=== PATIENT | female | born 1980 | race Two or more races ===

== ENCOUNTER 2017-09-14 08:56 | Day surgery (SDC) | payer OTHER ==
[~2017-09-14 08:56] MED LIST: Bupivacaine 0.25% 10 ML SDV ONE; Lactated Ringers 1,000 ML IV SCH; Methylene Blue 50 MG/10 ML Ampule ONE; Sodium Chloride 0.9% 10 ML Syringe FLUSH PRN; Sodium Chloride 0.9% 2.5 ML Syringe FLUSH PRN; Vasopressin 20 Units/1 ML MDV ONE
[2017-09-14] MEDS ORDERED: Doxycycline 100 MG Cap PO ONE (09:00)
--- NOTE | 2017-09-14 09:45 | PCM.PREANE ---
Preanesthetic Assessment - Anesthesia/Transfusion/Family Hx Anesthesia History: No Prior Anesthesia Family History of Anesthesia Reaction: No Transfusion History: No Prior Transfusion(s) Intubation History: Unknown - Review of Systems General: No Symptoms Pulmonary: No Symptoms Cardiovascular: No Symptoms Gastrointestinal: No Symptoms Neurological: No Symptoms Other: Reports: None - Physical Assessment Height: 1.57 m Weight: 75.75 kg ASA Class: 2 Mental Status: Alert & Oriented x3 Airway Class: Mallampati = 2 Dentition: Reports: Normal Dentition Thyro-Mental Finger Breadths: 3 Mouth Opening Finger Breadths: 3 ROM/Head Extension: Full Lungs: Clear to Auscultation, Normal Respiratory Effort Cardiovascular: Regular Rate, Regular Rhythm - Allergies Allergies/Adverse Reactions: Allergies Allergy/AdvReac Type Severity Reaction Status Date / Time No Known Allergies Allergy Verified 09/09/17 12:58 - Blood Blood Available: No - Anesthesia Plan Pre-Op Medication Ordered: None - Acknowledgements Anesthesia Type Planned: General Anesthesia Pt an Appropriate Candidate for the Planned Anesthesia: Yes Alternatives and Risks of Anesthesia Discussed w Pt/Guardian: Yes Pt/Guardian Understands and Agrees with Anesthesia Plan: Yes PreAnesthesia Questionnaire Other HEENT History: wears glasses Gastrointestinal 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: Other (See Below) (h/o acid reflux, now ok) ELIGIBILITY MANAGER 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 Neurological 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: Migraines Other Neuro History: just started taking Propranolol fro migranes Psychiatric 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: Anxiety, Panic Attack Endocrine/Metabolic 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: Obesity/BMI 30+ Hematologic 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: Other (See Below) (h/o anemia) - SUBSTANCE USE Smoking Status *Q: Former Smoker (quit 09/05) Tobacco Use Within Last Twelve Months: No Recreational Drug Use History: No - HOME MEDS Home Medications: Home Meds Aspirin/Acetaminophen/Caffeine [Eql Migraine Formula Caplet] 2 tab PO Q6H PRN [History] Ethinyl Estradiol/Drospirenone [Loryna 3 MG-0.02 MG] 1 tab PO DAILY 09/09/17 [ History] FLUoxetine HCl [Prozac] 20 mg PO QAM 09/09/17 [History] LORazepam 1 mg PO TID PRN 09/09/17 [History] Propranolol [Inderal] 40 mg PO DAILY 09/09/17 [History] SUMAtriptan [Imitrex] 50 mg PO ASDIRECTED PRN 09/09/17 [History] tiZANidine [Zanaflex] 4 mg PO BEDTIME 09/09/17 [History] - CURRENT (IN HOUSE) MEDS Current Meds: Current Medications Lactated Ringer's (Ringers, Lactated) 1,000 mls @ 125 mls/hr IV ASDIRECTED TUNDE Last Admin: 09/14/17 09:22 Dose: 125 mls/hr Sodium Chloride (Saline Flush) 10 ml FLUSH ASDIRECTED PRN PRN Reason: Keep Vein Open Sodium Chloride (Saline Flush) 2.5 ml FLUSH ASDIRECTED PRN PRN Reason: Keep Vein Open Discontinued Medications Bupivacaine HCl (Sensorcaine-Mpf 0.25%) Confirm Administered Dose 20 ml .ROUTE .STK-MED ONE Stop: 09/14/17 08:46 Doxycycline Hyclate (Vibramycin) 100 mg PO ONETIME ONE Stop: 09/14/17 09:01 Last Admin: 09/14/17 09:25 Dose: 100 mg Methylene Blue (Provayblue) Confirm Administered Dose 50 mg .ROUTE .STK-MED ONE Stop: 09/14/17 08:45 Vasopressin (Vasopressin) Confirm Administered Dose 20 units .ROUTE .STK-MED ONE Stop: 09/14/17 08:45
[2017-09-14] MEDS ORDERED: Succinylcholine/Normal Saline 200 MG/10 ML Syringe ONE (10:14)
[2017-09-14] MEDS ORDERED: diphenhydrAMINE 50 MG/ML SDV ONE (10:14)
[2017-09-14] MEDS ORDERED: Lidocaine 2% 5 ML SDV ONE (10:14)
[2017-09-14] MEDS ORDERED: fentaNYL 250 MCG/5 ML SDV ONE (10:14)
[2017-09-14] MEDS ORDERED: Ondansetron 4 MG/2 ML SDV ONE (10:14)
[2017-09-14] MEDS ORDERED: Dexamethasone 4 MG/ML 5 ML MDV ONE (10:14)
[2017-09-14] MEDS ORDERED: Rocuronium 10 MG/ML 10 ML Syringe ONE (10:14)
[2017-09-14] MEDS ORDERED: ceFAZolin/Dextrose,Iso-Osmotic 2 GM/50 ML Duplex Bag IV ONE (10:14)
[2017-09-14] MEDS ORDERED: Midazolam 1 MG/ML 2 ML SDV ONE (10:14)
[2017-09-14] MEDS ORDERED: Propofol 200 MG/20 ML SDV ONE (10:14)
[2017-09-14] MEDS ORDERED: ePHEDrine 50 MG/ML SDV ONE (11:36)
[2017-09-14] MEDS ORDERED: Neostigmine Methylsulfate 1 MG/ML 5 ML Syringe ONE (12:46)
[2017-09-14] MEDS ORDERED: Glycopyrrolate 0.2 MG/ML SDV ONE (12:46)
[2017-09-14] MEDS ORDERED: Ketorolac 30 MG/ML SDV ONE (12:48)
[2017-09-14] MEDS: fentaNYL 100 MCG/2 ML SDV IVPUSH PRN ×2 (13:20→13:25)
--- NOTE | 2017-09-14 13:31 | PCM.OPNOTE ---
- General Post-Op/Procedure Note Date of Surgery/Procedure: 09/14/17 Operative Procedure(s): Hysteroscopy Dilatation and Curretage. Laparoscopy chromotubation Findings: 10 week sized anterverted uterus Hysteroscopy showed proliferative endometrium , bilateral ostia not visualised. there was no indentation of cavity by fibroid Laparoscopy showed Bulky uterus , Normal appearing tubes and ovaries , No endometriosis noted Minimal spillage from left tube , No spillage from right tube Fluid deficit; 600 LR Pre Op Diagnosis: Infertility. Chronic pelvic pain. Symptomatic fibroid uterus Post-Op Diagnosis: same Anesthesia Technique: General ET Tube Primary Surgeon: Peter Sandoval Anesthesia Provider: Sudhakar Griffin Radi Pathology: None Fluid Replacement, Intraop: 2,000 Output, Urine Amount: 0 Condition: Good
[2017-09-14 15:02] VITALS: BP 116/72
--- NOTE | 2017-09-17 11:36 | OR ---
SURGEON: LULA ARTHUR DATE OF PROCEDURE: 09/14/2017 OPERATIVE PROCEDURE: Hysteroscopy, dilatation and curettage, Diagnostic laparoscopy with chromopertubation PREOPERATIVE DIAGNOSES: Infertility, chronic pelvic pain, and symptomatic uterine fibroids. POSTOPERATIVE DIAGNOSES: Infertility, chronic pelvic pain, and symptomatic uterine fibroids. ANESTHESIA: General endotracheal. IV FLUID: 2000 mL. URINE OUTPUT: 0. ESTIMATED BLOOD LOSS: 5 mL. FINDING: A 10-week sized, anteverted, bulky uterus on examination. Hysteroscopy showed proliferative endometrium. Bilateral ostia not visualized. There was no indentation of the cavity by uterine fibroids. Laparoscopy showed a bulky uterus, normal-appearing tubes and ovaries. No endometriosis noted. Minimal spillage noted from the left tube. No spillage from the right tube. The fluid deficit was 600 of LR. 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 She was seen complaining of chronic pelvic pain, which was affecting her quality of life. The patient's exam was extremely tender in the office, and as a result, the patient had ultrasound done, which showed a fibroid uterus with hypoechoic heterogeneous right ovarian nodule that could not exclude also an endometrioma. The patient had a repeat ultrasound done, which showed the uterine fibroid and could not rule out submucosal component, and the endometrium was not fully evaluated, so a hysteroscopy was recommended. The patient also was consented for laparoscopic chromotubation. Due to the patient's chronic pelvic pain and inability to tolerate a vaginal exam and HSG , the patient As a result laparoscopic to assess for endometrosis and also chromotubation to evaluate for tubal patency . The patient was given these options, and the patient accepted. She was explained the risks, benefits, and alternatives, and she desired to proceed with a hysteroscopy and diagnositic laparoscopy with chromotubation DESCRIPTION OF PROCEDURE: The patient was taken to the operating room, where general anesthesia was administered without difficulty. The patient was placed in the dorsolithotomy position with Jose stirrups. An examination under anesthesia revealed a bulky uterus. The patient was then prepared and draped in normal sterile fashion. A weighted speculum was inserted into the posterior aspect of the vagina. A tenaculum was used to grasp the anterior lip of the cervix. The uterus was then carefully sounded to about 9 cm. The cervical os was sequentially dilated to accommodate the hysteroscope. The 0-degree MyoSure hysteroscope was then placed under direct visualization. The uterus was then distended with the distending media. The aforementioned findings were noted. The hysteroscope was then withdrawn,. The scope was withdrawn, and the dilatation and curettage was done. After this was done, the uterine manipulator was then placed into the cervix. Attention was then paid to the abdomen,a 5mm incision was made, after Marcaine was injected at the subumbilical fold. The trocar was then advanced through the incision via direct entry. Entry of cavity was confirmed by visualization and a low intraabdominal pressure .pneumoperitoneum was then obtained to 15 mmHg. The uterus was then manipulated to view the entire pelvic structures, and a right lower quadrant port was made 2 fingerbreadths medial and above the anterior superior iliac spine. The trocar was then placed under direct visualization. The ovary and tube were then manipulated on the right and left side to have a good visualization of the pelvis. No endometriosis deposit was noted. Then, methylene blue was injected via the manipulator into the uterus. Very minimal spillage was noted from the left tube. There was no spillage from the right tube. After this was done, the trocar was then removed. The pneumoperitoneum of the abdomen was then deflated. All instrument and pad counts were correct x2. The laparoscopic incision was sutured with 4-0 Monocryl. Bandage was placed. The patient tolerated the procedure well and was taken to the recovery room in stable condition. YURI LOU /[id number] SOURAV
== END 2017-09-14 14:45 | disposition home or self-care (01) ==
LOC: MERGE 08:56 → MW.SDS 08:56
PROVIDERS: ATTEND Obstetrics & Gynecology
DX: D25.9 Leiomyoma of uterus, unspecified (principal); N97.9 Female infertility, unspecified; G89.29 Other chronic pain; R10.2 Pelvic and perineal pain; F41.9 Anxiety disorder, unspecified; K21.9 Gastro-esophageal reflux disease without esophagitis; Z79.899 Other long term (current) drug therapy; Z87.891 Personal history of nicotine dependence
CPT/HCPCS: 36415; 49320; 58350; 58558; 84703; 85027; 86850; 86900; 86901; 88305; A9270; J0690; J1100; J1200; J1885; J2250; J2405; J3010; J7120; 00952; J2704

== ENCOUNTER 2017-12-07 06:45 | Observation (INO) | payer OTHER ==
[2017-12-07] MEDS ORDERED: Sodium Chloride 0.9% 10 ML Syringe FLUSH PRN (07:00)
[2017-12-07] MEDS ORDERED: Sodium Chloride 0.9% 2.5 ML Syringe FLUSH PRN (07:00)
[2017-12-07] MEDS: Lactated Ringers 1,000 ML IV SCH ×2 (07:15→15:39)
--- NOTE | 2017-12-07 07:15 | PCM.PREANE ---
Preanesthetic Assessment - Anesthesia/Transfusion/Family Hx Anesthesia History: Prior Anesthesia Without Reaction Family History of Anesthesia Reaction: No Transfusion History: No Prior Transfusion(s) Intubation History: Unknown - Review of Systems General: No Symptoms Pulmonary: No Symptoms Cardiovascular: No Symptoms Gastrointestinal: No Symptoms Neurological: No Symptoms Other: Reports: None - Physical Assessment Height: 1.57 m Weight: 77.564 kg ASA Class: 2 Mental Status: Alert & Oriented x3 Airway Class: Mallampati = 2 Dentition: Reports: Normal Dentition Thyro-Mental Finger Breadths: 3 Mouth Opening Finger Breadths: 2 ROM/Head Extension: Full Lungs: Clear to Auscultation, Normal Respiratory Effort Cardiovascular: Regular Rate, Regular Rhythm - Allergies Allergies/Adverse Reactions: Allergies Allergy/AdvReac Type Severity Reaction Status Date / Time No Known Allergies Allergy Verified 12/02/17 09:28 - Blood Blood Available: No - Anesthesia Plan Pre-Op Medication Ordered: None - Acknowledgements Anesthesia Type Planned: General Anesthesia Pt an Appropriate Candidate for the Planned Anesthesia: Yes Alternatives and Risks of Anesthesia Discussed w Pt/Guardian: Yes Pt/Guardian Understands and Agrees with Anesthesia Plan: Yes PreAnesthesia Questionnaire HEENT 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: Other (See Below) Other HEENT History: wears glasses Cardiovascular 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: Other (See Below) Other Cardiovascular History: states had a murmur in her early teens Respiratory 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: None Gastrointestinal 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: None, Other (See Below) (h/o GERD) Genitourinary 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: None BUCCARO 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 Other OB/BYN History: spontaneous AB x15 Musculoskeletal 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: None Neurological 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: Migraines Psychiatric 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: Anxiety, Depression, Panic Attack Endocrine/Metabolic 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: Obesity/BMI 30+ Hematologic 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: Other (See Below) (h/o anemia) Immunologic 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: None Oncologic (Cancer) 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: None Dermatologic 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: None - Infectious Disease History Infectious Disease 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: None - Past Surgical History Head Surgeries/Procedures: Reports: None HEENT Surgical 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: None Cardiovascular Surgical 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: None Respiratory Surgical 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: None GI Surgical 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: None Female Surgical 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: Other (See Below) Other Female Surgeries/Procedures: hysteroscopy Endocrine Surgical 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: None Musculoskeletal Surgical 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: None - SUBSTANCE USE Smoking Status *Q: Former Smoker Tobacco Use Within Last Twelve Months: No Recreational Drug Use History: No - HOME MEDS Home Medications: Home Meds Aspirin/Acetaminophen/Caffeine [Eql Migraine Formula Caplet] 2 tab PO Q6H PRN [History] FLUoxetine HCl [Prozac] 20 mg PO QAM 09/09/17 [History] LORazepam 1 mg PO TID PRN 09/09/17 [History] SUMAtriptan [Imitrex] 50 mg PO ASDIRECTED PRN 09/09/17 [History] tiZANidine [Zanaflex] 4 mg PO BEDTIME 09/09/17 [History] - CURRENT (IN HOUSE) MEDS Current Meds: Current Medications Cefazolin Sodium (Ancef) 1 gm IM ONETIME ONE Stop: 12/07/17 08:01 Lactated Ringer's (Ringers, Lactated) 1,000 mls @ 125 mls/hr IV ASDIRECTED TUNDE Sodium Chloride (Saline Flush) 10 ml FLUSH ASDIRECTED PRN PRN Reason: Keep Vein Open Sodium Chloride (Saline Flush) 2.5 ml FLUSH ASDIRECTED PRN PRN Reason: Keep Vein Open
[2017-12-07] MEDS ORDERED: Ketorolac 30 MG/ML SDV ONE (07:16)
[2017-12-07] MEDS ORDERED: Rocuronium 10 MG/ML 10 ML Syringe ONE (07:16)
[2017-12-07] MEDS ORDERED: fentaNYL 100 MCG/2 ML SDV ONE ×3 (07:16→11:12)
[2017-12-07] MEDS ORDERED: Lidocaine 2% 5 ML SDV ONE (07:16)
[2017-12-07] MEDS ORDERED: Midazolam 1 MG/ML 2 ML SDV ONE (07:16)
[2017-12-07] MEDS ORDERED: Ondansetron 4 MG/2 ML SDV ONE (07:16)
[2017-12-07] MEDS ORDERED: Glycopyrrolate 0.2 MG/ML SDV ONE ×2 (07:16→08:25)
[2017-12-07] MEDS ORDERED: fentaNYL 250 MCG/5 ML SDV ONE (07:17)
[2017-12-07] MEDS ORDERED: Propofol 200 MG/20 ML SDV ONE (07:22)
[2017-12-07 07:28] LABS: CHLORIDE,CL 102 mmol/L (98-107); SODIUM,NA 135 mmol/L (136-145)
[2017-12-07] MEDS ORDERED: Bupivacaine 0.5% 30 ML SDV ONE (07:28)
[2017-12-07] MEDS ORDERED: Bupivacaine 0.25% 10 ML SDV ONE (07:28)
[2017-12-07] MEDS ORDERED: Octyl 2-Cyanoacrylate 1 Tube ONE (07:28)
[2017-12-07] MEDS ORDERED: Methylene Blue 50 MG/10 ML Ampule ONE (07:51)
[2017-12-07] MEDS ORDERED: Oxytocin 10 Units/1 ML SDV ONE (07:53)
[2017-12-07] MEDS ORDERED: Sodium Chloride 0.9% 20 ML ONE (07:54)
[2017-12-07] MEDS ORDERED: ceFAZolin 1 GM Vial ONE (07:54)
[2017-12-07] MEDS ORDERED: ceFAZolin 1 GM Vial IM ONE (08:00)
[2017-12-07] MEDS ORDERED: Vasopressin 20 Units/1 ML MDV ONE (08:03)
[2017-12-07] MEDS ORDERED: Neostigmine Methylsulfate 1 MG/ML 5 ML Syringe ONE (08:25)
[2017-12-07] MEDS ORDERED: Phenylephrine/Normal Saline 100 MCG/ML 10 ML Syringe ONE (08:25)
[2017-12-07] MEDS ORDERED: Promethazine 25 MG/ML SDV IM PRN (10:39)
[2017-12-07] MEDS ORDERED: Ketorolac 30 MG/ML SDV IVPUSH ONE (10:39)
[2017-12-07] MEDS ORDERED: Morphine 4 MG/ML Syringe IVPUSH PRN (10:39)
[2017-12-07] MEDS ORDERED: Ondansetron 4 MG/2 ML SDV IVPUSH PRN (10:39)
--- NOTE | 2017-12-07 10:39 | PCM.OPNOTE ---
- General Post-Op/Procedure Note Date of Surgery/Procedure: 12/07/17 Operative Procedure(s): Abdominal myomectomy Findings: Fibroid uterus , with Normal appearing uterus and ovaries 4cm fibroid removed from anterior uterine wall Pre Op Diagnosis: Chronic pelvic pain. Uterine fibroid. Recurrent spontaneous Post-Op Diagnosis: same Anesthesia Technique: General LMA Primary Surgeon: Peter Sandoval Secondary Surgeon: Dorothea Bose Pathology: Uterine fibroid Fluid Replacement, Intraop: 1,200 Output, Urine Amount: 150 EBL in mLs: 20 Complications: None Condition: Good Free Text/Narrative:: Anterior fibroid removed, Pitressin 20u in 30 units of NS myometrium sutured in layers with 0 vicryl Serosa with baseball sutured with 3.0 vicryl
--- NOTE | 2017-12-07 11:08 | PCM.POSTAN ---
POST ANESTHESIA ASSESSMENT - MENTAL STATUS Mental Status: Alert, Oriented - VITAL SIGNS Pulse Rate: 88 SaO2: 99 Resp Rate: 18 Blood Pressure: 116/71 - RESPIRATORY Respiratory Status: Respiratory Rate WNL, Airway Patent, O2 Saturation Stable - CARDIOVASCULAR CV Status: Pulse Rate WNL, Blood Pressure Stable - GASTROINTESTINAL GI Status: No Symptoms - POST OP HYDRATION Hydration Status: Adequate & Stable
[2017-12-07] MEDS: fentaNYL 100 MCG/2 ML SDV IVPUSH PRN ×2 (11:11→11:16)
[2017-12-07] MEDS: Ketorolac 30 MG/ML SDV IVPUSH SCH ×3 (11:59→23:00)
[2017-12-07] MEDS: Metoclopramide 10 MG/2 ML SDV IVPUSH SCH ×2 (12:26→20:17)
[2017-12-07] MEDS: Acetaminophen/oxyCODONE 325-5 MG Tab PO PRN ×2 (15:43→20:19)
--- NOTE | 2017-12-07 16:26 | PCM48HPAN ---
Post Anesthesia Note - EVALUATION WITHIN 48HRS OF ANESTHETIC Vital Signs in Normal Range: Yes Patient Participated in Evaluation: Yes Respiratory Function Stable: Yes Airway Patent: Yes Cardiovascular Function Stable: Yes Hydration Status Stable: Yes Pain Control Satisfactory: Yes Nausea and Vomiting Control Satisfactory: Yes Mental Status Recovered: Yes Pulse Rate: 88 Resp Rate: 16 Blood Pressure: 116/71
--- NOTE | 2017-12-07 20:50 | PCM.SURGPN ---
- General Info Date of Service: 12/07/17 Date of Surgery/Procedure: 12/07/17 POD#: 0 Post-Op Diagnosis: Fibroid uterus Functional Status: Reports: Pain Controlled, Tolerating Diet, Other (Quinn in place 55cc/hr ) - Review of Systems General: Reports: No Symptoms HEENT: Reports: No Symptoms Pulmonary: Reports: No Symptoms Cardiovascular: Reports: No Symptoms Gastrointestinal: Reports: No Symptoms Genitourinary: Reports: No Symptoms Musculoskeletal: Reports: No Symptoms Skin: Reports: No Symptoms Neurological: Reports: No Symptoms Psychiatric: Reports: No Symptoms - Patient Data Vitals - Most Recent: Last Vital Signs Temp 36.8 C 12/07/17 19:23 Pulse 83 12/07/17 19:23 Resp 20 12/07/17 19:23 BP 104/56 L 12/07/17 19:23 Pulse Ox 96 12/07/17 19:23 Weight - Most Recent: 77.564 kg I&O - Last 24 Hours: Intake & Output 12/07/17 12/07/17 12/07/17 06:59 14:59 22:59 Intake Total 3100 Output Total 340 160 Balance 2760 -160 Lab Results Last 24 Hrs: Laboratory Results - last 24 hr 12/07/17 12/07/17 12/07/17 Range/Units 07:05 07:05 07:05 WBC 9.04 (4.0-11.0) K/uL RBC 5.00 (4.30-5.90) M/uL Hgb 12.0 (12.0-16.0) g/dL Hct 38.1 (36.0-46.0) % MCV 76.2 L (80.0-98.0) fL MCH 24.0 L (27.0-32.0) pg MCHC 31.5 (31.0-37.0) g/dL RDW Std Deviation 45.1 (28.0-62.0) fl RDW Coeff of [place] 17 H (11.0-15.0) % Plt Count 423 H (150-400) K/uL MPV 9.40 (7.40-12.00) fL Nucleated RBC % 0.0 /100WBC Nucleated RBCs # 0 K/uL Sodium 135 L (136-145) mmol/L Potassium 4.1 (3.5-5.1) mmol/L Chloride 102 (98-107) mmol/L Carbon Dioxide 24.9 (21.0-32.0) mmol/L BUN 16 (7.0-18.0) mg/dL Creatinine 1.0 (0.6-1.0) mg/dL Est Cr Clr Drug Dosing 60.92 mL/min Estimated GFR (MDRD) > 60.0 ml/min Glucose 110 H (74-106) mg/dL Calcium 8.7 (8.5-10.1) mg/dL HCG, Qual NEGATIVE (NEG) Blood Type Antibody Screen Crossmatch 12/07/17 Range/Units 07:05 WBC (4.0-11.0) K/uL RBC (4.30-5.90) M/uL Hgb (12.0-16.0) g/dL Hct (36.0-46.0) % MCV (80.0-98.0) fL MCH (27.0-32.0) pg MCHC (31.0-37.0) g/dL RDW Std Deviation (28.0-62.0) fl RDW Coeff of [place] (11.0-15.0) % Plt Count (150-400) K/uL MPV (7.40-12.00) fL Nucleated RBC % /100WBC Nucleated RBCs # K/uL Sodium (136-145) mmol/L Potassium (3.5-5.1) mmol/L Chloride (98-107) mmol/L Carbon Dioxide (21.0-32.0) mmol/L BUN (7.0-18.0) mg/dL Creatinine (0.6-1.0) mg/dL Est Cr Clr Drug Dosing mL/min Estimated GFR (MDRD) ml/min Glucose (74-106) mg/dL Calcium (8.5-10.1) mg/dL HCG, Qual (NEG) Blood Type O POSITIVE Antibody Screen NEGATIVE Crossmatch See Detail Med Orders - Current: Current Medications Fentanyl (Sublimaze) 50 mcg IVPUSH Q5M PRN PRN Reason: Pain (severe 7-10) Stop: 12/08/17 11:10 Last Admin: 12/07/17 11:16 Dose: 50 mcg Lactated Ringer's (Ringers, Lactated) 1,000 mls @ 125 mls/hr IV ASDIRECTED [facility] Last Admin: 12/07/17 15:39 Dose: 125 mls/hr Ketorolac Tromethamine (Toradol) 30 mg IVPUSH Q6H [facility] Stop: 12/12/17 10:46 Last Admin: 12/07/17 17:09 Dose: 30 mg Metoclopramide HCl (Reglan) 10 mg IVPUSH Q8H [facility] Last Admin: 12/07/17 20:17 Dose: 10 mg Morphine Sulfate (Morphine) 4 mg IVPUSH Q2H PRN PRN Reason: Pain (severe 7-10) Last Admin: 12/07/17 10:54 Dose: 4 mg Ondansetron HCl (Zofran) 4 mg IVPUSH Q6H PRN PRN Reason: Nausea/Vomiting Oxycodone/Acetaminophen (Percocet 325-5 Mg) 1 tab PO Q4H PRN PRN Reason: Pain (moderate 4-6) Last Admin: 12/07/17 20:19 Dose: 1 tab Oxycodone/Acetaminophen (Percocet 325-5 Mg) 2 tab PO Q4H PRN PRN Reason: Pain (moderate 4-6) Promethazine HCl (Phenergan) 25 mg IM Q6H PRN PRN Reason: Nausea/Vomiting Sodium Chloride (Saline Flush) 10 ml FLUSH ASDIRECTED PRN PRN Reason: Keep Vein Open Sodium Chloride (Saline Flush) 2.5 ml FLUSH ASDIRECTED PRN PRN Reason: Keep Vein Open Discontinued Medications Bupivacaine HCl (Sensorcaine-Mpf 0.25%) Confirm Administered Dose 20 ml .ROUTE .STK-MED ONE Stop: 12/07/17 07:29 Bupivacaine HCl (Marcaine 0.5%) Confirm Administered Dose 30 ml .ROUTE .STK-MED ONE Stop: 12/07/17 07:29 Cefazolin Sodium (Ancef) 1 gm IM ONETIME ONE Stop: 12/07/17 08:01 Last Admin: 12/07/17 12:11 Dose: Not Given Cefazolin Sodium (Ancef) Confirm Administered Dose 1 gm .ROUTE .STK-MED ONE Stop: 12/07/17 07:55 Fentanyl (Sublimaze) Confirm Administered Dose 100 mcg .ROUTE .STK-MED ONE Stop: 12/07/17 07:17 Fentanyl (Sublimaze) Confirm Administered Dose 250 mcg .ROUTE .[facility] ONE Stop: 12/07/17 07:18 Fentanyl (Sublimaze) Confirm Administered Dose 100 mcg .ROUTE .[facility] ONE Stop: 12/07/17 09:37 Fentanyl (Sublimaze) Confirm Administered Dose 100 mcg .ROUTE .[facility] ONE Stop: 12/07/17 11:13 Last Admin: 12/07/17 12:17 Dose: Not Given Glycopyrrolate (Robinul) Confirm Administered Dose 0.2 mg .ROUTE .[facility] ONE Stop: 12/07/17 07:17 Glycopyrrolate (Robinul) Confirm Administered Dose 0.6 mg .ROUTE .[facility] ONE Stop: 12/07/17 08:26 Sodium Chloride (Normal Saline) Confirm Administered Dose 20 mls @ as directed .ROUTE .[facility] ONE Stop: 12/07/17 07:55 Ketorolac Tromethamine (Toradol) Confirm Administered Dose 30 mg .ROUTE .[facility] ONE Stop: 12/07/17 07:17 Ketorolac Tromethamine (Toradol) 30 mg IVPUSH ONETIME ONE Stop: 12/07/17 10:40 Last Admin: 12/07/17 12:19 Dose: Not Given Lidocaine (Xylocaine-Mpf 2%) Confirm Administered Dose 5 ml .ROUTE .[facility] ONE Stop: 12/07/17 07:17 Methylene Blue (Provayblue) Confirm Administered Dose 50 mg .ROUTE .[facility] ONE Stop: 12/07/17 07:52 Midazolam HCl (Versed 1 Mg/Ml) Confirm Administered Dose 2 mg .ROUTE .[facility] ONE Stop: 12/07/17 07:17 Neostigmine Methylsulfate (Neostigmine) Confirm Administered Dose 5 mg .ROUTE .[facility] ONE Stop: 12/07/17 08:26 Octyl Cyanoacrylate (Dermabond Advance) Confirm Administered Dose 1 applic .ROUTE .[facility] ONE Stop: 12/07/17 07:29 Ondansetron HCl (Zofran) Confirm Administered Dose 4 mg .ROUTE .[facility] ONE Stop: 12/07/17 07:17 Oxytocin (Pitocin) Confirm Administered Dose 20 unit .ROUTE .[facility] ONE Stop: 12/07/17 07:54 Phenylephrine HCl (Phenylephrine In Ns 100 Mcg/Ml) Confirm Administered Dose 1 mg .ROUTE .STK-MED ONE Stop: 12/07/17 08:26 Propofol (Diprivan 20 Ml) Confirm Administered Dose 200 mg .ROUTE .STK-MED ONE Stop: 12/07/17 07:23 Rocuronium [place] (Zemuron) Confirm Administered Dose 100 mg .ROUTE .STK-MED ONE Stop: 12/07/17 07:17 Vasopressin (Vasopressin) Confirm Administered Dose 20 units .ROUTE .STK-MED ONE Stop: 12/07/17 08:04 - Exam Wound/Incisions: Dressing Dry and Intact General: Alert Neck: Supple Lungs: Clear to Auscultation Cardiovascular: Regular Rate, Regular Rhythm GI/Abdominal Exam: Other (Dressing c/d/i) Skin: Warm Neurological: No New Focal Deficit Psy/Mental Status: Alert - Problem List & Annotations (1) S/P myomectomy SNOMED Code(s): 561675467, 519467580 Code(s): Z98.890 - OTHER SPECIFIED POSTPROCEDURAL STATES Status: Acute Current Visit: Yes - Problem List Review Problem List Initiated/Reviewed/Updated: Yes - My Orders Last 24 Hours: Active Orders 24 hr Category Date Time Status Patient Status [ADT] Routine ADT 12/07/17 06:00 Active Patient Status [ADT] Routine ADT 12/07/17 10:39 Active Bradycardia-Neuroaxis [facility] [RC] ROUTINE Care 12/07/17 11:10 Active Hypertension-Neuroaxis [facility] [RC] ROUTINE Care 12/07/17 11:10 Active Hypotension-Neuroaxis [employer] [RC] ROUTINE Care 12/07/17 11:10 Active Notify Provider Intake and Out [RC] ASDIRECTED Care 12/07/17 10:39 Active Notify Provider Vital Signs [RC] ASDIRECTED Care 12/07/17 10:39 Active Oxygen Therapy [RC] ASDIRECTED Care 12/07/17 10:39 Active RT Incentive Spirometry [RC] Q2HWA Care 12/07/17 10:39 Active Up With Assistance [RC] PER UNIT ROUTINE Care 12/07/17 10:39 Active Up ad Mariely [RC] PER UNIT ROUTINE Care 12/07/17 10:39 Active Urinary Catheter Removal [RC] Per Unit Routine Care 12/07/17 10:39 Active Vital Signs [RC] PER UNIT ROUTINE Care 12/07/17 06:00 Active Vital Signs [RC] PER UNIT ROUTINE Care 12/07/17 10:39 Active Advance Diet Instructions [DIET] Diet 12/07/17 Lunch Active BASIC METABOLIC PANEL,BMP [CHEM] AM Lab 12/08/17 05:11 Ordered CBC WITH AUTO DIFF [HEME] AM Lab 12/08/17 05:11 Ordered RED BLOOD CELLS LP [BBK] Urgent Lab 12/07/17 07:05 Results TYPE AND SCREEN [BBK] Urgent Lab 12/07/17 07:05 Results Acetaminophen/oxyCODONE [Percocet 325-5 MG] Med 12/07/17 10:39 Active 1 tab PO Q4H PRN Acetaminophen/oxyCODONE [Percocet 325-5 MG] Med 12/07/17 10:39 Active 2 tab PO Q4H PRN Ketorolac [Toradol] Med 12/07/17 11:00 Active 30 mg IVPUSH Q6H Lactated Ringers [Ringers, Lactated] 1,000 ml Med 12/07/17 06:00 Active IV ASDIRECTED Metoclopramide [Reglan] Med 12/07/17 11:00 Active 10 mg IVPUSH Q8H Morphine Med 12/07/17 10:39 Active 4 mg IVPUSH Q2H PRN Ondansetron [Zofran] Med 12/07/17 10:39 Active 4 mg IVPUSH Q6H PRN Promethazine [Phenergan] Med 12/07/17 10:39 Active 25 mg IM Q6H PRN Sodium Chloride 0.9% [Saline Flush] Med 12/07/17 07:00 Active 10 ml FLUSH ASDIRECTED PRN Sodium Chloride 0.9% [Saline Flush] Med 12/07/17 07:00 Active 2.5 ml FLUSH ASDIRECTED PRN fentaNYL [Sublimaze] Med 12/07/17 11:10 Active 50 mcg IVPUSH Q5M PRN Peripheral IV Discontinue [OM.PC] Routine Oth 12/07/17 10:39 Ordered Peripheral IV Insertion Adult [OM.PC] Urgent Oth 12/07/17 06:00 Ordered Sequential Compression Device [OM.PC] Per Unit Routine Oth 12/07/17 06:00 Ordered Sequential Compression Device [OM.PC] Per Unit Routine Oth 12/07/17 10:39 Ordered Resuscitation Status Routine Resus Stat 12/07/17 10:39 Ordered Medication Orders Fentanyl (Sublimaze) 50 mcg IVPUSH Q5M PRN PRN Reason: Pain (severe 7-10) Stop: 12/08/17 11:10 Last Admin: 12/07/17 11:16 Dose: 50 mcg Admin: 12/07/17 11:11 Dose: 50 mcg Lactated Ringer's (Ringers, Lactated) 1,000 mls @ 125 mls/hr IV ASDIRECTED [facility] Last Admin: 12/07/17 15:39 Dose: 125 mls/hr Infusion: 12/07/17 15:15 Dose: 125 mls/hr Admin: 12/07/17 07:15 Dose: 125 mls/hr Ketorolac Tromethamine (Toradol) 30 mg IVPUSH Q6H [facility] Stop: 12/12/17 10:46 Last Admin: 12/07/17 17:09 Dose: 30 mg Admin: 12/07/17 11:59 Dose: Metoclopramide HCl (Reglan) 10 mg IVPUSH Q8H [facility] Last Admin: 12/07/17 20:17 Dose: 10 mg Admin: 12/07/17 12:26 Dose: 10 mg Morphine Sulfate (Morphine) 4 mg IVPUSH Q2H PRN PRN Reason: Pain (severe 7-10) Last Admin: 12/07/17 10:54 Dose: 4 mg Ondansetron HCl (Zofran) 4 mg IVPUSH Q6H PRN PRN Reason: Nausea/Vomiting Oxycodone/Acetaminophen (Percocet 325-5 Mg) 1 tab PO Q4H PRN PRN Reason: Pain (moderate 4-6) Last Admin: 12/07/17 20:19 Dose: 1 tab Admin: 12/07/17 15:43 Dose: 1 tab Oxycodone/Acetaminophen (Percocet 325-5 Mg) 2 tab PO Q4H PRN PRN Reason: Pain (moderate 4-6) Promethazine HCl (Phenergan) 25 mg IM Q6H PRN PRN Reason: Nausea/Vomiting Sodium Chloride (Saline Flush) 10 ml FLUSH ASDIRECTED PRN PRN Reason: Keep Vein Open Sodium Chloride (Saline Flush) 2.5 ml FLUSH ASDIRECTED PRN PRN Reason: Keep Vein Open - Assessment Assessment (Free Text/Narrative):: 37yo P0 ,0 , 15,0 s/p abdominal myomectomy , POD 0 stable - Plan Plan (Free Text/Narrative):: Incentive spiromentry IVF Toradol q 6hrs Pain control as needed SCD Labs in Am
[2017-12-08] MEDS: Acetaminophen/oxyCODONE 325-5 MG Tab PO PRN ×4 (00:07→19:31)
[2017-12-08] MEDS: Lactated Ringers 1,000 ML IV SCH (03:51)
[2017-12-08] MEDS: Metoclopramide 10 MG/2 ML SDV IVPUSH SCH ×3 (04:06→19:34)
[2017-12-08] MEDS: Ketorolac 30 MG/ML SDV IVPUSH SCH ×2 (05:14→11:38)
[2017-12-08] MEDS ORDERED: Ibuprofen 600 MG Tab PO PRN (08:46)
--- NOTE | 2017-12-08 08:51 | PCM.SURGPN ---
- General Info Date of Service: 12/08/17 Date of Surgery/Procedure: 12/07/17 POD#: 1 Functional Status: Reports: Pain Controlled, Tolerating Diet, Ambulating, Urinating - Review of Systems General: Reports: No Symptoms HEENT: Reports: No Symptoms Pulmonary: Reports: No Symptoms Cardiovascular: Reports: No Symptoms Gastrointestinal: Reports: No Symptoms Genitourinary: Reports: No Symptoms Musculoskeletal: Reports: No Symptoms Skin: Reports: No Symptoms Neurological: Reports: No Symptoms Psychiatric: Reports: No Symptoms - Patient Data Vitals - Most Recent: Last Vital Signs Temp 36.3 C 12/08/17 03:53 Pulse 88 12/08/17 03:53 Resp 20 12/08/17 03:53 BP 96/54 L 12/08/17 03:53 Pulse Ox 96 12/08/17 03:53 Weight - Most Recent: 77.564 kg I&O - Last 24 Hours: Intake & Output 12/07/17 12/08/17 12/08/17 22:59 06:59 14:59 Intake Total 1271 Output Total 1235 975 Balance -1235 296 Lab Results Last 24 Hrs: Laboratory Results - last 24 hr 12/08/17 12/08/17 Range/Units 05:08 05:08 WBC 9.52 (4.0-11.0) K/uL RBC 3.90 L (4.30-5.90) M/uL Hgb 9.4 L (12.0-16.0) g/dL Hct 30.3 L (36.0-46.0) % MCV 77.7 L (80.0-98.0) fL MCH 24.1 L (27.0-32.0) pg MCHC 31.0 (31.0-37.0) g/dL RDW Std Deviation 47.6 (28.0-62.0) fl RDW Coeff of [place] 17 H (11.0-15.0) % Plt Count 311 (150-400) K/uL MPV 9.40 (7.40-12.00) fL Neut % (Auto) 60.3 (48.0-80.0) % Lymph % (Auto) 29.9 (16.0-40.0) % [place] % (Auto) 7.2 (0.0-15.0) % Eos % (Auto) 2.4 (0.0-7.0) % Baso % (Auto) 0.2 (0.0-1.5) % Neut # (Auto) 5.7 (1.4-5.7) K/uL Lymph # (Auto) 2.9 H (0.6-2.4) K/uL [place] # (Auto) 0.7 (0.0-0.8) K/uL Eos # (Auto) 0.2 (0.0-0.7) K/uL Baso # (Auto) 0.0 (0.0-0.1) K/uL Nucleated RBC % 0.0 /100WBC Nucleated RBCs # 0 K/uL Sodium 137 (136-145) mmol/L Potassium 4.4 (3.5-5.1) mmol/L Chloride 104 (98-107) mmol/L Carbon Dioxide 25.8 (21.0-32.0) mmol/L BUN 16 (7.0-18.0) mg/dL Creatinine 1.1 H (0.6-1.0) mg/dL Est Cr Clr Drug Dosing 55.38 mL/min Estimated GFR (MDRD) 55.9 ml/min Glucose 115 H (74-106) mg/dL Calcium 8.3 L (8.5-10.1) mg/dL Med Orders - Current: Current Medications Fentanyl (Sublimaze) 50 mcg IVPUSH Q5M PRN PRN Reason: Pain (severe 7-10) Stop: 12/08/17 11:10 Last Admin: 12/07/17 11:16 Dose: 50 mcg Lactated Ringer's (Ringers, Lactated) 1,000 mls @ 125 mls/hr IV ASDIRECTED [facility] Last Admin: 12/08/17 03:51 Dose: 125 mls/hr Ibuprofen (Motrin) 600 mg PO Q6H PRN PRN Reason: Abdominal Pain Ketorolac Tromethamine (Toradol) 30 mg IVPUSH Q6H [facility] Stop: 12/12/17 10:46 Last Admin: 12/08/17 05:14 Dose: 30 mg Metoclopramide HCl (Reglan) 10 mg IVPUSH Q8H [facility] Last Admin: 12/08/17 04:06 Dose: 10 mg Morphine Sulfate (Morphine) 4 mg IVPUSH Q2H PRN PRN Reason: Pain (severe 7-10) Last Admin: 12/07/17 10:54 Dose: 4 mg Ondansetron HCl (Zofran) 4 mg IVPUSH Q6H PRN PRN Reason: Nausea/Vomiting Oxycodone/Acetaminophen (Percocet 325-5 Mg) 1 tab PO Q4H PRN PRN Reason: Pain (moderate 4-6) Last Admin: 12/07/17 20:19 Dose: 1 tab Oxycodone/Acetaminophen (Percocet 325-5 Mg) 2 tab PO Q4H PRN PRN Reason: Pain (moderate 4-6) Last Admin: 12/08/17 06:39 Dose: 2 tab Promethazine HCl (Phenergan) 25 mg IM Q6H PRN PRN Reason: Nausea/Vomiting Sodium Chloride (Saline Flush) 10 ml FLUSH ASDIRECTED PRN PRN Reason: Keep Vein Open Sodium Chloride (Saline Flush) 2.5 ml FLUSH ASDIRECTED PRN PRN Reason: Keep Vein Open Discontinued Medications Bupivacaine HCl (Sensorcaine-Mpf 0.25%) Confirm Administered Dose 20 ml .ROUTE .STK-MED ONE Stop: 12/07/17 07:29 Bupivacaine HCl (Marcaine 0.5%) Confirm Administered Dose 30 ml .ROUTE .STK-MED ONE Stop: 12/07/17 07:29 Cefazolin Sodium (Ancef) 1 gm IM ONETIME ONE Stop: 12/07/17 08:01 Last Admin: 12/07/17 12:11 Dose: Not Given Cefazolin Sodium (Ancef) Confirm Administered Dose 1 gm .ROUTE .STK-MED ONE Stop: 12/07/17 07:55 Fentanyl (Sublimaze) Confirm Administered Dose 100 mcg .ROUTE .STK-MED ONE Stop: 12/07/17 07:17 Fentanyl (Sublimaze) Confirm Administered Dose 250 mcg .ROUTE .STK-MED ONE Stop: 12/07/17 07:18 Fentanyl (Sublimaze) Confirm Administered Dose 100 mcg .ROUTE .STK-MED ONE Stop: 12/07/17 09:37 Fentanyl (Sublimaze) Confirm Administered Dose 100 mcg .ROUTE .STK-MED ONE Stop: 12/07/17 11:13 Last Admin: 12/07/17 12:17 Dose: Not Given Glycopyrrolate (Robinul) Confirm Administered Dose 0.2 mg .ROUTE .[facility] ONE Stop: 12/07/17 07:17 Glycopyrrolate (Robinul) Confirm Administered Dose 0.6 mg .ROUTE .[facility] ONE Stop: 12/07/17 08:26 Sodium Chloride (Normal Saline) Confirm Administered Dose 20 mls @ as directed .ROUTE .[facility] ONE Stop: 12/07/17 07:55 Ketorolac Tromethamine (Toradol) Confirm Administered Dose 30 mg .ROUTE .[facility]- [facility] ONE Stop: 12/07/17 07:17 Ketorolac Tromethamine (Toradol) 30 mg IVPUSH ONETIME ONE Stop: 12/07/17 10:40 Last Admin: 12/07/17 12:19 Dose: Not Given Lidocaine (Xylocaine-Mpf 2%) Confirm Administered Dose 5 ml .ROUTE .[facility] ONE Stop: 12/07/17 07:17 Methylene Blue (Provayblue) Confirm Administered Dose 50 mg .ROUTE .[facility] ONE Stop: 12/07/17 07:52 Midazolam HCl (Versed 1 Mg/Ml) Confirm Administered Dose 2 mg .ROUTE .[facility] ONE Stop: 12/07/17 07:17 Neostigmine Methylsulfate (Neostigmine) Confirm Administered Dose 5 mg .ROUTE .[facility] ONE Stop: 12/07/17 08:26 Octyl Cyanoacrylate (Dermabond Advance) Confirm Administered Dose 1 applic .ROUTE .[facility] ONE Stop: 12/07/17 07:29 Ondansetron HCl (Zofran) Confirm Administered Dose 4 mg .ROUTE .[facility] ONE Stop: 12/07/17 07:17 Oxytocin (Pitocin) Confirm Administered Dose 20 unit .ROUTE .[facility]-MED ONE Stop: 12/07/17 07:54 Phenylephrine HCl (Phenylephrine In Ns 100 Mcg/Ml) Confirm Administered Dose 1 mg .ROUTE .STK-MED ONE Stop: 12/07/17 08:26 Propofol (Diprivan 20 Ml) Confirm Administered Dose 200 mg .ROUTE .STK-MED ONE Stop: 12/07/17 07:23 Rocuronium [place] (Zemuron) Confirm Administered Dose 100 mg .ROUTE .STK-MED ONE Stop: 12/07/17 07:17 Vasopressin (Vasopressin) Confirm Administered Dose 20 units .ROUTE .STK-MED ONE Stop: 12/07/17 08:04 - Exam Wound/Incisions: Dressing Dry and Intact General: Alert HEENT: Pupils Equal Neck: Supple Lungs: Clear to Auscultation Cardiovascular: Regular Rate, Regular Rhythm GI/Abdominal Exam: Normal Bowel Sounds Extremities: Normal Inspection - Problem List & Annotations (1) S/P myomectomy SNOMED Code(s): 383796231, 782816806 Code(s): Z98.890 - OTHER SPECIFIED POSTPROCEDURAL STATES Status: Acute Current Visit: Yes - Problem List Review Problem List Initiated/Reviewed/Updated: Yes - My Orders Last 24 Hours: Active Orders 24 hr Category Date Time Status Patient Status [ADT] Routine ADT 12/07/17 10:39 Active Bradycardia-Neuroaxis [employer] [RC] ROUTINE Care 12/07/17 11:10 Active Hypertension-Neuroaxis [facility] [RC] ROUTINE Care 12/07/17 11:10 Active Hypotension-Neuroaxis [employer] [RC] ROUTINE Care 12/07/17 11:10 Active Notify Provider Intake and Out [RC] ASDIRECTED Care 12/07/17 10:39 Active Notify Provider Vital Signs [RC] ASDIRECTED Care 12/07/17 10:39 Active Oxygen Therapy [RC] ASDIRECTED Care 12/07/17 10:39 Active RT Incentive Spirometry [RC] Q2HWA Care 12/07/17 10:39 Active Up With Assistance [RC] PER UNIT ROUTINE Care 12/07/17 10:39 Active Up ad Mariely [RC] PER UNIT ROUTINE Care 12/07/17 10:39 Active Urinary Catheter Removal [RC] Per Unit Routine Care 12/07/17 10:39 Active Vital Signs [RC] PER UNIT ROUTINE Care 12/07/17 10:39 Active Advance Diet Instructions [DIET] Diet 12/07/17 Lunch Active Acetaminophen/oxyCODONE [Percocet 325-5 MG] Med 12/07/17 10:39 Active 1 tab PO Q4H PRN Acetaminophen/oxyCODONE [Percocet 325-5 MG] Med 12/07/17 10:39 Active 2 tab PO Q4H PRN Enoxaparin [Lovenox] Med 12/08/17 09:00 Ordered 40 mg SUBCUT Q24H Ibuprofen [Motrin] Med 12/08/17 08:46 Ordered 600 mg PO Q6H PRN Ketorolac [Toradol] Med 12/07/17 11:00 Active 30 mg IVPUSH Q6H Metoclopramide [Reglan] Med 12/07/17 11:00 Active 10 mg IVPUSH Q8H Morphine Med 12/07/17 10:39 Active 4 mg IVPUSH Q2H PRN Ondansetron [Zofran] Med 12/07/17 10:39 Active 4 mg IVPUSH Q6H PRN Promethazine [Phenergan] Med 12/07/17 10:39 Active 25 mg IM Q6H PRN fentaNYL [Sublimaze] Med 12/07/17 11:10 Active 50 mcg IVPUSH Q5M PRN Peripheral IV Discontinue [OM.PC] Routine Oth 12/07/17 10:39 Ordered Sequential Compression Device [OM.PC] Per Unit Routine Oth 12/07/17 10:39 Ordered Resuscitation Status Routine Resus Stat 12/07/17 10:39 Ordered Medication Orders Fentanyl (Sublimaze) 50 mcg IVPUSH Q5M PRN PRN Reason: Pain (severe 7-10) Stop: 12/08/17 11:10 Last Admin: 12/07/17 11:16 Dose: 50 mcg Admin: 12/07/17 11:11 Dose: 50 mcg Lactated Ringer's (Ringers, Lactated) 1,000 mls @ 125 mls/hr IV ASDIRECTED [facility] Last Admin: 12/08/17 03:51 Dose: 125 mls/hr Infusion: 12/07/17 23:39 Dose: 125 mls/hr Admin: 12/07/17 15:39 Dose: 125 mls/hr Infusion: 12/07/17 15:15 Dose: 125 mls/hr Admin: 12/07/17 07:15 Dose: 125 mls/hr Ibuprofen (Motrin) 600 mg PO Q6H PRN PRN Reason: Abdominal Pain Ketorolac Tromethamine (Toradol) 30 mg IVPUSH Q6H [facility] Stop: 12/12/17 10:46 Last Admin: 12/08/17 05:14 Dose: 30 mg Admin: 12/07/17 23:00 Dose: 30 mg Admin: 12/07/17 17:09 Dose: 30 mg Admin: 12/07/17 11:59 Dose: Metoclopramide HCl (Reglan) 10 mg IVPUSH Q8H [facility] Last Admin: 12/08/17 04:06 Dose: 10 mg Admin: 12/07/17 20:17 Dose: 10 mg Admin: 12/07/17 12:26 Dose: 10 mg Morphine Sulfate (Morphine) 4 mg IVPUSH Q2H PRN PRN Reason: Pain (severe 7-10) Last Admin: 12/07/17 10:54 Dose: 4 mg Ondansetron HCl (Zofran) 4 mg IVPUSH Q6H PRN PRN Reason: Nausea/Vomiting Oxycodone/Acetaminophen (Percocet 325-5 Mg) 1 tab PO Q4H PRN PRN Reason: Pain (moderate 4-6) Last Admin: 12/07/17 20:19 Dose: 1 tab Admin: 12/07/17 15:43 Dose: 1 tab Oxycodone/Acetaminophen (Percocet 325-5 Mg) 2 tab PO Q4H PRN PRN Reason: Pain (moderate 4-6) Last Admin: 12/08/17 06:39 Dose: 2 tab Admin: 12/08/17 00:07 Dose: 2 tab Promethazine HCl (Phenergan) 25 mg IM Q6H PRN PRN Reason: Nausea/Vomiting Sodium Chloride (Saline Flush) 10 ml FLUSH ASDIRECTED PRN PRN Reason: Keep Vein Open Sodium Chloride (Saline Flush) 2.5 ml FLUSH ASDIRECTED PRN PRN Reason: Keep Vein Open - Assessment Assessment (Free Text/Narrative):: 37 yo P0 s/p Abdominal myomectomy , tolerating regular diet , voiding and ambulating , POD 1 - Plan Plan (Free Text/Narrative):: Pain control as needed Am labs reviewed Lovenox 40mg Possible discharge tomorrow
[2017-12-08] MEDS: Enoxaparin 40 MG/0.4 ML Syringe SUBCUT SCH (09:18)
--- NOTE | 2017-12-08 10:51 | OR ---
SURGEON: LULA ARTHUR DATE OF PROCEDURE: 12/07/2017 PREOPERATIVE DIAGNOSES: Fibroid uterus and recurrent spontaneous . POSTOPERATIVE DIAGNOSES: Fibroid uterus and recurrent spontaneous . PROCEDURES: 1. Laparotomy. 2. Myomectomy. ANESTHESIA: General. ESTIMATED BLOOD LOSS: 20 mL. IV FLUIDS: 1200 mL. URINE OUTPUT: 150 mL clear fluid. SPECIMEN: One uterine fibroid. FINDINGS: On bimanual exam, the patient had an enlarged anterior uterus with anterior fibroid noted. The uterus was freely mobile.the patient had an anterior fibroid measuring about 4 cm. Both ovaries and tubes appeared normal. BRIEF HISTORY ABOUT THE PATIENT: She is a 37-year-old 15, para 0-0-15,0. She has history of recurrent SAB. The patient was seen complaining of infertility and severe pelvic pain. As a result of infertility and recurrent spontaneous ABs, the patient was referred to the Reproductive Endocrinology. Prior to referral, the patient had ultrasound done, which showed fibroid uterus measuring about 9 x 6 x 7 cm with an anterior fibroid measuring 4 x 4 x 4 cm , fibroid was noted to probably be impinging in the endometrium; however, the patient had hysteroscopy done which showed normal endometrium. RADHA recommended a myomectomy before starting fertility treatment. The patient was informed of the risks, benefits, and alternatives and agreed to proceed with the procedure. The patient signed the consent and she was allowed to ask the questions. PROCEDURE IN DETAIL: The patient was taken to the operating room, where general anesthesia was performed without difficulty. The patient was placed in the dorsal supine position with the Jose stirrups. The patient was prepared and also draped in the normal sterile fashion. The attention was paid to the perineum, speculum was placed in vagina to expose the cervix. the cervix was dilated then a catheter was placed into the uterine cavity. The catheter was attached to a syringe with methylene blue. After these, the attention was then paid to the abdomen. The Pfannenstiel skin incision was made with a scalpel and was carried down to the fascia with the Bovie. The fascia was incised and extended laterally, then the fascia was from the rectus muscles superiorly and also inferiorly. The rectus muscle was in the midline down to the level of the pubic symphysis. The preperitoneal fat tissue was opened and the peritoneum was entered with the aid of the hemostat. . The peritoneum was extended upward and laterally to expose the uterus. The Mustapha retractor was placed to help with retraction The bowel was packed with moist laparotomy sponges. The uterus was then elevated to the operative field. An anterior fibroid was noted. 20 units of vasopressin in 30 normal saline was injected, 10 mL of the solution was injected to the fibroid. A vertical incision was made on anterior myometrium overlaying the fibroid. The towel clip was used to grasp the fibroid. The fibroid was then from the myometrium with gentle traction and also the dissection with the Metzenbaum scissors and also the Bovie. With complete removal of the fibroid, the cavity was then closed in 2 layers with 0 Vicryl. the serosa were closed with 3-0 Vicryl stitch in a baseball stitch fashion. The Interceed was placed on top of the incision to reduce adhesions. The abdomen was irrigated prior to the Interceed being placed. The uterus was then placed back into the pelvis. The peritoneum was closed with 2-0 Vicryl. The rectus muscle was then closed with two mattress sutures. The fascia was closed with 0 Vicryl and subcutaneous fat was closed with plain gut. The skin incision was closed with 4-0 Monocryl on a Boogie needle. A Dermabond was used to secure the incision. Then, the catheter was removed from the uterus. All instrument and pad counts were correct x2. The patient was taken to the recovery room in stable condition. YURI LOU /[id number] SOURAV
[2017-12-09] MEDS: Acetaminophen/oxyCODONE 325-5 MG Tab PO PRN ×2 (01:18→08:26)
[2017-12-09] MEDS: Metoclopramide 10 MG/2 ML SDV IVPUSH SCH (03:00)
--- NOTE | 2017-12-09 08:43 | PCM.SURGPN ---
- General Info Date of Service: 12/09/17 Date of Surgery/Procedure: 12/07/17 POD#: 2 Post-Op Diagnosis: s/p Abdominal myomectomy Functional Status: Reports: Pain Controlled, Tolerating Diet, Ambulating, Urinating - Review of Systems General: Reports: No Symptoms HEENT: Reports: No Symptoms Pulmonary: Reports: No Symptoms Cardiovascular: Reports: No Symptoms Gastrointestinal: Reports: No Symptoms Genitourinary: Reports: No Symptoms Musculoskeletal: Reports: No Symptoms Skin: Reports: No Symptoms Neurological: Reports: No Symptoms Psychiatric: Reports: No Symptoms - Patient Data Vitals - Most Recent: Last Vital Signs Temp 36.2 C 12/09/17 03:55 Pulse 57 L 12/09/17 03:55 Resp 20 12/09/17 03:55 BP 94/52 L 12/09/17 03:55 Pulse Ox 97 12/09/17 03:55 Weight - Most Recent: 77.564 kg Med Orders - Current: Current Medications Enoxaparin Sodium (Lovenox) 40 mg SUBCUT Q24H [facility] Last Admin: 12/08/17 09:18 Dose: 40 mg Lactated Ringer's (Ringers, Lactated) 1,000 mls @ 125 mls/hr IV ASDIRECTED [facility] Last Admin: 12/08/17 03:51 Dose: 125 mls/hr Ibuprofen (Motrin) 600 mg PO Q6H PRN PRN Reason: Abdominal Pain Last Admin: 12/09/17 06:30 Dose: 600 mg Metoclopramide HCl (Reglan) 10 mg IVPUSH Q8H [facility] Last Admin: 12/09/17 03:00 Dose: Not Given Morphine Sulfate (Morphine) 4 mg IVPUSH Q2H PRN PRN Reason: Pain (severe 7-10) Last Admin: 12/07/17 10:54 Dose: 4 mg Ondansetron HCl (Zofran) 4 mg IVPUSH Q6H PRN PRN Reason: Nausea/Vomiting Oxycodone/Acetaminophen (Percocet 325-5 Mg) 1 tab PO Q4H PRN PRN Reason: Pain (moderate 4-6) Last Admin: 12/08/17 13:57 Dose: 1 tab Oxycodone/Acetaminophen (Percocet 325-5 Mg) 2 tab PO Q4H PRN PRN Reason: Pain (moderate 4-6) Last Admin: 12/09/17 08:26 Dose: 2 tab Promethazine HCl (Phenergan) 25 mg IM Q6H PRN PRN Reason: Nausea/Vomiting Sodium Chloride (Saline Flush) 10 ml FLUSH ASDIRECTED PRN PRN Reason: Keep Vein Open Sodium Chloride (Saline Flush) 2.5 ml FLUSH ASDIRECTED PRN PRN Reason: Keep Vein Open Discontinued Medications Bupivacaine HCl (Sensorcaine-Mpf 0.25%) Confirm Administered Dose 20 ml .ROUTE .STK-MED ONE Stop: 12/07/17 07:29 Bupivacaine HCl (Marcaine 0.5%) Confirm Administered Dose 30 ml .ROUTE .STK-MED ONE Stop: 12/07/17 07:29 Cefazolin Sodium (Ancef) 1 gm IM ONETIME ONE Stop: 12/07/17 08:01 Last Admin: 12/07/17 12:11 Dose: Not Given Cefazolin Sodium (Ancef) Confirm Administered Dose 1 gm .ROUTE .STK-MED ONE Stop: 12/07/17 07:55 Fentanyl (Sublimaze) Confirm Administered Dose 100 mcg .ROUTE .STK-MED ONE Stop: 12/07/17 07:17 Fentanyl (Sublimaze) Confirm Administered Dose 250 mcg .ROUTE .STK-MED ONE Stop: 12/07/17 07:18 Fentanyl (Sublimaze) Confirm Administered Dose 100 mcg .ROUTE .STK-MED ONE Stop: 12/07/17 09:37 Fentanyl (Sublimaze) 50 mcg IVPUSH Q5M PRN PRN Reason: Pain (severe 7-10) Stop: 12/08/17 11:10 Last Admin: 12/07/17 11:16 Dose: 50 mcg Fentanyl (Sublimaze) Confirm Administered Dose 100 mcg .ROUTE .STK-MED ONE Stop: 12/07/17 11:13 Last Admin: 12/07/17 12:17 Dose: Not Given Glycopyrrolate (Robinul) Confirm Administered Dose 0.2 mg .ROUTE .STK-MED ONE Stop: 12/07/17 07:17 Glycopyrrolate (Robinul) Confirm Administered Dose 0.6 mg .ROUTE .STK-MED ONE Stop: 12/07/17 08:26 Sodium Chloride (Normal Saline) Confirm Administered Dose 20 mls @ as directed .ROUTE .STK-MED ONE Stop: 12/07/17 07:55 Ketorolac Tromethamine (Toradol) Confirm Administered Dose 30 mg .ROUTE .STK- MED ONE Stop: 12/07/17 07:17 Ketorolac Tromethamine (Toradol) 30 mg IVPUSH ONETIME ONE Stop: 12/07/17 10:40 Last Admin: 12/07/17 12:19 Dose: Not Given Ketorolac Tromethamine (Toradol) 30 mg IVPUSH Q6H [place] Stop: 12/12/17 10:46 Last Admin: 12/08/17 11:38 Dose: 30 mg Lidocaine (Xylocaine-Mpf 2%) Confirm Administered Dose 5 ml .ROUTE .STK-MED ONE Stop: 12/07/17 07:17 Methylene Blue (Provayblue) Confirm Administered Dose 50 mg .ROUTE .STK-MED ONE Stop: 12/07/17 07:52 Midazolam HCl (Versed 1 Mg/Ml) Confirm Administered Dose 2 mg .ROUTE .ST-MED ONE Stop: 12/07/17 07:17 Neostigmine Methylsulfate (Neostigmine) Confirm Administered Dose 5 mg .ROUTE .ST-MED ONE Stop: 12/07/17 08:26 Octyl Cyanoacrylate (Dermabond Advance) Confirm Administered Dose 1 applic .ROUTE .ST-MED ONE Stop: 12/07/17 07:29 Ondansetron HCl (Zofran) Confirm Administered Dose 4 mg .ROUTE .ST-MED ONE Stop: 12/07/17 07:17 Oxytocin (Pitocin) Confirm Administered Dose 20 unit .ROUTE .ST-MED ONE Stop: 12/07/17 07:54 Phenylephrine HCl (Phenylephrine In Ns 100 Mcg/Ml) Confirm Administered Dose 1 mg .ROUTE .STK-MED ONE Stop: 12/07/17 08:26 Propofol (Diprivan 20 Ml) Confirm Administered Dose 200 mg .ROUTE .ST-MED ONE Stop: 12/07/17 07:23 Rocuronium [place] (Zemuron) Confirm Administered Dose 100 mg .ROUTE .STK-MED ONE Stop: 12/07/17 07:17 Vasopressin (Vasopressin) Confirm Administered Dose 20 units .ROUTE .[facility]-MED ONE Stop: 12/07/17 08:04 - Exam Wound/Incisions: Other (Pfannestiel skin incision c/d/i ) General: Alert HEENT: Pupils Equal Lungs: Clear to Auscultation Cardiovascular: Regular Rate, Regular Rhythm GI/Abdominal Exam: Normal Bowel Sounds Extremities: Normal Inspection Skin: Warm Neurological: No New Focal Deficit Psy/Mental Status: Alert - Problem List & Annotations (1) S/P myomectomy SNOMED Code(s): 600435723, 608994233 Code(s): Z98.890 - OTHER SPECIFIED POSTPROCEDURAL STATES Status: Acute Current Visit: Yes - Problem List Review Problem List Initiated/Reviewed/Updated: Yes - My Orders Last 24 Hours: Active Orders 24 hr Category Date Time Status Regular Diet [DIET] Diet 12/09/17 Breakfast Active Enoxaparin [Lovenox] Med 12/08/17 09:00 Active 40 mg SUBCUT Q24H Ibuprofen [Motrin] Med 12/08/17 08:46 Active 600 mg PO Q6H PRN Medication Orders Enoxaparin Sodium (Lovenox) 40 mg SUBCUT Q24H [facility] Last Admin: 12/08/17 09:18 Dose: 40 mg Lactated Ringer's (Ringers, Lactated) 1,000 mls @ 125 mls/hr IV ASDIRECTED [facility] Last Admin: 12/08/17 03:51 Dose: 125 mls/hr Infusion: 12/07/17 23:39 Dose: 125 mls/hr Admin: 12/07/17 15:39 Dose: 125 mls/hr Infusion: 12/07/17 15:15 Dose: 125 mls/hr Admin: 12/07/17 07:15 Dose: 125 mls/hr Ibuprofen (Motrin) 600 mg PO Q6H PRN PRN Reason: Abdominal Pain Last Admin: 12/09/17 06:30 Dose: 600 mg Metoclopramide HCl (Reglan) 10 mg IVPUSH Q8H [facility] Last Admin: 12/09/17 03:00 Dose: Admin: 12/08/17 19:34 Dose: 10 mg Admin: 12/08/17 12:41 Dose: 10 mg Admin: 12/08/17 04:06 Dose: 10 mg Admin: 12/07/17 20:17 Dose: 10 mg Admin: 12/07/17 12:26 Dose: 10 mg Morphine Sulfate (Morphine) 4 mg IVPUSH Q2H PRN PRN Reason: Pain (severe 7-10) Last Admin: 12/07/17 10:54 Dose: 4 mg Ondansetron HCl (Zofran) 4 mg IVPUSH Q6H PRN PRN Reason: Nausea/Vomiting Oxycodone/Acetaminophen (Percocet 325-5 Mg) 1 tab PO Q4H PRN PRN Reason: Pain (moderate 4-6) Last Admin: 12/08/17 13:57 Dose: 1 tab Admin: 12/07/17 20:19 Dose: 1 tab Admin: 12/07/17 15:43 Dose: 1 tab Oxycodone/Acetaminophen (Percocet 325-5 Mg) 2 tab PO Q4H PRN PRN Reason: Pain (moderate 4-6) Last Admin: 12/09/17 08:26 Dose: 2 tab Admin: 12/09/17 01:18 Dose: 2 tab Admin: 12/08/17 19:31 Dose: 2 tab Admin: 12/08/17 06:39 Dose: 2 tab Admin: 12/08/17 00:07 Dose: 2 tab Promethazine HCl (Phenergan) 25 mg IM Q6H PRN PRN Reason: Nausea/Vomiting Sodium Chloride (Saline Flush) 10 ml FLUSH ASDIRECTED PRN PRN Reason: Keep Vein Open Sodium Chloride (Saline Flush) 2.5 ml FLUSH ASDIRECTED PRN PRN Reason: Keep Vein Open - Assessment Assessment (Free Text/Narrative):: 37yo P0 s/p abdominal myomectomy stable - Plan Plan (Free Text/Narrative):: Discharge home today
[2017-12-09] MEDS: Enoxaparin 40 MG/0.4 ML Syringe SUBCUT SCH (08:47)
--- NOTE | 2017-12-09 08:48 | PCM.DCSUM1 ---
Discharge Summary - Hospital Course Free Text/Narrative:: 37 yo s/p abdominal myomectomy for pelvic pain and recurrent sab , she is ambulating voiding and tolerating regular diet. Diagnosis: Stroke: No - Discharge Data Discharge Date: 12/09/17 Discharge Disposition: Home, Self-Care 01 Condition: Good - Discharge Diagnosis/Problem(s) (1) S/P myomectomy SNOMED Code(s): 662338990, [id number] ICD Code: Z98.890 - OTHER SPECIFIED POSTPROCEDURAL STATES Status: Acute Current Visit: Yes - Patient Summary/Data Operative Procedure(s) Performed: Abdominal myomectomy - Patient Instructions Diet: Usual Diet as Tolerated Activity: No Lifting Over 20 Pounds Driving: Do Not Drive Showering/Bathing: May Shower Wound/Incision Care: Keep Operative Site/Wound Site Clean and Dry Notify Provider of: Fever, Increased Pain, Swelling and Redness - Discharge Plan Home Medications: Home Meds Aspirin/Acetaminophen/Caffeine [Eql Migraine Formula Caplet] 2 tab PO Q6H PRN [History] FLUoxetine HCl [Prozac] 20 mg PO QAM 09/09/17 [History] LORazepam 1 mg PO TID PRN 09/09/17 [History] SUMAtriptan [Imitrex] 50 mg PO ASDIRECTED PRN 09/09/17 [History] tiZANidine [Zanaflex] 4 mg PO BEDTIME 09/09/17 [History] Referrals: [facility] [Outside] Peter Sandoval MD [Physician] - (2 week- December 22 @ 3:30 w/ 4 week- January 06 @ 1:00pm W/ ) - Discharge Summary/Plan Comment Discharge Summary/Plan Comment: Pain control with percocet and motrin Call [facility] if heavy vaginal bleeding or fever Nothing in the vagina for 6 weeks Will need contraception for next 6 months - Patient Data Vitals - Most Recent: Last Vital Signs Temp 36.2 C 12/09/17 03:55 Pulse 57 L 12/09/17 03:55 Resp 20 12/09/17 03:55 BP 94/52 L 12/09/17 03:55 Pulse Ox 97 12/09/17 03:55 Weight - Most Recent: 77.564 kg Med Orders - Current: Current Medications Enoxaparin Sodium (Lovenox) 40 mg SUBCUT Q24H [facility] Last Admin: 12/08/17 09:18 Dose: 40 mg Lactated Ringer's (Ringers, Lactated) 1,000 mls @ 125 mls/hr IV ASDIRECTED [facility] Last Admin: 12/08/17 03:51 Dose: 125 mls/hr Ibuprofen (Motrin) 600 mg PO Q6H PRN PRN Reason: Abdominal Pain Last Admin: 12/09/17 06:30 Dose: 600 mg Metoclopramide HCl (Reglan) 10 mg IVPUSH Q8H [facility] Last Admin: 12/09/17 03:00 Dose: Not Given Morphine Sulfate (Morphine) 4 mg IVPUSH Q2H PRN PRN Reason: Pain (severe 7-10) Last Admin: 12/07/17 10:54 Dose: 4 mg Ondansetron HCl (Zofran) 4 mg IVPUSH Q6H PRN PRN Reason: Nausea/Vomiting Oxycodone/Acetaminophen (Percocet 325-5 Mg) 1 tab PO Q4H PRN PRN Reason: Pain (moderate 4-6) Last Admin: 12/08/17 13:57 Dose: 1 tab Oxycodone/Acetaminophen (Percocet 325-5 Mg) 2 tab PO Q4H PRN PRN Reason: Pain (moderate 4-6) Last Admin: 12/09/17 08:26 Dose: 2 tab Promethazine HCl (Phenergan) 25 mg IM Q6H PRN PRN Reason: Nausea/Vomiting Sodium Chloride (Saline Flush) 10 ml FLUSH ASDIRECTED PRN PRN Reason: Keep Vein Open Sodium Chloride (Saline Flush) 2.5 ml FLUSH ASDIRECTED PRN PRN Reason: Keep Vein Open Discontinued Medications Bupivacaine HCl (Sensorcaine-Mpf 0.25%) Confirm Administered Dose 20 ml .ROUTE .STK-MED ONE Stop: 12/07/17 07:29 Bupivacaine HCl (Marcaine 0.5%) Confirm Administered Dose 30 ml .ROUTE .STK-MED ONE Stop: 12/07/17 07:29 Cefazolin Sodium (Ancef) 1 gm IM ONETIME ONE Stop: 12/07/17 08:01 Last Admin: 12/07/17 12:11 Dose: Not Given Cefazolin Sodium (Ancef) Confirm Administered Dose 1 gm .ROUTE .STK-MED ONE Stop: 12/07/17 07:55 Fentanyl (Sublimaze) Confirm Administered Dose 100 mcg .ROUTE .STK-MED ONE Stop: 12/07/17 07:17 Fentanyl (Sublimaze) Confirm Administered Dose 250 mcg .ROUTE .STK-MED ONE Stop: 12/07/17 07:18 Fentanyl (Sublimaze) Confirm Administered Dose 100 mcg .ROUTE .STK-MED ONE Stop: 12/07/17 09:37 Fentanyl (Sublimaze) 50 mcg IVPUSH Q5M PRN PRN Reason: Pain (severe 7-10) Stop: 12/08/17 11:10 Last Admin: 12/07/17 11:16 Dose: 50 mcg Fentanyl (Sublimaze) Confirm Administered Dose 100 mcg .ROUTE .STK-MED ONE Stop: 12/07/17 11:13 Last Admin: 12/07/17 12:17 Dose: Not Given Glycopyrrolate (Robinul) Confirm Administered Dose 0.2 mg .ROUTE .STK-MED ONE Stop: 12/07/17 07:17 Glycopyrrolate (Robinul) Confirm Administered Dose 0.6 mg .ROUTE .STK-MED ONE Stop: 12/07/17 08:26 Sodium Chloride (Normal Saline) Confirm Administered Dose 20 mls @ as directed .ROUTE .STK-MED ONE Stop: 12/07/17 07:55 Ketorolac Tromethamine (Toradol) Confirm Administered Dose 30 mg .ROUTE .STK- MED ONE Stop: 12/07/17 07:17 Ketorolac Tromethamine (Toradol) 30 mg IVPUSH ONETIME ONE Stop: 12/07/17 10:40 Last Admin: 12/07/17 12:19 Dose: Not Given Ketorolac Tromethamine (Toradol) 30 mg IVPUSH Q6H [facility] Stop: 12/12/17 10:46 Last Admin: 12/08/17 11:38 Dose: 30 mg Lidocaine (Xylocaine-Mpf 2%) Confirm Administered Dose 5 ml .ROUTE .STK-MED ONE Stop: 12/07/17 07:17 Methylene Blue (Provayblue) Confirm Administered Dose 50 mg .ROUTE .STK-MED ONE Stop: 12/07/17 07:52 Midazolam HCl (Versed 1 Mg/Ml) Confirm Administered Dose 2 mg .ROUTE .STK-MED ONE Stop: 12/07/17 07:17 Neostigmine Methylsulfate (Neostigmine) Confirm Administered Dose 5 mg .ROUTE .STK-MED ONE Stop: 12/07/17 08:26 Octyl Cyanoacrylate (Dermabond Advance) Confirm Administered Dose 1 applic .ROUTE .STK-MED ONE Stop: 12/07/17 07:29 Ondansetron HCl (Zofran) Confirm Administered Dose 4 mg .ROUTE .STK-MED ONE Stop: 12/07/17 07:17 Oxytocin (Pitocin) Confirm Administered Dose 20 unit .ROUTE .[facility]-MED ONE Stop: 12/07/17 07:54 Phenylephrine HCl (Phenylephrine In Ns 100 Mcg/Ml) Confirm Administered Dose 1 mg .ROUTE .STK-MED ONE Stop: 12/07/17 08:26 Propofol (Diprivan 20 Ml) Confirm Administered Dose 200 mg .ROUTE .ST-MED ONE Stop: 12/07/17 07:23 Rocuronium [place] (Zemuron) Confirm Administered Dose 100 mg .ROUTE .STK-MED ONE Stop: 12/07/17 07:17 Vasopressin (Vasopressin) Confirm Administered Dose 20 units .ROUTE .ST-MED ONE Stop: 12/07/17 08:04 *Q Meaningful Use (DIS) - VTE *Q VTE Criteria *Q: none - Stroke *Q Stroke Criteria *Q: none
[2017-12-09 13:17] VITALS: BP 104/61
== END 2017-12-09 10:30 | disposition home or self-care (01) ==
LOC: MW.SDS 06:45 → MW.OB 10:39 → MW.SDS 10:39 → MW.OB 11:59
PROVIDERS: ADMIT Obstetrics & Gynecology; ATTEND Obstetrics & Gynecology
PROC: 0UB90ZZ Excision of Uterus, Open Approach (ICD-10-PCS; principal; 2017-12-07)
DX: D25.9 Leiomyoma of uterus, unspecified (principal); F41.9 Anxiety disorder, unspecified; Z87.891 Personal history of nicotine dependence; N96 Recurrent pregnancy loss; R10.2 Pelvic and perineal pain
CPT/HCPCS: 36415; 58140; 80048; 84703; 85025; 85027; 86850; 86900; 86901; 86920; 86921; 86922; 88305; A9270; C1765; J0690; J1650; J1885; J2250; J2270; J2405; J2590; J2765; J3010; J7120; 00840; J2704

== ENCOUNTER 2020-03-06 10:47 | Emergency (ER) | payer OTHER ==
[2020-03-06] MEDS ORDERED: Benzocaine 20% Topical Spray UD MUCMEM ONE (10:49)
[2020-03-06] MEDS ORDERED: Lidocaine 2% Viscous Solution 15 ML Cup PO ONE (10:49)
--- NOTE | 2020-03-06 10:49 | EDM.PDOC ---
ED HPI GENERAL MEDICAL PROBLEM - General Chief Complaint: ENT Problem Stated Complaint: TOOTH ACHE Time Seen by Provider: 03/06/20 10:48 Source of Information: Reports: Patient History Limitations: Reports: No Limitations - History of Present Illness INITIAL COMMENTS - FREE TEXT/NARRATIVE: HISTORY AND PHYSICAL: History of present illness: Patient is a 39-year-old female who presents to the emergency room with complaints of left upper dental pain over the past 3 to 4 days. She states she has called multiple places to get into a dentist but is unable to be seen until Thursday. She does have multiple missing teeth to the posterior molars but has had increased tenderness and noticed some redness to the concerned site. She offers no systemic complaints Review of systems: As per history of present illness and below otherwise all systems reviewed and negative. Past medical history: As per history of present illness and as reviewed below otherwise noncontributory. Surgical history: As per history of present illness and as reviewed below otherwise noncontributory. Social history: See social history for further information Family history: As per history of present illness and as reviewed below otherwise noncontributory. Physical exam: General: Well developed and well nourished. Alert and orientated x 3. Nontoxic in appearance and in no acute distress. Vital signs are stable and have been reviewed by me. Nursing notes were reviewed. HEENT: Atraumatic, normocephalic, pupils equal and reactive bilaterally, negative for conjunctival pallor or scleral icterus, mucous membranes moist, left posterior molar site has erythema to the gumline. TMs normal bilaterally, throat clear, neck supple, nontender, trachea midline. No drooling or trismus noted. No meningeal signs. No hot potato voice noted. Lungs: Clear to auscultation, breath sounds equal bilaterally. Normal work of breathing, no accessory muscles used. Heart: S1S2, regular rate and rhythm without overt murmur Skin: Intact, warm, dry. No lesions or rashes noted. Hematologic: No petechiae or purpra. Mucosa appropriate color and normal nail bed color and refill. Extremities: Atraumatic, moves all extremities per self without difficulty or deficits. Neurovascular unremarkable. Neuro: Awake, alert, oriented. Cranial nerves II through XII unremarkable. Cerebellum unremarkable. Motor and sensory unremarkable throughout. Exam nonfocal. Notes: I have spoken with the patient/caregiver and discussed today's findings, in addition to providing specific details for plan of care. Reassessment at the time of disposition demonstrates that the patient is in no acute distress. The patient is stable for discharge, counseling was provided and we discussed in great detail signs and symptoms that would prompt them to return to the Emergency Department. Medication, follow up and supportive care measures were reviewed and discussed. Voices understanding and is agreeable to plan of care. Denies any further questions or concerns at this time. Diagnostics: None Therapeutics: Dental balls, Toradol Prescription: Diclofenac, Pen-Vee K Impression: Dental abscess Plan: 1. Please take the antibiotic as prescribed. 2. Tylenol and/or ibuprofen as needed for pain management. "Tooth Balls" have been given to you; apply along the gumline every 2-3 hours as needed. Do not swallow these; external use only. 3. Follow-up with a dentist for definitive care. If your symptoms should worsen, new symptoms develop or any of the signs and symptoms we discussed should arise please return to the emergency room or call 911 (if needed). Definitive disposition and diagnosis as appropriate pending reevaluation and review of above. - Related Data Allergies Allergy/AdvReac Type Severity Reaction Status Date / Time No Known Allergies Allergy Verified 12/02/17 09:28 Home Meds: Home Meds Aspirin/Acetaminophen/Caffeine [Eql Migraine Formula Caplet] 2 tab PO Q6H PRN 09/09/17 [History] FLUoxetine HCl [Prozac] 20 mg PO QAM 09/09/17 [History] LORazepam 1 mg PO TID PRN 09/09/17 [History] SUMAtriptan [Imitrex] 50 mg PO ASDIRECTED PRN 09/09/17 [History] tiZANidine [Zanaflex] 4 mg PO BEDTIME 09/09/17 [History] Past Medical History HEENT 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: Other (See Below) Other HEENT History: wears glasses Cardiovascular 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: Other (See Below) Other Cardiovascular History: states had a murmur in her early teens Respiratory 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: None Gastrointestinal 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: None, Other (See Below) (h/o GERD) Genitourinary 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: None 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 x15 Musculoskeletal 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: None Neurological 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: Migraines Psychiatric 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: Anxiety, Depression, Panic Attack Endocrine/Metabolic 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: Obesity/BMI 30+ Hematologic 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: Other (See Below) (h/o anemia) Immunologic 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: None Oncologic (Cancer) 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: None Dermatologic 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: None - Infectious Disease History Infectious Disease 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: None - Past Surgical History Head Surgeries/Procedures: Reports: None HEENT Surgical 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: None Cardiovascular Surgical 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: None Respiratory Surgical 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: None GI Surgical 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: None Female Surgical 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: Other (See Below) Other Female Surgeries/Procedures: hysteroscopy Endocrine Surgical 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: None Musculoskeletal Surgical 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: None Social & Family History - Family History Family Medical History: Noncontributory ED ROS ENT - Review of Systems Review Of Systems: Comprehensive ROS is negative, except as noted in HPI. ED EXAM, ENT - Physical Exam Exam: See Below (See dictation) Course - Orders/Labs/Meds Meds: Medications Discontinued Medications Generic Name Dose Route Start Last Admin Trade Name Freq PRN Reason Stop Dose Admin Benzocaine 2 each 03/06/20 10:49 Hurricaine One 20% MUCMEM 03/06/20 10:50 ONETIME ONE Lidocaine HCl 15 ml 03/06/20 10:49 Xylocaine 2% Viscous PO 03/06/20 10:50 ONETIME ONE Departure - Departure Time of Disposition: 11:07 Disposition: Home, Self-Care 01 Clinical Impression: Dental abscess - Discharge Information Instructions: Dental Abscess, [id number] Forms: ED Department Discharge Additional Instructions: The following information is given to patients seen in the emergency department who are being discharged to home. This information is to outline your options for follow-up care. We provide all patients seen in our emergency department with a follow-up referral. The need for follow-up, as well as the timing and circumstances, are variable depending upon the specifics of your emergency department visit. If you don't have a primary care physician on staff, we will provide you with a referral. We always advise you to contact your personal physician following an emergency department visit to inform them of the circumstance of the visit and for follow-up with them and/or the need for any referrals to a consulting specialist. The emergency department will also refer you to a specialist when appropriate. This referral assures that you have the opportunity for follow-up care with a specialist. All of these measure are taken in an effort to provide you with optimal care, which includes your follow-up. Under all circumstances we always encourage you to contact your private physician who remains a resource for coordinating your care. When calling for follow-up care, please make the office aware that this follow-up is from your recent emergency room visit. If for any reason you are refused follow-up, please contact the [facility] Emergency Department at and asked to speak to the emergency department charge nurse. [facility] [address] [place] [id number] [facility] [address] [place] [id number] Thank you for choosing the [facility] emergency department in [place] for your medical needs today. It was a pleasure caring for you. Today you were seen in the emergency department for dental pain. 1. Please take the antibiotic as prescribed. 2. Tylenol and/or ibuprofen as needed for pain management. "Tooth Balls" have been given to you; apply along the gumline every 2-3 hours as needed. Do not swallow these; external use only. 3. Follow-up with a dentist for definitive care. If your symptoms should worsen, new symptoms develop or any of the signs and symptoms we discussed should arise please return to the emergency room or call [phone] (if needed).
[2020-03-06] MEDS ORDERED: Ketorolac 60 MG/2 ML SDV IM ONE (11:08)
[2020-03-06 18:33] VITALS: BP 124/71; PULSE 75
== END 2020-03-06 11:33 | disposition home or self-care (01) ==
LOC: MW.ED 10:47
DX: K04.7 Periapical abscess without sinus (principal); F32.9 Major depressive disorder, single episode, unspecified; F41.9 Anxiety disorder, unspecified; E66.9 Obesity, unspecified; Z68.27 Body mass index [BMI] 27.0-27.9, adult; Z79.899 Other long term (current) drug therapy
CPT/HCPCS: 96372; 99282; A9270; J1885

== ENCOUNTER 2020-10-05 21:13 | Emergency (ER) | payer BC, OTHER ==
--- NOTE | 2020-10-05 21:19 | EDM.PDOCBH ---
ED HPI GENERAL MEDICAL PROBLEM - General Chief Complaint: Behavioral/Psych Stated Complaint: MENTAL HEALTH EVAL, POSSIBLE DETOX Time Seen by Provider: 10/05/20 21:15 Source of Information: Reports: Patient History Limitations: Reports: No Limitations - History of Present Illness INITIAL COMMENTS - FREE TEXT/NARRATIVE: HISTORY AND PHYSICAL: History of present illness: Review of systems: As per history of present illness and below otherwise all systems reviewed and negative. Past medical history: As per history of present illness and as reviewed below otherwise noncontr ibutory. Surgical history: As per history of present illness and as reviewed below otherwise noncontributory. Social history: See social history for further information Family history: As per history of present illness and as reviewed below otherwise noncontributory. Physical exam: General: Well developed and well nourished. Alert and orientated x 3. Nontoxic in appearance and in no acute distress. Vital signs are stable and have been reviewed by me. Nursing notes were reviewed. HEENT: Atraumatic, normocephalic, pupils equal and reactive bilaterally, negative for conjunctival pallor or scleral icterus, mucous membranes moist, TMs normal bilaterally, throat clear, neck supple, nontender, trachea midline. No drooling or trismus noted. No meningeal signs. No hot potato voice noted. Lungs: Clear to auscultation bilaterally. No wheezes, rales, or rhonchi. Chest nontender. Normal work of breathing, no accessory muscles used. Heart: S1S2, regular rate and rhythm without overt murmur, gallops, or rubs. No JVD. No peripheral edema Abdomen: Soft, nondistended, nontender. Normoactive bowel sounds. Negative for masses or costovertebral tenderness. Pelvis: Stable nontender. Genitourinary/Rectal: Deferred. Skin: Intact, warm, dry. No lesions or rashes noted. Hematologic: No petechiae or purpra. Mucosa appropriate color and normal nail bed color and refill. Extremities: Atraumatic, moves all extremities per self without difficulty or deficits, negative for cords or calf pain. Neurovascular unremarkable. Neuro: Awake, alert, oriented. Cranial nerves II through XII unremarkable. Cerebellum unremarkable. Motor and sensory unremarkable throughout. Exam nonfocal. Psychiatric: Mood and affect are appropriate. Normal thought process. Answering questions appropriately. Notes: *This patient was seen and evaluated during the 2019 SARS-CoV-2 novel coronavirus pandemic period. Community viral transmission is ongoing at time of this encounter and the emergency department is operating under pandemic response procedures. I have talked with the patient about today's findings, in addition to providing specific details for plan of care. Reassessment at the time of disposition de monstrates that the patient is in no acute distress. The patient is stable for discharge, counseling was provided and we discussed in great detail signs and symptoms that would prompt them to return to the Emergency Department. Medication, follow up and supportive care measures were reviewed and discussed. Voices understanding and is agreeable to plan of care. Denies any further questions or concerns at this time. Diagnostics: Therapeutics: Prescription: Impression: Plan: 1. You were evaluated today on an emergent basis. Your 2. You can alternate Tylenol and ibuprofen as needed for pain and fever management. 3. We encourage you to follow up with your primary care provider and/or recommended specialist in the next few days for re-evaluation and further care/management. 4. If your symptoms should worsen, new symptoms develop or any of the signs and symptoms we discussed should arise please return to the emergency room or call 911 (if needed). Definitive disposition and diagnosis as appropriate pending reevaluation and review of above. - Related Data Allergies Allergy/AdvReac Type Severity Reaction Status Date / Time No Known Allergies Allergy Verified 03/06/20 11:22 Home Meds: Home Meds Aspirin/Acetaminophen/Caffeine [Eql Migraine Formula Caplet] 2 tab PO Q6H PRN 09/09/17 [History] FLUoxetine HCl [Prozac] 20 mg PO QAM 09/09/17 [History] LORazepam 1 mg PO TID PRN 09/09/17 [History] SUMAtriptan [Imitrex] 50 mg PO ASDIRECTED PRN 09/09/17 [History] tiZANidine [Zanaflex] 4 mg PO BEDTIME 09/09/17 [History] Diclofenac Sodium [Voltaren] 75 mg PO BIDMEALS PRN #20 tab.cr 03/06/20 [Rx] Penicillin V Potassium 500 mg PO Q8HR 7 Days #21 tab 03/06/20 [Rx] Past Medical History HEENT 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: Other (See Below) Other HEENT History: wears glasses Cardiovascular 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: Other (See Below) Other Cardiovascular History: states had a murmur in her early teens Respiratory 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: None Gastrointestinal 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: None, Other (See Below) Genitourinary 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: None 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 x15 Musculoskeletal 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: None Neurological 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: Migraines Psychiatric 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: Anxiety, Depression, Panic Attack Endocrine/Metabolic 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: Obesity/BMI 30+ Hematologic 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: Other (See Below) Immunologic 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: None Oncologic (Cancer) 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: None Dermatologic 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: None - Infectious Disease History Infectious Disease 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: None - Past Surgical History Head Surgeries/Procedures: Reports: None HEENT Surgical 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: None Cardiovascular Surgical 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: None Respiratory Surgical 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: None GI Surgical 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: None Female Surgical 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: Other (See Below) Other Female Surgeries/Procedures: hysteroscopy Endocrine Surgical 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: None Musculoskeletal Surgical 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: None Social & Family History - Family History Family Medical History: No Pertinent Family History - Caffeine Use Caffeine Use: Reports: None ED ROS GENERAL - Review of Systems Review Of Systems: Comprehensive ROS is negative, except as noted in HPI. ED EXAM, BEHAVIORAL HEALTH - Physical Exam Exam: See Below (See dictation) Departure - Discharge Information Referrals: PCP,Not In Area [Primary Care Provider] -
[2020-10-05 22:29] LABS: BLOOD UREA NITROGEN,BUN 11 mg/dL (7.0-18.0); CARBON DIOXIDE,CO2 22.8 mmol/L (21.0-32.0); CHLORIDE,CL 104 mmol/L (98-107); GLUCOSE RANDOM 119 mg/dL (74-106); POTASSIUM,K 3.5 mmol/L (3.5-5.1); SODIUM,NA 139 mmol/L (136-145)
--- NOTE | 2020-10-05 23:02 | EDM.PDOC ---
ED HPI GENERAL MEDICAL PROBLEM - General Chief Complaint: Behavioral/Psych Stated Complaint: MENTAL HEALTH EVAL, POSSIBLE DETOX Time Seen by Provider: 10/05/20 21:15 Source of Information: Reports: Patient History Limitations: Reports: No Limitations - History of Present Illness INITIAL COMMENTS - FREE TEXT/NARRATIVE: HISTORY AND PHYSICAL: History of present illness: This is a 40-year-old female with history significant for depression, anxiety, PTSD who had a distant history for admission for suicidal ideation approximately 7 years ago who presents ER today requesting assistance with detox from alcohol and benzodiazepines. Patient reports that she drinks daily approximately half a bottle of wine and has been requiring increased use of her Ativan. Patient denies any SI/HI. Patient has any auditory visual hallucinations. Patient has any recent fevers, shakes, chills, nausea, vomiting, diarrhea, dysuria, frequency, urgency. Patient reports that she had a 3 to 5 months of complete sobriety several years ago but has not had a prolonged period of sobriety since. Patient reports that she does feel safe at home. Patient reports yesterday that she caused self-harm to her right upper extremity but had no intention of suicidal ideation. Patient reports that she does have a history of being a cutter and she is been under a significant amount of stress recently. Patient reports that over the last several days she is utilize approximately 6 of her Ativan tablets and is concerned that she might of had an interaction with a combination of the benzodiazepines and alcohol. Patient does admit to occasional marijuana use. reports that 2 to 3 days ago they went out for dinner and ran into several friends who brought him shots and he believes that she was extremely intoxicated at that time and even the following day.\\ Patient denies any recent fevers, shakes, chills, nausea, vomiting, diarrhea, dysuria, frequency, urgency, chest pain, shortness of breath. Patient denies any history of hypertension, diabetes, liver, lung, kidney problems. Patient reports that she has had a history of a myomectomy and tummy tuck in the past. Patient has no known drug allergies. Review of systems: As per history of present illness and below otherwise all systems reviewed and negative. Past medical history: As per history of present illness and as reviewed below otherwise noncontributory. Surgical history: As per history of present illness and as reviewed below otherwise noncontributory. Social history: No reported history of drug or alcohol abuse. Family history: As per history of present illness and as reviewed below otherwise noncontributory. Physical exam: This patient was seen and evaluated during the 2019 SARS-CoV-2 novel coronavirus pandemic period. Community viral transmission is ongoing at time of this encounter and the emergency department is operating under pandemic response procedures. Constitutional: Patient is oriented to person, place, and time. Appears well- developed and well-nourished. No distress. HEENT: Moist mucous membranes Head: Normocephalic and atraumatic Eyes: Right eye exhibits no discharge. Left eye exhibits no discharge. No scleral icterus Neck: Normal range of motion. No tracheal deviation present. Cardiovascular: Normal rate and regular rhythm. Pulmonary: Effort normal, no respiratory distress. Abdominal: No distention Musculoskeletal: Normal range of motion Neurologic: Alert and oriented to person, place and time. Skin: [place], warm and dry. Psychiatric: Normal mood and affect. Behavior is normal. Judgment and thought content normal. Nursing note and vital signs have been reviewed Patient's ER physical exam is significant for well-developed well-appearing female who does not appear to be in any acute distress. Patient not exhibiting any signs or symptoms of be highly concerning for alcohol withdrawal. Patient has no resting tremor, no tachycardia. Patient does appear to be somewhat anxious and withdrawn in the ED. Diagnostics: CBC, CMP within normal limits. Alcohol level 0 Therapeutics: [] Assessment and plan: This is a 40-year-old female who presents ER today requesting assistance with resources for detox from alcohol/benzodiazepines. Patient is clinically and hemodynamically stable and has been medically cleared. We will discussed with [facility] to see if they can assist us with outpatient or inpatient services with her. Case has been discussed with [facility] and Hans is at bedside for evaluation. Reports that patient at this time is amenable and does meet criteria for CRU inpatient placement. Reassessment at the time of disposition demonstrates that the patient is in no acute distress. The patient has remained stable throughout the entire ED visit and is without objective evidence for acute process requiring urgent intervention or hospitalization. The patient is stable for discharge, counseling is provided as documented above, discussed symptomatic treatment and specific conditions for return. I have spoken with the patient/caregiver and discussed todays findings, in addition to providing specific details for the plan of care. Questions are answered and there is agreement with the plan. Definitive disposition and diagnosis as appropriate pending reevaluation and review of above. left ar Pain Score (Numeric/FACES): 9 - Related Data Allergies Allergy/AdvReac Type Severity Reaction Status Date / Time No Known Allergies Allergy Verified 03/06/20 11:22 Home Meds: Home Meds FLUoxetine HCl [Prozac] 40 mg PO QAM 09/09/17 [History] LORazepam 1 mg PO TID PRN 09/09/17 [History] SUMAtriptan [Imitrex] 50 mg PO ASDIRECTED PRN 09/09/17 [History] Topiramate [Topiramate ER] 150 mg PO DAILY 10/05/20 [History] busPIRone [Buspar] 10 mg PO TID 10/05/20 [History] Past Medical History HEENT 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: Other (See Below) Other HEENT History: wears glasses Cardiovascular 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: Other (See Below) Other Cardiovascular History: states had a murmur in her early teens Respiratory 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: None Gastrointestinal 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: None, Other (See Below) Genitourinary 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: None 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 Other LACEWORKER History: spontaneous AB x15 Musculoskeletal 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: None Neurological 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: Migraines Psychiatric 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: Anxiety, Depression, Panic Attack Endocrine/Metabolic 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: Obesity/BMI 30+ Hematologic 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: Other (See Below) Immunologic 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: None Oncologic (Cancer) 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: None Dermatologic 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: None - Infectious Disease History Infectious Disease 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: None - Past Surgical History Head Surgeries/Procedures: Reports: None HEENT Surgical 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: None Cardiovascular Surgical 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: None Respiratory Surgical 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: None GI Surgical 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: None Other GI Surgeries/Procedures: tumy tuck, Female Surgical 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: Other (See Below) Other Female Surgeries/Procedures: hysteroscopy Endocrine Surgical 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: None Musculoskeletal Surgical 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: None Social & Family History - Family History Family Medical History: No Pertinent Family History - Caffeine Use Caffeine Use: Reports: None - Recreational Drug Use Recreational Drug Use: No ED ROS GENERAL - Review of Systems Review Of Systems: See Below ED EXAM, GENERAL - Physical Exam Exam: See Below Free Text/Narrative:: HISTORY AND PHYSICAL: History of present illness: Review of systems: As per history of present illness and below otherwise all systems reviewed and negative. Past medical history: As per history of present illness and as reviewed below otherwise noncontributory. Surgical history: As per history of present illness and as reviewed below otherwise noncontributory. Social history: See social history for further information Family history: As per history of present illness and as reviewed below otherwise noncontributory. Physical exam: General: Well developed and well nourished. Alert and orientated x 3. Nontoxic in appearance and in no acute distress. Vital signs are stable and have been reviewed by me. Nursing notes were reviewed. HEENT: Atraumatic, normocephalic, pupils equal and reactive bilaterally, negative for conjunctival pallor or scleral icterus, mucous membranes moist, TMs normal bilaterally, throat clear, neck supple, nontender, trachea midline. No drooling or trismus noted. No meningeal signs. No hot potato voice noted. Lungs: Clear to auscultation bilaterally. No wheezes, rales, or rhonchi. Chest nontender. Normal work of breathing, no accessory muscles used. Heart: S1S2, regular rate and rhythm without overt murmur, gallops, or rubs. No JVD. No peripheral edema Abdomen: Soft, nondistended, nontender. Normoactive bowel sounds. Negative for masses or costovertebral tenderness. Pelvis: Stable nontender. Genitourinary/Rectal: Deferred. Skin: Intact, warm, dry. No lesions or rashes noted. Hematologic: No petechiae or purpra. Mucosa appropriate color and normal nail bed color and refill. Extremities: Atraumatic, moves all extremities per self without difficulty or deficits, negative for cords or calf pain. Neurovascular unremarkable. Neuro: Awake, alert, oriented. Cranial nerves II through XII unremarkable. Cerebellum unremarkable. Motor and sensory unremarkable throughout. Exam no nfocal. Psychiatric: Mood and affect are appropriate. Normal thought process. Answering questions appropriately. Notes: *This patient was seen and evaluated during the 2019 SARS-CoV-2 novel [facility] pandemic period. Community viral transmission is ongoing at time of this encounter and the emergency department is operating under pandemic response procedures. I have talked with the patient about today's findings, in addition to providing specific details for plan of care. Reassessment at the time of disposition demonstrates that the patient is in no acute distress. The patient is stable for discharge, counseling was provided and we discussed in great detail signs and symptoms that would prompt them to return to the Emergency Department. Medication, follow up and supportive care measures were reviewed and discussed. Voices understanding and is agreeable to plan of care. Denies any further questions or concerns at this time. Diagnostics: Therapeutics: Prescription: Impression: Plan: 1. You were evaluated today on an emergent basis. Your 2. You can alternate Tylenol and ibuprofen as needed for pain and fever management. 3. We encourage you to follow up with your primary care provider and/or recommended specialist in the next few days for re-evaluation and further care/management. 4. If your symptoms should worsen, new symptoms develop or any of the signs and symptoms we discussed should arise please return to the emergency room or call 911 (if needed). Definitive disposition and diagnosis as appropriate pending reevaluation and review of above. #1 Interpretation EKG Interpretation Comments: EKG: As interpreted by ER physician: Jl: Nonspecific ST-T wave abnormalities Normal axis No evidence of ST elevation AL Normal sinus rhythm heart rate of 68 Course - Vital Signs Last Recorded V/S: Last Vital Signs Temp 98 F 10/05/20 21:38 Pulse 96 10/05/20 21:38 Resp 16 10/05/20 21:38 BP 151/81 H 10/05/20 21:38 Pulse Ox 99 10/05/20 21:38 - Orders/Labs/Meds Orders: Active Orders 24 hr Category Date Time Status EKG Documentation Completion [RC] STAT Care 10/05/20 21:56 Active Labs: Laboratory Tests 10/05/20 10/05/20 10/05/20 Range/Units 22:04 22:04 22:31 WBC 12.02 H (4.0-11.0) K/uL RBC 4.34 (4.30-5.90) M/uL Hgb 13.2 (12.0-16.0) g/dL Hct 38.8 (36.0-46.0) % MCV 89.4 (80.0-98.0) fL MCH 30.4 (27.0-32.0) pg MCHC 34.0 (31.0-37.0) g/dL RDW Std Deviation 41.9 (28.0-62.0) fl RDW Coeff of [place] 13 (11.0-15.0) % Plt Count 332 (150-400) K/uL MPV 9.10 (7.40-12.00) fL Neut % (Auto) 65.0 (48.0-80.0) % Lymph % (Auto) 25.0 (16.0-40.0) % [place] % (Auto) 8.6 (0.0-15.0) % Eos % (Auto) 0.9 (0.0-7.0) % Baso % (Auto) 0.5 (0.0-1.5) % Neut # (Auto) 7.8 H (1.4-5.7) K/uL Lymph # (Auto) 3.0 H (0.6-2.4) K/uL [place] # (Auto) 1.0 H (0.0-0.8) K/uL Eos # (Auto) 0.1 (0.0-0.7) K/uL Baso # (Auto) 0.1 (0.0-0.1) K/uL Sodium 139 (136-145) mmol/L Potassium 3.5 (3.5-5.1) mmol/L Chloride 104 (98-107) mmol/L Carbon Dioxide 22.8 (21.0-32.0) mmol/L BUN 11 (7.0-18.0) mg/dL Creatinine 1.0 (0.6-1.0) mg/dL Est Cr Clr Drug Dosing 59.15 mL/min Estimated GFR (MDRD) > 60.0 ml/min Glucose 119 H (74-106) mg/dL Calcium 8.4 L (8.5-10.1) mg/dL Total Bilirubin 0.2 (0.2-1.0) mg/dL AST 31 (15-37) IU/L ALT 35 (14-63) IU/L Alkaline Phosphatase 70 (46-116) U/L Total Protein 7.8 (6.4-8.2) g/dL Albumin 3.7 (3.4-5.0) g/dL Globulin 4.1 H (2.6-4.0) g/dL Albumin/Globulin Ratio 0.9 (0.9-1.6) Urine Color RED Urine Appearance SLT CLOUDY Urine pH 7.0 (5.0-8.0) Ur Specific [place] 1.020 (1.001-1.035) Urine Protein 30 H (NEGATIVE) mg/dL Urine Glucose (UA) NEGATIVE (NEGATIVE) mg/dL Urine Ketones TRACE H (NEGATIVE) mg/dL Urine Occult Blood LARGE H (NEGATIVE) Urine Nitrite POSITIVE H (NEGATIVE) Urine Bilirubin NEGATIVE (NEGATIVE) Urine Urobilinogen 0.2 (<2.0) EU/dL Ur Leukocyte Esterase NEGATIVE (NEGATIVE) Urine RBC TOO NUMEROUS TO CT H (0-2/HPF) Urine WBC 1-3 (0-5/HPF) Ur Epithelial Cells FEW (NONE-FEW) Urine Bacteria FEW (NEGATIVE) Urine Opiates Screen (NEGATIVE) Ur Oxycodone Screen (NEGATIVE) Urine Methadone Screen (NEGATIVE) Ur Barbiturates Screen (NEGATIVE) Ur Phencyclidine Scrn (NEGATIVE) Ur Amphetamine Screen (NEGATIVE) U Methamphetamines Scrn (NEGATIVE) U Benzodiazepines Scrn (NEGATIVE) U Cocaine Metab Screen (NEGATIVE) U Marijuana (THC) Screen (NEGATIVE) Ethyl Alcohol < 3.0 mg/dL 10/05/20 Range/Units 22:31 WBC (4.0-11.0) K/uL RBC (4.30-5.90) M/uL Hgb (12.0-16.0) g/dL Hct (36.0-46.0) % MCV (80.0-98.0) fL MCH (27.0-32.0) pg MCHC (31.0-37.0) g/dL RDW Std Deviation (28.0-62.0) fl RDW Coeff of [place] (11.0-15.0) % Plt Count (150-400) K/uL MPV (7.40-12.00) fL Neut % (Auto) (48.0-80.0) % Lymph % (Auto) (16.0-40.0) % [place] % (Auto) (0.0-15.0) % Eos % (Auto) (0.0-7.0) % Baso % (Auto) (0.0-1.5) % Neut # (Auto) (1.4-5.7) K/uL Lymph # (Auto) (0.6-2.4) K/uL [place] # (Auto) (0.0-0.8) K/uL Eos # (Auto) (0.0-0.7) K/uL Baso # (Auto) (0.0-0.1) K/uL Sodium (136-145) mmol/L Potassium (3.5-5.1) mmol/L Chloride (98-107) mmol/L Carbon Dioxide (21.0-32.0) mmol/L BUN (7.0-18.0) mg/dL Creatinine (0.6-1.0) mg/dL Est Cr Clr Drug Dosing mL/min Estimated GFR (MDRD) ml/min Glucose (74-106) mg/dL Calcium (8.5-10.1) mg/dL Total Bilirubin (0.2-1.0) mg/dL AST (15-37) IU/L ALT (14-63) IU/L Alkaline Phosphatase (46-116) U/L Total Protein (6.4-8.2) g/dL Albumin (3.4-5.0) g/dL Globulin (2.6-4.0) g/dL Albumin/Globulin Ratio (0.9-1.6) Urine Color Urine Appearance Urine pH (5.0-8.0) Ur Specific [place] (1.001-1.035) Urine Protein (NEGATIVE) mg/dL Urine Glucose (UA) (NEGATIVE) mg/dL Urine Ketones (NEGATIVE) mg/dL Urine Occult Blood (NEGATIVE) Urine Nitrite (NEGATIVE) Urine Bilirubin (NEGATIVE) Urine Urobilinogen (<2.0) EU/dL Ur Leukocyte Esterase (NEGATIVE) Urine RBC (0-2/HPF) Urine WBC (0-5/HPF) Ur Epithelial Cells (NONE-FEW) Urine Bacteria (NEGATIVE) Urine Opiates Screen NEGATIVE (NEGATIVE) Ur Oxycodone Screen NEGATIVE (NEGATIVE) Urine Methadone Screen NEGATIVE (NEGATIVE) Ur Barbiturates Screen NEGATIVE (NEGATIVE) Ur Phencyclidine Scrn NEGATIVE (NEGATIVE) Ur Amphetamine Screen NEGATIVE (NEGATIVE) U Methamphetamines Scrn NEGATIVE (NEGATIVE) U Benzodiazepines Scrn NEGATIVE (NEGATIVE) U Cocaine Metab Screen NEGATIVE (NEGATIVE) U Marijuana (THC) Screen POSITIVE (NEGATIVE) Ethyl Alcohol mg/dL Departure - Departure Time of Disposition: 23:55 Disposition: DC/Tfer to Psych Hosp/Unit 65 Condition: Good Clinical Impression: Anxiety, Alcohol abuse, Mild benzodiazepine use disorder - Discharge Information Instructions: Alcohol Use Disorder Referrals: PCP,Not In Area [Primary Care Provider] - Forms: ED Department Discharge Additional Instructions: You were seen and evaluated in the ER today secondary to concerns of alcohol use disorder as well as benzodiazepine use disorder. At this time, you are not exhibiting any signs or symptoms of acute alcohol withdrawal syndrome. You have been evaluated by [facility] services and they will assist with placing him in a CRU for assistance with your alcohol and benzodiazepine use disorders. The following information is given to patients seen in the emergency department who are being discharged to home. This information is to outline your options for follow-up care. We provide all patients seen in our emergency department with a follow-up referral. The need for follow-up, as well as the timing and circumstances, are variable depending upon the specifics of your emergency department visit. If you don't have a primary care physician on staff, we will provide you with a referral. We always advise you to contact your personal physician following an emergency department visit to inform them of the circumstance of the visit and for follow-up with them and/or the need for any referrals to a consulting specialist. The emergency department will also refer you to a specialist when appropriate. This referral assures that you have the opportunity for follow-up care with a specialist. All of these measure are taken in an effort to provide you with optimal care, which includes your follow-up. Under all circumstances we always encourage you to contact your private physician who remains a resource for coordinating your care. When calling for follow-up care, please make the office aware that this follow-up is from your recent emergency room visit. If for any reason you are refused follow-up, please contact the [facility] Emergency Department at and asked to speak to the emergency department charge nurse. [facility] [address] [place] [id number] [address] Sepsis Event Note (ED) - Evaluation Sepsis Screening Result: No Definite Risk - Focused Exam Vital Signs: Vital Signs Temp Pulse Resp BP Pulse Ox 10/05/20 21:38 98 F 96 16 151/81 H 99 - My Orders Last 24 Hours: My Active Orders 10/05/20 21:56 EKG Documentation Completion [RC] STAT - Assessment/Plan Last 24 Hours: My Active Orders 10/05/20 21:56 EKG Documentation Completion [RC] STAT
[2020-10-06 00:37] VITALS: BP 161/90; PULSE 77
== END 2020-10-06 00:10 ==
LOC: MW.ED 21:13
DX: F41.9 Anxiety disorder, unspecified (principal); F10.10 Alcohol abuse, uncomplicated; F19.99 Other psychoactive substance use, unspecified with unspecified psychoactive substance-induced disorder; E66.9 Obesity, unspecified; Z68.27 Body mass index [BMI] 27.0-27.9, adult; Z79.899 Other long term (current) drug therapy
CPT/HCPCS: 36415; 80053; 80305-QW; 80307; 81001; 85025; 93005; 99284-25; 99285

== ENCOUNTER 2020-12-20 20:03 | Emergency (ER) | payer BC ==
--- NOTE | 2020-12-20 20:20 | EDM.PDOC ---
ED HPI GENERAL MEDICAL PROBLEM - General Chief Complaint: Drug or Alcohol Abuse Stated Complaint: EMS Time Seen by Provider: 12/20/20 20:07 Source of Information: Reports: Patient, EMS History Limitations: Reports: No Limitations - History of Present Illness INITIAL COMMENTS - FREE TEXT/NARRATIVE: HISTORY AND PHYSICAL: History of present illness: The patient is a 40-year-old female who presents via EMS after she was found unresponsive. EMS gave her Narcan which she responded to. The patient arrives to the emergency department alert and oriented. Patient states that she took 30 mg of oxycodone and had a glass of wine prior to passing out. The patient states that she has a chronic hip problem due to a Workmen's Comp. claim. She states that she has not been able to get any pain medication for months because of this claim. She states normally she purchases the medications from her friend and she only takes about a half or fourth of 1. Today was the first time she is taken a whole oxycodone tablet. Patient denies any fever, chills, headache, change in vision, syncope or near syncope. Denies any chest pain, back pain, shortness of breath or cough. Denies any abdominal pain, nausea, vomiting, diarrhea, constipation or dysuria. Has not noted any blood in urine or stool. Patient has been eating and drinking appropriately. Review of systems: As per history of present illness and below otherwise all systems reviewed and negative. Past medical history: As per history of present illness and as reviewed below otherwise noncontributory. Surgical history: As per history of present illness and as reviewed below otherwise noncontributory. Social history: See social history for further information Family history: As per history of present illness and as reviewed below otherwise noncontributory. Physical exam: General: Well developed and well nourished. Alert and orientated x 3. Nontoxic in appearance and in no acute distress. Vital signs are stable and have been reviewed by me. Nursing notes were reviewed. HEENT: Atraumatic, normocephalic, pupils equal and reactive bilaterally, negative for conjunctival pallor or scleral icterus, mucous membranes moist, TMs normal bilaterally, throat clear, neck supple, nontender, trachea midline. No drooling or trismus noted. No meningeal signs. No hot potato voice noted. Lungs: Clear to auscultation bilaterally. No wheezes, rales, or rhonchi. Chest nontender. Normal work of breathing, no accessory muscles used. Heart: S1S2, regular rate and rhythm without overt murmur, gallops, or rubs. No JVD. No peripheral edema Abdomen: Soft, nondistended, nontender. Normoactive bowel sounds. Negative for masses or costovertebral tenderness. Skin: Intact, warm, dry. No lesions or rashes noted. Hematologic: No petechiae or purpra. Mucosa appropriate color and normal nail bed color and refill. Extremities: Atraumatic, moves all extremities per self without difficulty or deficits, negative for cords or calf pain. Neurovascular unremarkable. Neuro: Awake, alert, oriented. Cranial nerves II through XII unremarkable. Cerebellum unremarkable. Motor and sensory unremarkable throughout. Exam nonfocal. Psychiatric: Mood and affect are appropriate. Normal thought process. Answering questions appropriately. Notes: *This patient was seen and evaluated during the 2019 SARS-CoV-2 novel coronavirus pandemic period. Community viral transmission is ongoing at time of this encounter and the emergency department is operating under pandemic response procedures. As stated above the patient is a 40-year-old female who presents to the emergency department after taking oxycodone 30 mg and requiring Narcan for revival. The patient is alert and oriented at this time. I have asked for her to be put on a CO2 monitor. Her vital signs are stable. She has her partner at the bedside. The patient states that she drinks 3 glasses of wine 3-4 times per week. She states that she only takes "something for pain" every couple of months. I have ordered blood work, urinalysis, and EKG on the patient. We will monitor the patient for at least 4-1/2 hours. The patient CBC is unremarkable. Her CMP remarkable for a potassium of 3.2, creatinine 1.1, glucose 177. She has a TSH of 7.13. I have ordered a free T4. With her glucose of 177 and she is spilling glucose in her urine I have ordered an glycohemoglobin A1c. The patient's A1c is 5.7 indicating a prediabetic condition. The patient was informed and educated on the need to follow-up and a healthy diet. The patient's free T4 is 0.84 along with her elevated TSH would indicate a subclinical hypothyroidism. The patient will need to follow-up with a primary care regarding this to. Patient was educated on this. The patient's blood pressure is still elevated at 116 so I will give her another liter of IV fluids. Report to Dr. Parsons. I have talked with the patient about today's findings, in addition to providing specific details for plan of care. Reassessment at the time of disposition demonstrates that the patient is in no acute distress. The patient is stable for discharge, counseling was provided and we discussed in great detail signs and symptoms that would prompt them to return to the Emergency Department. Medication, follow up and supportive care measures were reviewed and discussed. Voices understanding and is agreeable to plan of care. Denies any further questions or concerns at this time. Diagnostics: CBC, CMP, UA, drug screen, TSH, free T4, A1c, EKG Therapeutics: IV fluids, Zofran Impression: Overdose, subclinical hypothyroidism, prediabetic Plan: 1. You were evaluated today on an emergent basis. You were brought to the emergency department by the emergency medical services after becoming nonresponsive due to ingesting oxycodone 30 mg. You required Narcan for revival. You had blood work done. Your CBC was unremarkable your electrolytes showed your potassium was a little low at 3.2 and your glucose was high at 177. You are also spilling sugar and your urine. I did a test called a glycohemoglobin A1c to see if you are a diabetic. Your A1c is 5.7 indicating a prediabetic. You need to follow-up with the primary care and follow a healthy lifestyle. Your thyroid-stimulating hormone was 7.13 which is elevated. I ordered a free thyroid for hormone which was normal. This could indicate subclinical hypothyroidism. You would need to follow-up with your primary care provider for possible treatment. 2. You can alternate Tylenol and ibuprofen as needed for pain and fever management. 3. We encourage you to follow up with your primary care provider and/or recommended specialist in the next few days for re-evaluation and further care/management. 4. If your symptoms should worsen, new symptoms develop or any of the signs and symptoms we discussed should arise please return to the emergency room or call 911 (if needed). Definitive disposition and diagnosis as appropriate pending reevaluation and review of above. general Pain Score (Numeric/FACES): 10 - Related Data Allergies Allergy/AdvReac Type Severity Reaction Status Date / Time No Known Allergies Allergy Verified 12/20/20 20:18 Home Meds: Home Meds FLUoxetine HCl [Prozac] 40 mg PO QAM 09/09/17 [History] LORazepam 1 mg PO TID PRN 09/09/17 [History] SUMAtriptan [Imitrex] 50 mg PO ASDIRECTED PRN 09/09/17 [History] Topiramate [Topiramate ER] 150 mg PO DAILY 10/05/20 [History] busPIRone [Buspar] 10 mg PO TID 10/05/20 [History] Past Medical History HEENT 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: Other (See Below) Other HEENT History: wears glasses Cardiovascular 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: Other (See Below) Other Cardiovascular History: states had a murmur in her early teens Respiratory 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: None Gastrointestinal 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: None, Other (See Below) Genitourinary 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: None [employer]ENT[employer]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 Musculoskeletal 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: None Neurological 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: Migraines Psychiatric 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: Anxiety, Depression, Panic Attack Endocrine/Metabolic 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: Obesity/BMI 30+ Hematologic 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: Other (See Below) Immunologic 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: None Oncologic (Cancer) 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: None Dermatologic 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: None - Infectious Disease History Infectious Disease 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: None - Past Surgical History Head Surgeries/Procedures: Reports: None HEENT Surgical 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: None Cardiovascular Surgical 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: None Respiratory Surgical 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: None GI Surgical 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: None Other GI Surgeries/Procedures: tumy tuck, Female Surgical 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: Other (See Below) Other Female Surgeries/Procedures: hysteroscopy Endocrine Surgical 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: None Musculoskeletal Surgical 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: None Social & Family History - Family History Family Medical History: No Pertinent Family History - Caffeine Use Caffeine Use: Reports: None ED ROS GENERAL - Review of Systems Review Of Systems: Comprehensive ROS is negative, except as noted in HPI. - Physical Exam Exam: See Below (See dictation) Course - Vital Signs Last Recorded V/S: Last Vital Signs Temp 97.8 F 12/20/20 20:03 Pulse 115 H 12/20/20 22:04 Resp 14 12/20/20 22:04 BP 122/82 12/20/20 22:04 Pulse Ox 96 12/20/20 22:04 - Orders/Labs/Meds Orders: Active Orders 24 hr Category Date Time Status EKG Documentation Completion [RC] STAT Care 12/20/20 20:18 Active Sodium Chloride 0.9% [Normal Saline] 1,000 ml Med 12/20/20 22:15 Active IV .BOLUS Medication Orders Sodium Chloride (Normal Saline) 1,000 mls @ 999 mls/hr IV .BOLUS ONE Stop: 12/20/20 23:15 Last Admin: 12/20/20 22:18 Dose: 999 mls/hr Documented by: RAMAN Labs: Laboratory Tests 12/20/20 12/20/20 12/20/20 Range/Units 20:30 20:30 20:30 WBC 10.48 (4.0-11.0) K/uL RBC 4.16 L (4.30-5.90) M/uL Hgb 12.6 (12.0-16.0) g/dL Hct 37.3 (36.0-46.0) % MCV 89.7 (80.0-98.0) fL MCH 30.3 (27.0-32.0) pg MCHC 33.8 (31.0-37.0) g/dL RDW Std Deviation 42.6 (28.0-62.0) fl RDW Coeff of [place] 13 (11.0-15.0) % Plt Count 356 (150-400) K/uL MPV 9.20 (7.40-12.00) fL Neut % (Auto) 67.4 (48.0-80.0) % Lymph % (Auto) 25.4 (16.0-40.0) % [place] % (Auto) 5.6 (0.0-15.0) % Eos % (Auto) 1.4 (0.0-7.0) % Baso % (Auto) 0.2 (0.0-1.5) % Neut # (Auto) 7.1 H (1.4-5.7) K/uL Lymph # (Auto) 2.7 H (0.6-2.4) K/uL [place] # (Auto) 0.6 (0.0-0.8) K/uL Eos # (Auto) 0.2 (0.0-0.7) K/uL Baso # (Auto) 0.0 (0.0-0.1) K/uL Nucleated RBC % 0.0 /100WBC Nucleated RBCs # 0 K/uL Sodium 141 (136-145) mmol/L Potassium 3.2 L (3.5-5.1) mmol/L Chloride 107 (98-107) mmol/L Carbon Dioxide 21.2 (21.0-32.0) mmol/L BUN 11 (7.0-18.0) mg/dL Creatinine 1.1 H (0.6-1.0) mg/dL Est Cr Clr Drug Dosing TNP Estimated GFR (MDRD) 55.0 ml/min Glucose 177 H (74-106) mg/dL Hemoglobin A1c (4.5 - 6.2) % Calcium 7.7 L (8.5-10.1) mg/dL Magnesium 1.9 (1.8-2.4) mg/dL Total Bilirubin 0.1 L (0.2-1.0) mg/dL AST 18 (15-37) IU/L ALT 20 (14-63) IU/L Alkaline Phosphatase 78 (46-116) U/L Total Protein 6.8 (6.4-8.2) g/dL Albumin 3.2 L (3.4-5.0) g/dL Globulin 3.6 (2.6-4.0) g/dL Albumin/Globulin Ratio 0.9 (0.9-1.6) Free T4 (0.76-1.46) ng/dL TSH 3rd Generation 7.13 H (0.36-3.74) uIU/mL Urine Color YELLOW Urine Appearance SLT CLOUDY Urine pH 5.5 (5.0-8.0) Ur Specific [place] >= 1.030 (1.001-1.035) Urine Protein NEGATIVE (NEGATIVE) mg/dL Urine Glucose (UA) 100 H (NEGATIVE) mg/dL Urine Ketones NEGATIVE (NEGATIVE) mg/dL Urine Occult Blood LARGE H (NEGATIVE) Urine Nitrite NEGATIVE (NEGATIVE) Urine Bilirubin NEGATIVE (NEGATIVE) Urine Urobilinogen 0.2 (<2.0) EU/dL Ur Leukocyte Esterase NEGATIVE (NEGATIVE) U Hyaline Cast (Auto) 0-2 (0-2/LPF) Urine RBC 15-20 (0-2/HPF) Urine WBC 1-5 (0-5/HPF) Ur Epithelial Cells FEW (NONE-FEW) Urine Bacteria FEW (NEGATIVE) Urine Mucus LIGHT (NONE-MOD) Salicylates 1.2 (0-20) mg/dL Urine Opiates Screen (NEGATIVE) Ur Oxycodone Screen (NEGATIVE) Urine Methadone Screen (NEGATIVE) Acetaminophen <2.0 ug/mL Ur Barbiturates Screen (NEGATIVE) Ur Phencyclidine Scrn (NEGATIVE) Ur Amphetamine Screen (NEGATIVE) U Methamphetamines Scrn (NEGATIVE) U Benzodiazepines Scrn (NEGATIVE) U Cocaine Metab Screen (NEGATIVE) U Marijuana (THC) Screen (NEGATIVE) Ethyl Alcohol < 3.0 mg/dL 12/20/20 12/20/20 12/20/20 Range/Units 20:30 20:30 20:30 WBC (4.0-11.0) K/uL RBC (4.30-5.90) M/uL Hgb (12.0-16.0) g/dL Hct (36.0-46.0) % MCV (80.0-98.0) fL MCH (27.0-32.0) pg MCHC (31.0-37.0) g/dL RDW Std Deviation (28.0-62.0) fl RDW Coeff of [place] (11.0-15.0) % Plt Count (150-400) K/uL MPV (7.40-12.00) fL Neut % (Auto) (48.0-80.0) % Lymph % (Auto) (16.0-40.0) % [place] % (Auto) (0.0-15.0) % Eos % (Auto) (0.0-7.0) % Baso % (Auto) (0.0-1.5) % Neut # (Auto) (1.4-5.7) K/uL Lymph # (Auto) (0.6-2.4) K/uL [place] # (Auto) (0.0-0.8) K/uL Eos # (Auto) (0.0-0.7) K/uL Baso # (Auto) (0.0-0.1) K/uL Nucleated RBC % /100WBC Nucleated RBCs # K/uL Sodium (136-145) mmol/L Potassium (3.5-5.1) mmol/L Chloride (98-107) mmol/L Carbon Dioxide (21.0-32.0) mmol/L BUN (7.0-18.0) mg/dL Creatinine (0.6-1.0) mg/dL Est Cr Clr Drug Dosing Estimated GFR (MDRD) ml/min Glucose (74-106) mg/dL Hemoglobin A1c 5.7 (4.5 - 6.2) % Calcium (8.5-10.1) mg/dL Magnesium (1.8-2.4) mg/dL Total Bilirubin (0.2-1.0) mg/dL AST (15-37) IU/L ALT (14-63) IU/L Alkaline Phosphatase (46-116) U/L Total Protein (6.4-8.2) g/dL Albumin (3.4-5.0) g/dL Globulin (2.6-4.0) g/dL Albumin/Globulin Ratio (0.9-1.6) Free T4 0.84 (0.76-1.46) ng/dL TSH 3rd Generation (0.36-3.74) uIU/mL Urine Color Urine Appearance Urine pH (5.0-8.0) Ur Specific [place] (1.001-1.035) Urine Protein (NEGATIVE) mg/dL Urine Glucose (UA) (NEGATIVE) mg/dL Urine Ketones (NEGATIVE) mg/dL Urine Occult Blood (NEGATIVE) Urine Nitrite (NEGATIVE) Urine Bilirubin (NEGATIVE) Urine Urobilinogen (<2.0) EU/dL Ur Leukocyte Esterase (NEGATIVE) U Hyaline Cast (Auto) (0-2/LPF) Urine RBC (0-2/HPF) Urine WBC (0-5/HPF) Ur Epithelial Cells (NONE-FEW) Urine Bacteria (NEGATIVE) Urine Mucus (NONE-MOD) Salicylates (0-20) mg/dL Urine Opiates Screen NEGATIVE (NEGATIVE) Ur Oxycodone Screen NEGATIVE (NEGATIVE) Urine Methadone Screen NEGATIVE (NEGATIVE) Acetaminophen ug/mL Ur Barbiturates Screen NEGATIVE (NEGATIVE) Ur Phencyclidine Scrn NEGATIVE (NEGATIVE) Ur Amphetamine Screen NEGATIVE (NEGATIVE) U Methamphetamines Scrn NEGATIVE (NEGATIVE) U Benzodiazepines Scrn POSITIVE (NEGATIVE) U Cocaine Metab Screen NEGATIVE (NEGATIVE) U Marijuana (THC) Screen NEGATIVE (NEGATIVE) Ethyl Alcohol mg/dL Meds: Medications Generic Name Dose Route Start Last Admin Trade Name Freq PRN Reason Stop Dose Admin Sodium Chloride 1,000 mls @ 999 mls/hr 12/20/20 22:15 12/20/20 22:18 Normal Saline IV 12/20/20 23:15 999 mls/hr .BOLUS ONE Administration Discontinued Medications Generic Name Dose Route Start Last Admin Trade Name Gianna PRN Reason Stop Dose Admin Ondansetron HCl 4 mg 12/20/20 20:53 12/20/20 21:12 Ondansetron 4 Mg/2 Ml Sdv IVPUSH 12/20/20 20:54 4 mg ONETIME ONE Administration Departure - Departure Time of Disposition: 00:33 Disposition: Home, Self-Care 01 Condition: Good Clinical Impression: Prediabetes, Subclinical hypothyroidism Overdose Qualifiers: Encounter type: initial encounter Injury intent: accidental or unintentional Qualified Code(s): T50.901A - Poisoning by unspecified drugs, medicaments and biological substances, accidental (unintentional), initial encounter - Discharge Information *PRESCRIPTION DRUG MONITORING PROGRAM REVIEWED*: Not Applicable *COPY OF PRESCRIPTION DRUG MONITORING REPORT IN PATIENT JAGDISH: Not Applicable Instructions: Preventing Type 2 Diabetes Mellitus, Accidental Drug Poisoning, Adult, Prediabetes Eating Plan Referrals: PCP,None [Primary Care Provider] - Forms: ED Department Discharge Additional Instructions: The following information is given to patients seen in the emergency department who are being discharged to home. This information is to outline your options for follow-up care. We provide all patients seen in our emergency department with a follow-up referral. The need for follow-up, as well as the timing and circumstances, are variable depending upon the specifics of your emergency department visit. If you don't have a primary care physician on staff, we will provide you with a referral. We always advise you to contact your personal physician following an emergency department visit to inform them of the circumstance of the visit and for follow-up with them and/or the need for any referrals to a consulting specialist. The emergency department will also refer you to a specialist when appropriate. This referral assures that you have the opportunity for follow-up care with a specialist. All of these measure are taken in an effort to provide you with optimal care, which includes your follow-up. Under all circumstances we always encourage you to contact your private physician who remains a resource for coordinating your care. When calling for follow-up care, please make the office aware that this follow-up is from your recent emergency room visit. If for any reason you are refused follow-up, please contact the [facility] Emergency Department at and asked to speak to the emergency department charge nurse. [place] [facility] [address] [place] [address] [facility] [address] [place] [id number] Plan: 1. You were evaluated today on an emergent basis. You were brought to the emergency department by the emergency medical services after becoming nonresponsive due to ingesting oxycodone 30 mg. You required Narcan for revival. You had blood work done. Your CBC was unremarkable your electrolytes showed your potassium was a little low at 3.2 and your glucose was high at 177. You are also spilling sugar and your urine. I did a test called a glycohemoglobin A1c to see if you are a diabetic. Your A1c is 5.7 indicating a prediabetic. You need to follow-up with the primary care and follow a healthy lifestyle. Your thyroid-stimulating hormone was 7.13 which is elevated. I ordered a free thyroid for hormone which was normal. This could indicate subclinical hypothyroidism. You would need to follow-up with your primary care provider for possible treatment. 2. You can alternate Tylenol and ibuprofen as needed for pain and fever management. 3. We encourage you to follow up with your primary care provider and/or recommended specialist in the next few days for re-evaluation and further care/management. 4. If your symptoms should worsen, new symptoms develop or any of the signs and symptoms we discussed should arise please return to the emergency room or call 911 (if needed). Sepsis Event Note (ED) - Focused Exam Vital Signs: Vital Signs Temp Pulse Resp BP Pulse Ox 12/20/20 22:04 115 H 14 122/82 96 12/20/20 20:03 97.8 F 124 H 18 122/82 93 L - My Orders Last 24 Hours: My Active Orders 12/20/20 20:18 EKG Documentation Completion [RC] STAT 12/20/20 22:15 Sodium Chloride 0.9% [Normal Saline] 1,000 ml IV .BOLUS - Assessment/Plan Last 24 Hours: My Active Orders 12/20/20 20:18 EKG Documentation Completion [RC] STAT 12/20/20 22:15 Sodium Chloride 0.9% [Normal Saline] 1,000 ml IV .BOLUS
[2020-12-20] MEDS ORDERED: Ondansetron 4 MG/2 ML SDV IVPUSH ONE (20:53)
[2020-12-20 21:04] LABS: ACETAMINOPHEN <2.0 ug/mL; BLOOD UREA NITROGEN,BUN 11 mg/dL (7.0-18.0); CARBON DIOXIDE,CO2 21.2 mmol/L (21.0-32.0); CHLORIDE,CL 107 mmol/L (98-107); GLUCOSE RANDOM 177 mg/dL (74-106); POTASSIUM,K 3.2 mmol/L (3.5-5.1); SODIUM,NA 141 mmol/L (136-145)
[2020-12-20 21:54] LABS: HEMOGLOBIN A1C 5.7 %
[2020-12-20] MEDS ORDERED: Sodium Chloride 0.9% 1,000 ML IV ONE (22:15)
[2020-12-21 00:11] VITALS: BP 112/82; PULSE 87
--- NOTE | 2020-12-21 05:45 | PCM.EKG ---
#1 Interpretation EKG Date: 12/20/20 Time: 20:35 Rhythm: NSR Rate (Beats/Min): 98 [place]: Normal P-Wave: Present QRS: Normal ST-T: Normal QT: Normal Comparison: No Change (10/05/20) EKG Interpretation Comments: SinuS Rhythm
== END 2020-12-21 00:30 | disposition home or self-care (01) ==
LOC: MW.ED 20:03
DX: T40.2X1A Poisoning by other opioids, accidental (unintentional), initial encounter (principal); E03.9 Hypothyroidism, unspecified; R73.03 Prediabetes; E66.9 Obesity, unspecified; Z68.28 Body mass index [BMI] 28.0-28.9, adult
CPT/HCPCS: 36415; 80053; 80143; 80179; 80305; 80307; 81001; 83036; 83735; 84439; 84443; 85025; 93005; 96374; 99284; J2405; J7030

== ENCOUNTER 2020-12-22 06:31 | Emergency (ER) | payer BC ==
--- NOTE | 2020-12-22 07:22 | PCM.EKG ---
#1 Interpretation EKG Date: 12/22/20 Time: 06:50 Rhythm: NSR Rate (Beats/Min): 89 [place]: Normal P-Wave: Present QRS: Normal ST-T: Normal QT: Normal Comparison: No Change (12/20/20) EKG Interpretation Comments: Sinus Rhythm
--- NOTE | 2020-12-22 08:00 | EDM.PDOC ---
<Ventura Parsons - Last Filed: 12/22/20 07:59> ED HPI GENERAL MEDICAL PROBLEM - General Chief Complaint: Drug or Alcohol Abuse Stated Complaint: OVERDOSE Time Seen by Provider: 12/22/20 06:34 - History of Present Illness INITIAL COMMENTS - FREE TEXT/NARRATIVE: CHIEF COMPLAINT(S): Overdose HISTORY OF PRESENT ILLNESS: This is a 40-year-old woman with a past medical history of left hip pain, subclinical hypothyroidism, anxiety and recent overdose 2 days ago who comes to the emergency department with a chief complaint of overdose. Per EMS: They were called because the patient was unresponsive. They reported 1-1/2 minutes of CPR. They provided the patient with 2 mg of IV Narcan and the patient awoke. She was complaining of a headache. Otherwise her vitals were stable in route. The patient states that she was taking a friend's Percocet that was given to her. She states that she thought it was a prescription however she now thinks that it may be coming from the street. She denies any suicidal ideation, suicidal attempt. She denies any chest pain, shortness of breath, abdominal pain, nausea or vomiting. She states that she does have chronic left hip pain and nothing seems to work for it. She was given multiple medications and has tried multiple things which have not worked. She states that she has been putting icy hot on it which has not relieved it. She does not use any ice and has not tried Tylenol or Motrin. She is able to ambulate on her left hip. She denies any fever, redness or chills. She rates her pain currently is 4 out of 10. She denies any radiation of this pain. She denies any numbness, tingling, weakness. REVIEW OF SYSTEMS: Constitutional: Denies fever, chills. Eyes: Denies eye pain Ears, Nose, Mouth, & Throat: Denies earache Cardiovascular: Denies chest pain Respiratory: Denies shortness of breath Gastrointestinal: Denies Nausea, vomiting, diarrhea, hematochezia. Genitourinary: Denies hematuria Skin:Denies a rash MSK: Positive for left hip pain Neurological: Positive for headache. Denies blurred vision, numbness, tingling, weakness Psychiatric: Denies depression PAST MEDICAL HISTORY: As per history of present illness and as reviewed below otherwise noncontributory. SURGICAL HISTORY: As per history of present illness and as reviewed below otherwise noncontributory. SOCIAL HISTORY: As per history of present illness and as reviewed below otherwise noncontributory. FAMILY HISTORY: As per history of present illness and as reviewed below otherwise noncontributory. EXAMINATION OF ORGAN SYSTEMS/BODY AREAS: Constitutional: Blood pressure is 115/88, heart rate 94, respiratory rate 19 with an oxygen saturation 9 9% on room air. Temperature 36.7 General: Well-appearing woman who is in no acute distress Psychiatric: Appropriate mood and affect. Eyes: No scleral icterus or conjunctival erythema pupils are 3 mm and reactive bilaterally. No nystagmus noted. Extraocular movements intact. ENMT: Moist mucous membranes. No pharyngeal erythema Cardiovascular: Regular, rate, and rhythm. No gallops, murmurs, or rubs. Bilateral upper extremity pulses symmetric and intact. No peripheral edema. No JVD. Respiratory: Lungs clear to auscultation bilaterally. No wheezes, rales, or rhonchi. Gastrointestinal: Soft, non-tender, non-distended. Normoactive bowel sounds Genitourinary: No suprapubic tenderness Musculoskeletal: Normal range of motion. Skin: No lesions or abrasions. Neurological: Alert, GCS 15 strength and sensation grossly intact in upper and lower extremities bilaterally. MEDICAL DECISION MAKING AND COURSE IN THE ED WITH INTERPRETATION/REVIEW OF DIAGNOSTIC STUDIES: This is a 40-year-old woman with a recent accidental overdose who comes to the emergency department with an additional accidental overdose after taking a friend's Percocet. At this time I do suspect that this medication is likely laced given her repeat overdoses. We did have a lengthy discussion with the patient that she should stop taking these tablets. I recommended to her that after observation she should follow-up with her primary care physician for further pain management. I do not believe any imaging or labs are indicated. We will observe the patient in the emergency department for recurrence of overdose as we do not know exactly what she took. DISPOSITION: Patient was signed out to oncoming day team physician pending reevaluation and final disposition CONDITION: Fair PROCEDURES: None FINAL IMPRESSION(S)/DIAGNOSES: 1. Acute accidental opiate overdose Ventura Parsons M.D. - Related Data Allergies Allergy/AdvReac Type Severity Reaction Status Date / Time No Known Allergies Allergy Verified 12/22/20 06:32 Home Meds: Home Meds FLUoxetine HCl [Prozac] 40 mg PO QAM 09/09/17 [History] LORazepam 1 mg PO TID PRN 09/09/17 [History] SUMAtriptan [Imitrex] 50 mg PO ASDIRECTED PRN 09/09/17 [History] Topiramate [Topiramate ER] 150 mg PO DAILY 10/05/20 [History] busPIRone [Buspar] 10 mg PO TID 10/05/20 [History] Naloxone HCl [Narcan] 4 mg NS ONETIME PRN #1 spray 12/22/20 [Rx] Past Medical History HEENT 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: Other (See Below) Other HEENT History: wears glasses Cardiovascular 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: Other (See Below) Other Cardiovascular History: states had a murmur in her early teens Respiratory 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: None Gastrointestinal 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: None, Other (See Below) Genitourinary 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: None 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 Other CIRCULAR RIPSAW OPERATOR History: spontaneous AB x15 Musculoskeletal 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: None Neurological 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: Migraines Psychiatric 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: Anxiety, Depression, Panic Attack Endocrine/Metabolic 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: Obesity/BMI 30+ Hematologic 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: Other (See Below) Immunologic 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: None Oncologic (Cancer) 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: None Dermatologic 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: None - Infectious Disease History Infectious Disease 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: None - Past Surgical History Head Surgeries/Procedures: Reports: None HEENT Surgical 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: None Cardiovascular Surgical 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: None Respiratory Surgical 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: None GI Surgical 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: None Other GI Surgeries/Procedures: tumy tuck, Female Surgical 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: Other (See Below) Other Female Surgeries/Procedures: hysteroscopy Endocrine Surgical 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: None Musculoskeletal Surgical 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: None Social & Family History - Family History Family Medical History: No Pertinent Family History - Tobacco Use Tobacco Use Status *Q: Never Tobacco User - Caffeine Use Caffeine Use: Reports: None - Recreational Drug Use Recreational Drug Use: No ED ROS GENERAL - Review of Systems Review Of Systems: See Below ED EXAM, GENERAL - Physical Exam Exam: See Below Departure - Departure Disposition: Home, Self-Care 01 Clinical Impression: Opioid use disorder Opioid overdose Qualifiers: Encounter type: initial encounter Injury intent: accidental or unintentional Qualified Code(s): T40.2X1A - Poisoning by other opioids, accidental (unintentional), initial encounter - Discharge Information Prescriptions: Naloxone HCl [Narcan] 4 mg NS ONETIME PRN #1 spray PRN Reason: Other Instructions: Opioid Overdose Referrals: PCP,None [Primary Care Provider] - Forms: ED Department Discharge Additional Instructions: You were seen and evaluated in the ER today secondary to a likely opioid overdose. You were given Narcan by our EMS service to reverse the effects of the opioid. Overdosing on opioids can result in respiratory failure, which is not breathing, and . Please avoid any medications that are not prescribed to you by your doctor. You will be given a prescription for Narcan to keep with you for your family to utilize if this should happen again to you. Please make an appointment to see your doctor on Thursday for reevaluation and assessment of your pain. The following information is given to patients seen in the emergency department who are being discharged to home. This information is to outline your options for follow-up care. We provide all patients seen in our emergency department with a follow-up referral. The need for follow-up, as well as the timing and circumstances, are variable depending upon the specifics of your emergency department visit. If you don't have a primary care physician on staff, we will provide you with a referral. We always advise you to contact your personal physician following an emergency department visit to inform them of the circumstance of the visit and for follow-up with them and/or the need for any referrals to a consulting specialist. The emergency department will also refer you to a specialist when appropriate. This referral assures that you have the opportunity for follow-up care with a specialist. All of these measure are taken in an effort to provide you with optimal care, which includes your follow-up. Under all circumstances we always encourage you to contact your private physician who remains a resource for coordinating your care. When calling for follow-up care, please make the office aware that this follow-up is from your recent emergency room visit. If for any reason you are refused follow-up, please contact the [facility] Emergency Department at and asked to speak to the emergency department charge nurse. Christopher Conte [facility] - Primary Care [address] [place] [address] [id number] [address] [id number] Sepsis Event Note (ED) - Evaluation Sepsis Screening Result: No Definite Risk <Russ Parikh - Last Filed: 12/23/20 19:25> ED HPI GENERAL MEDICAL PROBLEM - History of Present Illness INITIAL COMMENTS - FREE TEXT/NARRATIVE: 8:35 AM: Signout received by me from Dr. Melendez at 7 AM. Patient currently is alert awake and orient x3. Patient is been resting comfortably in the ED without any evidence of respiratory failure or airway compromise. Patient's pulse ox is 99% on room air and her vital signs remained stable. Patient has been ambulating to the bathroom without any difficulty. Patient's significant other is currently sitting at bedside. Patient reports that she has been taking a friend's pain medicines that she thought was oxycodone to assist with her left hip pain which has been chronic and is currently being evaluated by her Workmen's Comp. doctor. Patient is extremely tearful and did not realize the significant consequences to utilizing nonprescription medications. I have discussed with the patient that we will continue to monitor her here in the ED for 2 to 3 hours to make sure that her airway remained stable as the Narcan wore off. Patient will be discharged home with a Narcan nasal injector in case it should happen again to her. Patient adamantly denies suicidal ideation or suicidal attempts. Patient reports that she does have a history of self-harm in the past without was greater than 2 years ago. Patient denies any issues with depression at this time. This patient was seen and evaluated during the 2019 SARS-CoV-2 novel coronavirus pandemic period. Community viral transmission is ongoing at time of this encounter and the emergency department is operating under pandemic response procedures. Constitutional: Patient is oriented to person, place, and time. Appears well- developed and well-nourished. No distress. HEENT: Moist mucous membranes Head: Normocephalic and atraumatic Eyes: Right eye exhibits no discharge. Left eye exhibits no discharge. No scleral icterus Neck: Normal range of motion. No tracheal deviation present. Cardiovascular: Normal rate and regular rhythm. Pulmonary: Effort normal, no respiratory distress. Abdominal: No distention Musculoskeletal: Normal range of motion Neurologic: Alert and oriented to person, place and time. Skin: [place], warm and dry. Psychiatric: Normal mood and affect. Behavior is normal. Judgment and thought content normal. Nursing note and vital signs have been reviewed Patient is alert awake and orient x3. Patient airway is intact and protected. Reassessment at the time of disposition demonstrates that the patient is in no acute distress. The patient has remained stable throughout the entire ED visit and is without objective evidence for acute process requiring urgent intervention or hospitalization. The patient is stable for discharge, counseling is provided as documented above, discussed symptomatic treatment and specific conditions for return. I have spoken with the patient/caregiver and discussed todays findings, in addition to providing specific details for the plan of care. Questions are answered and there is agreement with the plan. ED ROS GENERAL - Review of Systems Review Of Systems: See Below ED EXAM, GENERAL - Physical Exam Exam: See Below Course - Vital Signs Last Recorded V/S: Last Vital Signs Temp 98.1 F 12/22/20 06:32 Pulse 80 12/22/20 09:27 Resp 18 12/22/20 09:27 BP 120/69 12/22/20 09:27 Pulse Ox 98 12/22/20 09:27 Departure - Departure Time of Disposition: 10:05 Condition: Good
[2020-12-22 09:29] VITALS: BP 120/69; PULSE 80
== END 2020-12-22 09:31 | disposition home or self-care (01) ==
LOC: MW.ED 06:31
DX: T40.2X1A Poisoning by other opioids, accidental (unintentional), initial encounter (principal); F11.99 Opioid use, unspecified with unspecified opioid-induced disorder; E66.9 Obesity, unspecified; Z68.28 Body mass index [BMI] 28.0-28.9, adult; Z79.899 Other long term (current) drug therapy
CPT/HCPCS: 93005; 99284; 99284-25

== ENCOUNTER → 2021-02-26 | Day surgery (SDC) | payer BC ==
[~2021-02-26] MED LIST changes: +Acetaminophen 500 MG Tab PO ONE; +Acetaminophen/oxyCODONE 325-5 MG Tab PO PRN; +Albuterol 0.083% 2.5 MG/3 ML Neb Soln NEB PRN; +Belladonna Alkaloids/Opium 16.2-30 MG Supp RECTAL ONE; +Dexamethasone 4 MG/ML 5 ML MDV ONE; +Dextrose 5%-0.45% NaCl 1,000 ML IV SCH; +Enoxaparin 40 MG/0.4 ML Syringe SUBCUT ONE; +Fluorescein 5 ML Vial ONE; +Glycopyrrolate 0.2 MG/ML SDV ONE; +HYDROmorphone 1 MG/ML Syringe IVPUSH PRN; +Ketamine 500 mg/10 ML MDV ONE; +Ketorolac 30 MG/ML SDV IVPUSH ONE; +Ketorolac 30 MG/ML SDV IVPUSH PRN; +Ketorolac 30 MG/ML SDV ONE; +Metoclopramide 10 MG/2 ML SDV IVPUSH PRN; +Midazolam 1 MG/ML 2 ML SDV ONE; +Morphine 2 MG/ML SYRINGE IVPUSH PRN; +Naloxone 0.4 MG/ML Syringe IVPUSH PRN; +Octyl 2-Cyanoacrylate 1 Tube ONE; +Ondansetron 4 MG/2 ML SDV IVPUSH PRN; +Ondansetron 4 MG/2 ML SDV ONE; +Promethazine 25 MG/ML SDV IM PRN; +Propofol 200 MG/20 ML SDV ONE; -Sodium Chloride 0.9% 10 ML Syringe FLUSH PRN; -Sodium Chloride 0.9% 2.5 ML Syringe FLUSH PRN; -Vasopressin 20 Units/1 ML MDV ONE; +ceFAZolin 1 GM in Premix Bag 1 BAG IV ONE; +ePHEDrine 50 MG/ML SDV ONE; +fentaNYL 100 MCG/2 ML SDV IVPUSH PRN; +fentaNYL 100 MCG/2 ML SDV ONE; +fentaNYL 250 MCG/5 ML SDV ONE
--- NOTE | 2021-02-26 07:18 | PCM.PREANE ---
Preanesthetic Assessment - Procedure Proposed Procedure: Hysterectomy, Ronald Slpingo - Anesthesia/Transfusion/Family Hx Anesthesia History: Prior Anesthesia Without Reaction Other Type of Anesthesia Reaction Comment: "my father had hard time waking up once" Transfusion History: No Prior Transfusion(s) Intubation History: Unknown - Review of Systems General: No Symptoms Pulmonary: No Symptoms (Quit smoking 4 years ago) Cardiovascular: No Symptoms Gastrointestinal: No Symptoms Neurological: No Symptoms Other: Reports: None - Physical Assessment NPO Status Date: 02/25/21 NPO Status Time: 17:00 Height: 5 ft 2 in Weight: 72.575 kg ASA Class: 2 Mental Status: Alert & Oriented x3 Airway Class: Mallampati = 2 Dentition: Reports: Normal Dentition Thyro-Mental Finger Breadths: 3 Mouth Opening Finger Breadths: 3 ROM/Head Extension: Full Lungs: Clear to Auscultation, Normal Respiratory Effort Cardiovascular: Regular Rate, Regular Rhythm - Allergies Allergies/Adverse Reactions: Allergies Allergy/AdvReac Type Severity Reaction Status Date / Time No Known Allergies Allergy Verified 02/20/21 10:18 - Acknowledgements Anesthesia Type Planned: General Anesthesia Pt an Appropriate Candidate for the Planned Anesthesia: Yes Alternatives and Risks of Anesthesia Discussed w Pt/Guardian: Yes Pt/Guardian Understands and Agrees with Anesthesia Plan: Yes PreAnesthesia Questionnaire HEENT 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: Other (See Below) Other HEENT History: wears glasses Cardiovascular 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: Other (See Below) Other Cardiovascular History: states had a murmur in her early teens Respiratory 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: None Gastrointestinal 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: None, Other (See Below) Genitourinary 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: None HAND STEMMER 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 Other OB/BYN History: spontaneous AB x15 Musculoskeletal 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: Arthritis Neurological 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: Migraines Psychiatric 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: Anxiety, Depression, Panic Attack Endocrine/Metabolic 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: None Hematologic 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: None, Other (See Below) Immunologic 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: None Oncologic (Cancer) 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: None Dermatologic 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: None - Infectious Disease History Infectious Disease 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: None - Past Surgical History Head Surgeries/Procedures: Reports: None HEENT Surgical 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: None Cardiovascular Surgical 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: None Respiratory Surgical 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: None GI Surgical 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: None Female Surgical 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: Other (See Below) Other Female Surgeries/Procedures: hysteroscopy 09/08/2017, laparotomy with myomectomy 12/07/2017 Endocrine Surgical 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: None Neurological Surgical 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: None Musculoskeletal Surgical 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: None Oncologic Surgical 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: None Dermatological Surgical 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: Plastic Surgical Reconstruction/Repair, Other (See Below) - SUBSTANCE USE Tobacco Use Status *Q: Former Tobacco User Tobacco Use Within Last Twelve Months: No - HOME MEDS Home Medications: Home Meds FLUoxetine HCl [Prozac] 40 mg PO QAM 09/09/17 [History] LORazepam 1 mg PO TID PRN 09/09/17 [History] SUMAtriptan [Imitrex] 100 mg PO ASDIRECTED PRN 09/09/17 [History] busPIRone [Buspar] 10 mg PO TID 10/05/20 [History] Acetaminophen 325 mg PO TID PRN 02/20/21 [History] Amitriptyline [Elavil] 50 mg PO BEDTIME 02/20/21 [History] Aspirin/Acetaminophen/Caffeine [Excedrin Migraine Caplet] 2 tab PO Q6H PRN 02/20/21 [History] Erenumab-Aooe [Aimovig Autoinjector] 1 injection IM ASDIRECTED 02/20/21 [History] Topiramate [Topamax] 150 mg PO DAILY 02/20/21 [History] - CURRENT (IN HOUSE) MEDS Current Meds: Current Medications Lactated Ringer's (Ringers, Lactated) 1,000 mls @ 100 mls/hr IV ASDIRECTED [facility]
[2021-02-26 07:43] LABS: BLOOD UREA NITROGEN,BUN 12 mg/dL (7.0-18.0); CARBON DIOXIDE,CO2 20.3 mmol/L (21.0-32.0); CHLORIDE,CL 105 mmol/L (98-107); GLUCOSE RANDOM 96 mg/dL (74-106); POTASSIUM,K 4.1 mmol/L (3.5-5.1); SODIUM,NA 135 mmol/L (136-145)
--- NOTE | 2021-02-26 10:02 | PCM.OPNOTE ---
<Erin Calhoun - Last Filed: 02/26/21 09:56> - General Post-Op/Procedure Note Date of Surgery/Procedure: 02/26/21 Operative Procedure(s): Total laparoscopic hysterectomy and bilateral salpingectomy with cytoscopy Findings: Normal sized uterus and tubes. Adhesions from the bladder peritoneum to the anterior lower uterine segment. Dense omental adhesions from umbilicus to the anterior abdominal wall. Pre Op Diagnosis: Chronic pelvic pain Post-Op Diagnosis: Chronic pelvic pain Anesthesia Technique: General ET Tube Primary Surgeon: Peter Sandoval Rounding Machine Operator: Valentina Orozco Rounding Machine Operator: Erin Calhoun Pathology: Uterus and bilateral fallopian tubes Fluid Replacement, Intraop: 2,100 EBL in mLs: 20 Complications: none known Condition: Stable <Peter Sandoval - Last Filed: 02/26/21 10:15> - General Post-Op/Procedure Note Operative Procedure(s): Total Laparoscopic Hysterectomy. Bilateral salphingectomy. Biggs culdoplasty. Cystoscopy Findings: Normal sized anteverted uterus, Normal appearing tubes, Normal right ovary , Normal left ovaries with 2cm physiologic cyst Thin bladder peritoneum adhesion to the anterior lower uterine segment Dense omental adhesion to the anterior abdominal wall Pre Op Diagnosis: 40yo P00(15)0 with Chronic Pelvic Pain. Hx of Myomectomy Post-Op Diagnosis: Same Free Text/Narrative:: Intake & Output 02/25/21 02/26/21 02/26/21 22:59 06:59 14:59 Intake Total 2100 Balance 2100
--- NOTE | 2021-02-26 10:02 | PCM.POSTAN ---
POST ANESTHESIA ASSESSMENT - MENTAL STATUS Mental Status: Alert, Oriented - VITAL SIGNS Vital Signs: Last Vital Signs Temp 96.6 F L 02/26/21 06:36 Pulse 77 02/26/21 06:36 Resp 15 02/26/21 06:36 BP 103/68 02/26/21 06:36 Pulse Ox 99 02/26/21 06:36 - RESPIRATORY Respiratory Status: Respiratory Rate WNL, Airway Patent, O2 Saturation Stable - CARDIOVASCULAR CV Status: Pulse Rate WNL, Blood Pressure Stable - GASTROINTESTINAL GI Status: No Symptoms - PAIN Pain Score: 5 - POST OP HYDRATION Hydration Status: Adequate & Stable
--- NOTE | 2021-02-26 10:34 | PCM48HPAN ---
Post Anesthesia Note - EVALUATION WITHIN 48HRS OF ANESTHETIC Vital Signs in Normal Range: Yes Patient Participated in Evaluation: Yes Respiratory Function Stable: Yes Airway Patent: Yes Cardiovascular Function Stable: Yes Hydration Status Stable: Yes Pain Control Satisfactory: Yes Nausea and Vomiting Control Satisfactory: Yes Mental Status Recovered: Yes Vital Signs: Last Vital Signs Temp 96.6 F L 02/26/21 06:36 Pulse 77 02/26/21 06:36 Resp 15 02/26/21 06:36 BP 103/68 02/26/21 06:36 Pulse Ox 99 02/26/21 06:36 - COMMENTS/OBSERVATIONS Free Text/Narrative:: Pt doing well post-op. VSS. No apparent anesthetic complications. Dr. Jamil Wright
[2021-02-26] MEDS: Metoclopramide 10 MG/2 ML SDV IVPUSH SCH ×3 (12:15→23:18)
[2021-02-26] MEDS: Morphine 4 MG/ML Syringe IVPUSH PRN ×2 (15:42→18:40)
[2021-02-26] MEDS: Ketorolac 30 MG/ML SDV IVPUSH SCH (19:55)
[2021-02-26] MEDS: Sodium Chloride 0.9% 1,000 ML IV SCH (20:01)
[2021-02-26] MEDS: Acetaminophen/oxyCODONE 325-5 MG Tab PO PRN (23:43)
[2021-02-27] MEDS: Acetaminophen/oxyCODONE 325-5 MG Tab PO PRN (01:22)
[2021-02-27] MEDS: Ketorolac 30 MG/ML SDV IVPUSH SCH ×2 (02:20→08:31)
[2021-02-27] MEDS: Sodium Chloride 0.9% 1,000 ML IV SCH (04:11)
[2021-02-27] MEDS: Metoclopramide 10 MG/2 ML SDV IVPUSH SCH (05:47)
[2021-02-27 07:11] LABS: BLOOD UREA NITROGEN,BUN 9 mg/dL (7.0-18.0); CARBON DIOXIDE,CO2 19.6 mmol/L (21.0-32.0); CHLORIDE,CL 107 mmol/L (98-107); GLUCOSE RANDOM 117 mg/dL (74-106); POTASSIUM,K 4.1 mmol/L (3.5-5.1); SODIUM,NA 135 mmol/L (136-145)
--- NOTE | 2021-02-27 07:44 | PCM.PN ---
<Erin Calhoun - Last Filed: 02/27/21 08:04> - General Info Date of Service: 02/27/21 Admission Dx/Problem (Free Text): 40-year-old female with chronic pelvic pain pod #1 s/p total laparoscopic hysterectomy and bilateral salpingectomy with cytoscopy. Subjective Update: Feels ok. Has some pain near incision sites, but controlled with medication. Wbc increased to 17.17 from 7.12 yesterday. Afebrile. Denies fever, chills, nausea, vomiting. Ambulating well and urinating well. Tolerating regular diet. Mild bleeding in pad. Functional Status: Reports: Pain Controlled, Tolerating Diet, Ambulating, Urinating - Review of Systems General: Reports: No Symptoms HEENT: Reports: No Symptoms Pulmonary: Reports: No Symptoms Cardiovascular: Reports: No Symptoms Gastrointestinal: Reports: Abdominal Pain Genitourinary: Reports: No Symptoms Musculoskeletal: Reports: No Symptoms Skin: Reports: No Symptoms Neurological: Reports: No Symptoms Psychiatric: Reports: No Symptoms - Patient Data Vitals - Most Recent: Last Vital Signs Temp 36.8 C 02/26/21 20:00 Pulse 104 H 02/26/21 20:00 Resp 20 02/26/21 20:00 BP 96/54 L 02/26/21 20:00 Pulse Ox 96 02/26/21 20:00 Weight - Most Recent: 72.575 kg I&O - Last 24 Hours: Intake & Output 02/26/21 02/27/21 02/27/21 22:59 06:59 14:59 Output Total 1999 -1999 Lab Results Last 24 Hours: Laboratory Results - last 24 hr 02/26/21 02/26/21 02/26/21 Range/Units 07:00 07:04 07:04 WBC (4.0-11.0) K/uL RBC (4.30-5.90) M/uL Hgb (12.0-16.0) g/dL Hct (36.0-46.0) % MCV (80.0-98.0) fL MCH (27.0-32.0) pg MCHC (31.0-37.0) g/dL RDW Std Deviation (28.0-62.0) fl RDW Coeff of [place] (11.0-15.0) % Plt Count (150-400) K/uL MPV (7.40-12.00) fL Neut % (Auto) (48.0-80.0) % Lymph % (Auto) (16.0-40.0) % [place] % (Auto) (0.0-15.0) % Eos % (Auto) (0.0-7.0) % Baso % (Auto) (0.0-1.5) % Neut # (Auto) (1.4-5.7) K/uL Lymph # (Auto) (0.6-2.4) K/uL [place] # (Auto) (0.0-0.8) K/uL Eos # (Auto) (0.0-0.7) K/uL Baso # (Auto) (0.0-0.1) K/uL Nucleated RBC % /100WBC Nucleated RBCs # K/uL Sodium 135 L (136-145) mmol/L Potassium 4.1 (3.5-5.1) mmol/L Chloride 105 (98-107) mmol/L Carbon Dioxide 20.3 L (21.0-32.0) mmol/L BUN 12 (7.0-18.0) mg/dL Creatinine 0.9 (0.6-1.0) mg/dL Est Cr Clr Drug Dosing 65.72 mL/min Estimated GFR (MDRD) > 60.0 ml/min Glucose 96 (74-106) mg/dL Calcium 8.0 L (8.5-10.1) mg/dL HCG, Qual NEGATIVE (NEG) Blood Type O POSITIVE Antibody Screen NEGATIVE 02/27/21 02/27/21 Range/Units 05:10 05:10 WBC 17.17 H (4.0-11.0) K/uL RBC 3.71 L (4.30-5.90) M/uL Hgb 11.1 L (12.0-16.0) g/dL Hct 33.4 L (36.0-46.0) % MCV 90.0 (80.0-98.0) fL MCH 29.9 (27.0-32.0) pg MCHC 33.2 (31.0-37.0) g/dL RDW Std Deviation 44.3 (28.0-62.0) fl RDW Coeff of [place] 14 (11.0-15.0) % Plt Count 319 (150-400) K/uL MPV 9.60 (7.40-12.00) fL Neut % (Auto) 83.3 H (48.0-80.0) % Lymph % (Auto) 8.9 L (16.0-40.0) % [place] % (Auto) 7.7 (0.0-15.0) % Eos % (Auto) 0.0 (0.0-7.0) % Baso % (Auto) 0.1 (0.0-1.5) % Neut # (Auto) 14.3 H (1.4-5.7) K/uL Lymph # (Auto) 1.5 (0.6-2.4) K/uL [place] # (Auto) 1.3 H (0.0-0.8) K/uL Eos # (Auto) 0.0 (0.0-0.7) K/uL Baso # (Auto) 0.0 (0.0-0.1) K/uL Nucleated RBC % 0.0 /100WBC Nucleated RBCs # 0 K/uL Sodium 135 L (136-145) mmol/L Potassium 4.1 (3.5-5.1) mmol/L Chloride 107 (98-107) mmol/L Carbon Dioxide 19.6 L (21.0-32.0) mmol/L BUN 9 (7.0-18.0) mg/dL Creatinine 0.9 (0.6-1.0) mg/dL Est Cr Clr Drug Dosing 65.72 mL/min Estimated GFR (MDRD) > 60.0 ml/min Glucose 117 H (74-106) mg/dL Calcium 7.4 L (8.5-10.1) mg/dL HCG, Qual (NEG) Blood Type Antibody Screen Med Orders - Current: Current Medications Lactated Ringer's (Ringers, Lactated) 1,000 mls @ 100 mls/hr IV ASDIRECTED [facility] Last Infusion: 02/26/21 12:15 Dose: Infused Documented by: Dextrose/Sodium Chloride (Dextrose 5%-1/2 Ns) 1,000 mls @ 125 mls/hr IV ASDIRECTED [facility] Last Admin: 02/26/21 12:15 Dose: 125 mls/hr Documented by: Sodium Chloride (Normal Saline) 1,000 mls @ 125 mls/hr IV ASDIRECTED [facility] Last Admin: 02/27/21 04:11 Dose: 125 mls/hr Documented by: Ketorolac Tromethamine (Ketorolac 30 Mg/Ml Sdv) 30 mg IVPUSH Q6H PRN PRN Reason: Pain (severe 7-10) Stop: 03/03/21 16:31 Ketorolac Tromethamine (Ketorolac 30 Mg/Ml Sdv) 30 mg IVPUSH Q6H [facility] Stop: 03/03/21 18:47 Last Admin: 02/27/21 02:20 Dose: 30 mg Documented by: Metoclopramide HCl (Metoclopramide 10 Mg/2 Ml Sdv) 10 mg IVPUSH Q6H [facility] Last Admin: 02/27/21 05:47 Dose: 10 mg Documented by: Morphine Sulfate (Morphine 4 Mg/Ml Syringe) 4 mg IVPUSH Q2H PRN PRN Reason: Pain (severe 7-10) Last Admin: 02/26/21 18:40 Dose: 4 mg Documented by: Ondansetron HCl (Ondansetron 4 Mg/2 Ml Sdv) 4 mg IVPUSH Q6H PRN PRN Reason: Nausea/Vomiting Oxycodone/Acetaminophen (Acetaminophen/Oxycodone 325-5 Mg Tab) 1 tab PO Q4H PRN PRN Reason: Pain (moderate 4-6) Last Admin: 02/27/21 01:22 Dose: 1 tab Documented by: Oxycodone/Acetaminophen (Acetaminophen/Oxycodone 325-5 Mg Tab) 2 tab PO Q4H PRN PRN Reason: Pain (moderate 4-6) Last Admin: 02/27/21 05:46 Dose: 2 tab Documented by: Promethazine HCl (Promethazine 25 Mg/Ml Sdv) 25 mg IM Q6H PRN PRN Reason: Nausea/Vomiting Discontinued Medications Acetaminophen (Acetaminophen 500 Mg Tab) 1,000 mg PO ONETIME ONE Stop: 02/26/21 16:01 Last Admin: 02/26/21 15:43 Dose: 1,000 mg Documented by: Albuterol (Albuterol 0.083% 2.5 Mg/3 Ml Neb Soln) 2.5 mg NEB ONETIME PRN PRN Reason: Wheezing Belladonna Alkaloids/Opium (Belladonna Alkaloids/Opium 16.2-30 Mg Supp) 1 supp RECTAL ONETIME ONE Stop: 02/26/21 12:01 Last Admin: 02/26/21 12:55 Dose: 1 supp Documented by: Bupivacaine HCl (Bupivacaine 0.25% 10 Ml Sdv) Confirm Administered Dose 10 ml .ROUTE .STK-MED ONE Stop: 02/26/21 07:32 Dexamethasone (Dexamethasone 4 Mg/Ml 5 Ml Mdv) Confirm Administered Dose 20 mg .ROUTE .STK-MED ONE Stop: 02/26/21 11:16 Droperidol (Droperidol 5 Mg/2 Ml Sdv) 0.625 mg IVPUSH ONETIME PRN PRN Reason: Nausea/Vomiting Ephedrine Sulfate (Ephedrine 50 Mg/Ml Sdv) Confirm Administered Dose 50 mg .[place] .STK-MED ONE Stop: 02/26/21 11:16 Fentanyl (Fentanyl 250 Mcg/5 Ml Sdv) Confirm Administered Dose 250 mcg .ROUTE .STK-MED ONE Stop: 02/26/21 07:11 Fentanyl (Fentanyl 100 Mcg/2 Ml Sdv) 50 mcg IVPUSH Q5M PRN PRN Reason: Pain (mild 1-3) Fentanyl (Fentanyl 250 Mcg/5 Ml Sdv) Confirm Administered Dose 250 mcg .ROUTE .STK-MED ONE Stop: 02/26/21 08:33 Fentanyl (Fentanyl 100 Mcg/2 Ml Sdv) Confirm Administered Dose 100 mcg .ROUTE .STK-MED ONE Stop: 02/26/21 09:55 Fluorescein Sodium (Fluorescein 5 Ml Vial) Confirm Administered Dose 5 ml .ROUTE .STK-MED ONE Stop: 02/26/21 07:31 Glycopyrrolate (Glycopyrrolate 0.2 Mg/Ml Sdv) Confirm Administered Dose 0.6 mg .ROUTE .STK-MED ONE Stop: 02/26/21 11:16 Hydromorphone HCl (Hydromorphone 1 Mg/Ml Syringe) 1 mg IVPUSH Q10M PRN PRN Reason: Pain (moderate 4-6) Last Admin: 02/26/21 10:20 Dose: 1 mg Documented by: Cefazolin Sodium/Dextrose (Ancef 2 Gm/50 Ml) Confirm Administered Dose 50 mls @ as directed .ROUTE .STK-MED ONE Stop: 02/26/21 11:16 Acetaminophen (Ofirmev 1000 Mg/100 Ml) Confirm Administered Dose 100 mls @ as directed .ROUTE .[facility]-MED ONE Stop: 02/26/21 11:16 Ketamine HCl (Ketamine 500 Mg/10 Ml Mdv) Confirm Administered Dose 500 mg .ROUTE .[facility]-MED ONE Stop: 02/26/21 08:24 Ketorolac Tromethamine (Ketorolac 30 Mg/Ml Sdv) 30 mg IVPUSH ONETIME ONE Stop: 02/26/21 10:21 Last Admin: 02/26/21 13:24 Dose: Not Given Documented by: Ketorolac Tromethamine (Ketorolac 30 Mg/Ml Sdv) Confirm Administered Dose 30 mg .ROUTE .[facility]-MED ONE Stop: 02/26/21 11:16 Methylene Blue (Methylene Blue 50 Mg/10 Ml Ampule) Confirm Administered Dose 0 mg .ROUTE .[facility] ONE Stop: 02/26/21 07:32 Metoclopramide HCl (Metoclopramide 10 Mg/2 Ml Sdv) 10 mg IVPUSH ONETIME PRN PRN Reason: Nausea/Vomiting Midazolam HCl (Midazolam 1 Mg/Ml 2 Ml Sdv) Confirm Administered Dose 0 mg .ROUTE .[facility]-MED ONE Stop: 02/26/21 07:10 Morphine Sulfate (Morphine 2 Mg/Ml Syringe) 2 mg IVPUSH Q10M PRN PRN Reason: Pain (severe 7-10) Naloxone HCl (Naloxone 0.4 Mg/Ml Syringe) 0.1 mg IVPUSH ASDIRECTED PRN PRN Reason: Respiratory Depression Octyl Cyanoacrylate (Octyl 2-Cyanoacrylate 1 Tube) Confirm Administered Dose 1 applic .ROUTE .[facility]-MED ONE Stop: 02/26/21 07:32 Ondansetron HCl (Ondansetron 4 Mg/2 Ml Sdv) 4 mg IVPUSH ONETIME PRN PRN Reason: Nausea/Vomiting Ondansetron HCl (Ondansetron 4 Mg/2 Ml Sdv) Confirm Administered Dose 4 mg .ROUTE .[facility]-MED ONE Stop: 02/26/21 11:16 Propofol (Propofol 200 Mg/20 Ml Sdv) Confirm Administered Dose 200 mg .ROUTE . [facility]-MED ONE Stop: 02/26/21 07:10 Vecuronium Mccrory (Vecuronium 10 Mg Vial) Confirm Administered Dose 10 mg .ROUTE .STK-MED ONE Stop: 02/26/21 11:16 - Exam Urinary Catheter Total Time: 0Days 11Hours General: Alert, Oriented HEENT: EOMI Neck: Supple Lungs: Clear to Auscultation, Normal Respiratory Effort Cardiovascular: Regular Rate, Regular Rhythm GI/Abdominal Exam: Normal Bowel Sounds, Tender Extremities: Normal Inspection, Non-Tender, No Pedal Edema Skin: Warm, Dry Wound/Incisions: Healing Well, Dressing Dry and Intact Neurological: No New Focal Deficit Psy/Mental Status: Alert, Normal Affect, Normal Mood - Patient Data Lab Results Last 24 hrs: Laboratory Results - last 24 hr 02/26/21 02/26/21 02/26/21 Range/Units 07:00 07:04 07:04 WBC (4.0-11.0) K/uL RBC (4.30-5.90) M/uL Hgb (12.0-16.0) g/dL Hct (36.0-46.0) % MCV (80.0-98.0) fL MCH (27.0-32.0) pg MCHC (31.0-37.0) g/dL RDW Std Deviation (28.0-62.0) fl RDW Coeff of [place] (11.0-15.0) % Plt Count (150-400) K/uL MPV (7.40-12.00) fL Neut % (Auto) (48.0-80.0) % Lymph % (Auto) (16.0-40.0) % [place] % (Auto) (0.0-15.0) % Eos % (Auto) (0.0-7.0) % Baso % (Auto) (0.0-1.5) % Neut # (Auto) (1.4-5.7) K/uL Lymph # (Auto) (0.6-2.4) K/uL [place] # (Auto) (0.0-0.8) K/uL Eos # (Auto) (0.0-0.7) K/uL Baso # (Auto) (0.0-0.1) K/uL Nucleated RBC % /100WBC Nucleated RBCs # K/uL Sodium 135 L (136-145) mmol/L Potassium 4.1 (3.5-5.1) mmol/L Chloride 105 (98-107) mmol/L Carbon Dioxide 20.3 L (21.0-32.0) mmol/L BUN 12 (7.0-18.0) mg/dL Creatinine 0.9 (0.6-1.0) mg/dL Est Cr Clr Drug Dosing 65.72 mL/min Estimated GFR (MDRD) > 60.0 ml/min Glucose 96 (74-106) mg/dL Calcium 8.0 L (8.5-10.1) mg/dL HCG, Qual NEGATIVE (NEG) Blood Type O POSITIVE Antibody Screen NEGATIVE 02/27/21 02/27/21 Range/Units 05:10 05:10 WBC 17.17 H (4.0-11.0) K/uL RBC 3.71 L (4.30-5.90) M/uL Hgb 11.1 L (12.0-16.0) g/dL Hct 33.4 L (36.0-46.0) % MCV 90.0 (80.0-98.0) fL MCH 29.9 (27.0-32.0) pg MCHC 33.2 (31.0-37.0) g/dL RDW Std Deviation 44.3 (28.0-62.0) fl RDW Coeff of [place] 14 (11.0-15.0) % Plt Count 319 (150-400) K/uL MPV 9.60 (7.40-12.00) fL Neut % (Auto) 83.3 H (48.0-80.0) % Lymph % (Auto) 8.9 L (16.0-40.0) % [place] % (Auto) 7.7 (0.0-15.0) % Eos % (Auto) 0.0 (0.0-7.0) % Baso % (Auto) 0.1 (0.0-1.5) % Neut # (Auto) 14.3 H (1.4-5.7) K/uL Lymph # (Auto) 1.5 (0.6-2.4) K/uL [place] # (Auto) 1.3 H (0.0-0.8) K/uL Eos # (Auto) 0.0 (0.0-0.7) K/uL Baso # (Auto) 0.0 (0.0-0.1) K/uL Nucleated RBC % 0.0 /100WBC Nucleated RBCs # 0 K/uL Sodium 135 L (136-145) mmol/L Potassium 4.1 (3.5-5.1) mmol/L Chloride 107 (98-107) mmol/L Carbon Dioxide 19.6 L (21.0-32.0) mmol/L BUN 9 (7.0-18.0) mg/dL Creatinine 0.9 (0.6-1.0) mg/dL Est Cr Clr Drug Dosing 65.72 mL/min Estimated GFR (MDRD) > 60.0 ml/min Glucose 117 H (74-106) mg/dL Calcium 7.4 L (8.5-10.1) mg/dL HCG, Qual (NEG) Blood Type Antibody Screen Result Diagrams: 02/27/21 05:10 02/27/21 05:10 Sepsis Event Note - Focused Exam Vital Signs: Vital Signs Temp Pulse Resp BP Pulse Ox 02/26/21 20:00 36.8 C 104 H 20 96/54 L 96 - Problem List Review Problem List Initiated/Reviewed/Updated: Yes - Assessment Assessment:: 40-year-old female with chronic pelvic pain pod #1 s/p total laparoscopic hysterectomy and bilateral salpingectomy with cytoscopy. Endorses pain near incision sites, but controlled with medication. Wbc at 17.17 from 7.12. Hbg 11.1 down from 14.0. Afebrile. Denies fever, chills, nausea, or vomiting. States after a previous surgery she was told her wbc "were off". Incision sites covered with dressings that are clean and dry. - Plan Plan:: - Discussed with Dr. Wong and expect increase WBC after surgery. - Continue to monitor for fever, chills, or signs of infection - Multimodal pain control - Regular diet - Can likely discharge home today <Peter Sandoval - Last Filed: 02/27/21 08:29> - General Info Subjective Update: agree with assessment - Patient Data Vitals - Most Recent: Last Vital Signs Temp 36.8 C 02/26/21 20:00 Pulse 85 02/27/21 04:20 Resp 16 02/27/21 04:20 BP 101/59 L 02/27/21 04:20 Pulse Ox 97 02/27/21 04:20 I&O - Last 24 Hours: Intake & Output 02/26/21 02/27/21 02/27/21 22:59 06:59 14:59 Output Total 1999 1249 Balance -1999 -1249 Lab Results Last 24 Hours: Laboratory Results - last 24 hr 02/27/21 02/27/21 Range/Units 05:10 05:10 WBC 17.17 H (4.0-11.0) K/uL RBC 3.71 L (4.30-5.90) M/uL Hgb 11.1 L (12.0-16.0) g/dL Hct 33.4 L (36.0-46.0) % MCV 90.0 (80.0-98.0) fL MCH 29.9 (27.0-32.0) pg MCHC 33.2 (31.0-37.0) g/dL RDW Std Deviation 44.3 (28.0-62.0) fl RDW Coeff of [place] 14 (11.0-15.0) % Plt Count 319 (150-400) K/uL MPV 9.60 (7.40-12.00) fL Neut % (Auto) 83.3 H (48.0-80.0) % Lymph % (Auto) 8.9 L (16.0-40.0) % [place] % (Auto) 7.7 (0.0-15.0) % Eos % (Auto) 0.0 (0.0-7.0) % Baso % (Auto) 0.1 (0.0-1.5) % Neut # (Auto) 14.3 H (1.4-5.7) K/uL Lymph # (Auto) 1.5 (0.6-2.4) K/uL [place] # (Auto) 1.3 H (0.0-0.8) K/uL Eos # (Auto) 0.0 (0.0-0.7) K/uL Baso # (Auto) 0.0 (0.0-0.1) K/uL Nucleated RBC % 0.0 /100WBC Nucleated RBCs # 0 K/uL Sodium 135 L (136-145) mmol/L Potassium 4.1 (3.5-5.1) mmol/L Chloride 107 (98-107) mmol/L Carbon Dioxide 19.6 L (21.0-32.0) mmol/L BUN 9 (7.0-18.0) mg/dL Creatinine 0.9 (0.6-1.0) mg/dL Est Cr Clr Drug Dosing 65.72 mL/min Estimated GFR (MDRD) > 60.0 ml/min Glucose 117 H (74-106) mg/dL Calcium 7.4 L (8.5-10.1) mg/dL Med Orders - Current: Current Medications Lactated Ringer's (Ringers, Lactated) 1,000 mls @ 100 mls/hr IV ASDIRECTED [facility] Last Infusion: 02/26/21 12:15 Dose: Infused Documented by: Dextrose/Sodium Chloride (Dextrose 5%-1/2 Ns) 1,000 mls @ 125 mls/hr IV ASDIRECTED [facility] Last Admin: 02/26/21 12:15 Dose: 125 mls/hr Documented by: Sodium Chloride (Normal Saline) 1,000 mls @ 125 mls/hr IV ASDIRECTED [facility] Last Admin: 02/27/21 04:11 Dose: 125 mls/hr Documented by: Ketorolac Tromethamine (Ketorolac 30 Mg/Ml Sdv) 30 mg IVPUSH Q6H PRN PRN Reason: Pain (severe 7-10) Stop: 03/03/21 16:31 Ketorolac Tromethamine (Ketorolac 30 Mg/Ml Sdv) 30 mg IVPUSH Q6H [facility] Stop: 03/03/21 18:47 Last Admin: 02/27/21 02:20 Dose: 30 mg Documented by: Metoclopramide HCl (Metoclopramide 10 Mg/2 Ml Sdv) 10 mg IVPUSH Q6H [facility] Last Admin: 02/27/21 05:47 Dose: 10 mg Documented by: Morphine Sulfate (Morphine 4 Mg/Ml Syringe) 4 mg IVPUSH Q2H PRN PRN Reason: Pain (severe 7-10) Last Admin: 02/26/21 18:40 Dose: 4 mg Documented by: Ondansetron HCl (Ondansetron 4 Mg/2 Ml Sdv) 4 mg IVPUSH Q6H PRN PRN Reason: Nausea/Vomiting Oxycodone/Acetaminophen (Acetaminophen/Oxycodone 325-5 Mg Tab) 1 tab PO Q4H PRN PRN Reason: Pain (moderate 4-6) Last Admin: 02/27/21 01:22 Dose: 1 tab Documented by: Oxycodone/Acetaminophen (Acetaminophen/Oxycodone 325-5 Mg Tab) 2 tab PO Q4H PRN PRN Reason: Pain (moderate 4-6) Last Admin: 02/27/21 05:46 Dose: 2 tab Documented by: Promethazine HCl (Promethazine 25 Mg/Ml Sdv) 25 mg IM Q6H PRN PRN Reason: Nausea/Vomiting Discontinued Medications Acetaminophen (Acetaminophen 500 Mg Tab) 1,000 mg PO ONETIME ONE Stop: 02/26/21 16:01 Last Admin: 02/26/21 15:43 Dose: 1,000 mg Documented by: Albuterol (Albuterol 0.083% 2.5 Mg/3 Ml Neb Soln) 2.5 mg NEB ONETIME PRN PRN Reason: Wheezing Belladonna Alkaloids/Opium (Belladonna Alkaloids/Opium 16.2-30 Mg Supp) 1 supp RECTAL ONETIME ONE Stop: 02/26/21 12:01 Last Admin: 02/26/21 12:55 Dose: 1 supp Documented by: Bupivacaine HCl (Bupivacaine 0.25% 10 Ml Sdv) Confirm Administered Dose 10 ml .ROUTE .STK-MED ONE Stop: 02/26/21 07:32 Dexamethasone (Dexamethasone 4 Mg/Ml 5 Ml Mdv) Confirm Administered Dose 20 mg .ROUTE .STK-MED ONE Stop: 02/26/21 11:16 Droperidol (Droperidol 5 Mg/2 Ml Sdv) 0.625 mg IVPUSH ONETIME PRN PRN Reason: Nausea/Vomiting Ephedrine Sulfate (Ephedrine 50 Mg/Ml Sdv) Confirm Administered Dose 50 mg .ROUTE .STK-MED ONE Stop: 02/26/21 11:16 Fentanyl (Fentanyl 250 Mcg/5 Ml Sdv) Confirm Administered Dose 250 mcg .ROUTE .STK-MED ONE Stop: 02/26/21 07:11 Fentanyl (Fentanyl 100 Mcg/2 Ml Sdv) 50 mcg IVPUSH Q5M PRN PRN Reason: Pain (mild 1-3) Fentanyl (Fentanyl 250 Mcg/5 Ml Sdv) Confirm Administered Dose 250 mcg .ROUTE .STK-MED ONE Stop: 02/26/21 08:33 Fentanyl (Fentanyl 100 Mcg/2 Ml Sdv) Confirm Administered Dose 100 mcg .ROUTE .STK-MED ONE Stop: 02/26/21 09:55 Fluorescein Sodium (Fluorescein 5 Ml Vial) Confirm Administered Dose 5 ml .ROUTE .STK-MED ONE Stop: 02/26/21 07:31 Glycopyrrolate (Glycopyrrolate 0.2 Mg/Ml Sdv) Confirm Administered Dose 0.6 mg .ROUTE .STK-MED ONE Stop: 02/26/21 11:16 Hydromorphone HCl (Hydromorphone 1 Mg/Ml Syringe) 1 mg IVPUSH Q10M PRN PRN Reason: Pain (moderate 4-6) Last Admin: 02/26/21 10:20 Dose: 1 mg Documented by: Cefazolin Sodium/Dextrose (Ancef 2 Gm/50 Ml) Confirm Administered Dose 50 mls @ as directed .ROUTE .STK-MED ONE Stop: 02/26/21 11:16 Acetaminophen (Ofirmev 1000 Mg/100 Ml) Confirm Administered Dose 100 mls @ as directed .ROUTE .STK-MED ONE Stop: 02/26/21 11:16 Ketamine HCl (Ketamine 500 Mg/10 Ml Mdv) Confirm Administered Dose 500 mg .ROUTE .STK-MED ONE Stop: 02/26/21 08:24 Ketorolac Tromethamine (Ketorolac 30 Mg/Ml Sdv) 30 mg IVPUSH ONETIME ONE Stop: 02/26/21 10:21 Last Admin: 02/26/21 13:24 Dose: Not Given Documented by: Ketorolac Tromethamine (Ketorolac 30 Mg/Ml Sdv) Confirm Administered Dose 30 mg .ROUTE .STK-MED ONE Stop: 02/26/21 11:16 Methylene Blue (Methylene Blue 50 Mg/10 Ml Ampule) Confirm Administered Dose 0 mg .ROUTE .STK-MED ONE Stop: 02/26/21 07:32 Metoclopramide HCl (Metoclopramide 10 Mg/2 Ml Sdv) 10 mg IVPUSH ONETIME PRN PRN Reason: Nausea/Vomiting Midazolam HCl (Midazolam 1 Mg/Ml 2 Ml Sdv) Confirm Administered Dose 0 mg .ROUTE .STK-MED ONE Stop: 02/26/21 07:10 Morphine Sulfate (Morphine 2 Mg/Ml Syringe) 2 mg IVPUSH Q10M PRN PRN Reason: Pain (severe 7-10) Naloxone HCl (Naloxone 0.4 Mg/Ml Syringe) 0.1 mg IVPUSH ASDIRECTED PRN PRN Reason: Respiratory Depression Octyl Cyanoacrylate (Octyl 2-Cyanoacrylate 1 Tube) Confirm Administered Dose 1 applic .ROUTE .STK-MED ONE Stop: 02/26/21 07:32 Ondansetron HCl (Ondansetron 4 Mg/2 Ml Sdv) 4 mg IVPUSH ONETIME PRN PRN Reason: Nausea/Vomiting Ondansetron HCl (Ondansetron 4 Mg/2 Ml Sdv) Confirm Administered Dose 4 mg .ROUTE .STK-MED ONE Stop: 02/26/21 11:16 Propofol (Propofol 200 Mg/20 Ml Sdv) Confirm Administered Dose 200 mg .ROUTE .STK-MED ONE Stop: 02/26/21 07:10 Vecuronium Mccrory (Vecuronium 10 Mg Vial) Confirm Administered Dose 10 mg .RO [place] .STK-MED ONE Stop: 02/26/21 11:16 - Patient Data Lab Results Last 24 hrs: Laboratory Results - last 24 hr 02/27/21 02/27/21 Range/Units 05:10 05:10 WBC 17.17 H (4.0-11.0) K/uL RBC 3.71 L (4.30-5.90) M/uL Hgb 11.1 L (12.0-16.0) g/dL Hct 33.4 L (36.0-46.0) % MCV 90.0 (80.0-98.0) fL MCH 29.9 (27.0-32.0) pg MCHC 33.2 (31.0-37.0) g/dL RDW Std Deviation 44.3 (28.0-62.0) fl RDW Coeff of [place] 14 (11.0-15.0) % Plt Count 319 (150-400) K/uL MPV 9.60 (7.40-12.00) fL Neut % (Auto) 83.3 H (48.0-80.0) % Lymph % (Auto) 8.9 L (16.0-40.0) % [place] % (Auto) 7.7 (0.0-15.0) % Eos % (Auto) 0.0 (0.0-7.0) % Baso % (Auto) 0.1 (0.0-1.5) % Neut # (Auto) 14.3 H (1.4-5.7) K/uL Lymph # (Auto) 1.5 (0.6-2.4) K/uL [place] # (Auto) 1.3 H (0.0-0.8) K/uL Eos # (Auto) 0.0 (0.0-0.7) K/uL Baso # (Auto) 0.0 (0.0-0.1) K/uL Nucleated RBC % 0.0 /100WBC Nucleated RBCs # 0 K/uL Sodium 135 L (136-145) mmol/L Potassium 4.1 (3.5-5.1) mmol/L Chloride 107 (98-107) mmol/L Carbon Dioxide 19.6 L (21.0-32.0) mmol/L BUN 9 (7.0-18.0) mg/dL Creatinine 0.9 (0.6-1.0) mg/dL Est Cr Clr Drug Dosing 65.72 mL/min Estimated GFR (MDRD) > 60.0 ml/min Glucose 117 H (74-106) mg/dL Calcium 7.4 L (8.5-10.1) mg/dL Result Diagrams: 02/27/21 05:10 02/27/21 05:10 Sepsis Event Note - Focused Exam Vital Signs: Vital Signs Pulse Resp BP Pulse Ox 02/27/21 04:20 85 16 101/59 L 97 - Problem List & Annotations (1) S/P hysterectomy SNOMED Code(s): 858503538, 938057326, 812131199 Code(s): Z90.710 - ACQUIRED ABSENCE OF BOTH CERVIX AND UTERUS Status: Acute Current Visit: Yes - My Orders Last 24 Hours: My Active Orders 02/26/21 10:20 Patient Status [ADT] Routine Notify Provider Intake and Out [RC] ASDIRECTED Notify Provider Vital Signs [RC] ASDIRECTED Oxygen Therapy [RC] ASDIRECTED RT Incentive Spirometry [RC] Q2HWA Up With Assistance [RC] PER UNIT ROUTINE Up ad Mariely [RC] PER UNIT ROUTINE Urinary Catheter Removal [RC] Per Unit Routine Vital Signs [RC] PER UNIT ROUTINE Acetaminophen/oxyCODONE [Percocet 325-5 MG] 1 tab PO Q4H PRN Acetaminophen/oxyCODONE [Percocet 325-5 MG] 2 tab PO Q4H PRN Morphine 4 mg IVPUSH Q2H PRN Ondansetron [Zofran] 4 mg IVPUSH Q6H PRN Promethazine [Phenergan] 25 mg IM Q6H PRN DVT/VTE Prophylaxis Reflex [OM.PC] Routine Peripheral IV Discontinue [OM.PC] Routine Sequential Compression Device [OM.PC] Per Unit Routine Resuscitation Status Routine 02/26/21 10:21 Antiembolic Devices [RC] PER UNIT ROUTINE 02/26/21 10:23 Antiembolic Devices [RC] .Routine VTE/DVT Education [RC] PER UNIT ROUTINE 02/26/21 10:30 Dextrose 5%-0.45% NaCl [Dextrose 5%-1/2 NS] 1,000 ml IV ASDIRECTED 02/26/21 Lunch Regular Diet [DIET] Metoclopramide [Reglan] 10 mg IVPUSH Q6H 02/26/21 16:30 Ketorolac [Toradol] 30 mg IVPUSH Q6H PRN 02/26/21 19:00 Ketorolac [Toradol] 30 mg IVPUSH Q6H Sodium Chloride 0.9% [Normal Saline] 1,000 ml IV ASDIRECTED - Assessment Assessment:: 40yo P0 s/p TLH/BS POD1 ,stable - Plan Plan:: Discharge home today Incentive spirometry Lovenox 40mg
[2021-02-27 08:37] VITALS: BP 104/55; PULSE 95
--- NOTE | 2021-02-28 08:02 | OR ---
SURGEON: LULA ARTHUR DATE OF PROCEDURE: 02/26/2021 PREOPERATIVE DIAGNOSIS: 40-year-old, G15, P0-0-15-0, with chronic pelvic pain. POSTOPERATIVE DIAGNOSIS: 40-year-old, G15, P0-0-15-0, with chronic pelvic pain. PROCEDURES: Total laparoscopic hysterectomy, bilateral salpingectomy, and cystoscopy. Houston culdoplasty IV FLUIDS: 2000. ESTIMATED BLOOD LOSS: 20. URINE OUTPUT: 100. ANESTHESIA: General. FINDINGS: Normal-sized anteverted uterus. Minimal pain. Filmy adhesions between the anterior lower uterine segment and the bladder peritoneum. Dense omental adhesion to the anterior abdominal wall. Cystoscopy showed normal uterus and cystoscopy showed normal bladder with bilateral ureteral orifice. COMPLICATIONS: None. BRIEF HISTORY ABOUT THE PATIENT: A 40-year-old, G15, P0-0-15-0, history of myomectomy, had chronic pelvic pain, was managed with physical therapy with no improvement. Initially, when she had the pelvic pain, she had the fibroid which was removed. She had some relief afterwards, but the patient came back complaining of pain. Trigger shot injection was tried, no improvement. Pelvic therapy was tried, no improvement. At this point, the patient did desire total laparoscopic hysterectomy. She was informed that she may have improvement in pain, however, she might not have any improvement in her pain. She was explained the risks, benefits, alternatives, and she decided to proceed. DESCRIPTION OF PROCEDURE: The patient was taken to the operating room where general anesthesia was performed without difficulty. She was prepared and draped in the dorsal lithotomy position with Jose stirrups. A Quinn catheter was placed. A speculum was used to expose the cervix. The anterior lip was grasped. The cervix was sized to 3.5. The cervix was then dilated to accommodate the Advincula, and the uterus was sounded to 9 cm. The Advincula was placed without difficulty. Then, attention was placed to the abdomen where 5 mm incision was made about 3 to 4 cm above the umbilicus due to the history of a tummy abdominal abdominoplasty. First incision was made about 4 cm above the new umbilicus. 0.25% Marcaine was injected. The abdomen was then entered via direct entry. The entry was confirmed with low intraabdominal pressure of 5 mmHg, then the CO2 pneumoperitoneum was obtained to 15 mmHg. The patient was placed in Trendelenburg position. Then, there were 2 ports placed. Then, the right and left quadrant ports were placed. 5 mm incision was made 2 fingerbreadths superior and medial to the anterior superior iliac spine. The adhesions were noted. The omental adhesions were removed with a LigaSure. Then, the uterus was elevated into the operative field. The colon was gently retracted out of the posterior cul-de-sac. There was some adhesion between the colon on the left to the sidewall. The right tube was grasped by the bilingual teacher assistant and with the aid of the LigaSure device this was sequentially coagulated and cut to separate it from the ovary,. The uterus was all the way to the cornua of the uterus. The left tube was detached in the same fashion. The round ligament was transected 2/3 from the uterus and 1/3 from the pelvic sidewall. The anterior-posterior broad ligament was to expose the uterine artery. The uterine artery was skeletonized. The bladder flap was created with the aid of the Harmonic scalpel. The mucosa was then coagulated at the cervicovaginal junction and lateralized. The Advincula cup was then entered, and a circumferential incision was made between the cervix and the vagina with the Harmonic device. This was done on the right and the left with a circumferential incision around the colpotomy cup. The uterus was then detached. Attention was then paid to the peritoneum where the uterus was then removed. Uterosacral ligament was identified. The Houston culdoplasty stitch was done with 2-0 Vicryl. It was placed from the posterior vaginal wall to the uterosacral over the pelvic peritoneum and the cul-de-sac to the other uterosacral ligament. Then, the colpotomy cup was closed anteroposteriorly with an interlocking stitch of 0 Polysorb. IV sodium fluorescein was given. The cystoscopy was then performed and bilateral ureteral jets were observed and the bladder was noted to be intact. Then, a sponge stick was placed in the vagina. Attention was placed to the abdomen. Incision was inspected, was noted to be hemostatic. The pneumoperitoneum was just 5 mmHg and was also noted to be hemostatic. The gas was deflated and all the trocars were removed. The incision was closed with 3-0 Vicryl. All instrument and pad counts were correct x2. The patient tolerated the procedure well and was taken to the recovery room in stable condition. YURI LOU /[id number] MTDD
== END ==
LOC: MW.SDS 06:29 → MW.OB 10:40 → UNDOADMIN 10:55 → MW.SDS 10:55 → MW.OB 10:55 → UNDODISIN 02-27 10:35
PROVIDERS: ATTEND Obstetrics & Gynecology
DX: N80.0 Endometriosis of uterus (principal); Z87.891 Personal history of nicotine dependence; Z79.82 Long term (current) use of aspirin; Z79.899 Other long term (current) drug therapy
CPT/HCPCS: 36415; 58571; 80048; 84703; 85027; 86850; 86900; 86901; 88307; A9270; J0131; J0690; J1100; J1170; J1885; J2270; J2405; J2704; J2765; J3010; J3490; J7030; J7042; J7120; 00840; 85025; J1650; J2250

== ENCOUNTER 2021-03-28 16:11 | Emergency (ER) | payer BC ==
[2021-03-28 16:36] VITALS: BP 123/86; PULSE 91
[2021-03-28] MEDS ORDERED: Acetaminophen/HYDROcodone 325-5 MG Tab PO ONE (16:37)
[2021-03-28] MEDS ORDERED: Ketorolac 60 MG/2 ML SDV IM ONE (16:37)
--- NOTE | 2021-03-28 16:44 | EDM.PDOC ---
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 According to chart review, patient had a total laparoscopic hysterectomy with bilateral salpingectomy and cystoscopy performed on 02/26/2021 secondary to chronic pelvic pain performed by Dr. Arden Moran from [facility]. According to documentation, there were no complications. Patient states that since her hysterectomy, she has been at home and not working. Patient states that she went back to work and did not perform any light duty" went right back into it ". Patient feels that this exacerbated her abdominal pain so she called the clinic today and had lab work and imaging done earlier today. Patient states that Dr. Moran was not available today and felt like she needed pain control so came to the emergency room for further evaluation. Patient denies fever, chills, chest pain, shortness of breath, or cough. Denies headache, neck stiff ness, change in vision, syncope, or near syncope. Denies nausea, vomiting,, diarrhea, constipation, or dysuria. Has not noted any blood in urine or stool. Patient has been eating and drinking appropriately. Review of systems: As per history of present illness and below otherwise all systems reviewed and negative. Past medical history: As per history of present illness and as reviewed below otherwise noncontributory. Surgical history: As per history of present illness and as reviewed below otherwise noncontributory. Social history: See social history for further information Family history: As per history of present illness and as reviewed below otherwise noncontributory. Physical exam: General: Patient is alert, oriented, and in no acute distress. Patient laying comfortably on exam table. Vitals stable and reviewed by me. HEENT: Atraumatic, normocephalic, pupils equal and reactive bilaterally, negative for conjunctival pallor or scleral icterus, mucous membranes moist, throat clear, neck supple, nontender, trachea midline. No drooling or trismus noted. No meningeal signs. No hot potato voice noted. Lungs: Clear to auscultation, breath sounds equal bilaterally, chest nontender. Heart: S1S2, regular rate and rhythm without overt murmur Abdomen: Scarring consistent with surgical history and appears to be well-healed without drainage or erythema. Otherwise, soft, nondistended, diffuse abdominal tender. Negative for masses or hepatosplenomegaly. Negative for costovertebral tenderness. Pelvis: Stable nontender. Genitourinary: Deferred. Rectal: Deferred. Skin: Intact, warm, dry. No lesions or rashes noted. Extremities: Atraumatic, negative for cords or calf pain. Neurovascular unremarkable. Neuro: Awake, alert, oriented. Cranial nerves II through XII unremarkable. Cerebellum unremarkable. Motor and sensory unremarkable throughout. Exam nonfocal. Notes: Patient is a 40-year-old female, who presents emergency room today with desire for pain control secondary to abdominal pain from hysterectomy performed on 02/26/2021, approximately 1 month ago. Upon arrival to the ED, patient is vitally stable and well-appearing on exam. Patient does have some diffuse abdominal discomfort on exam, scarring consistent with recent surgical history and appear to be healing well. Patient does have lab work already performed from earlier today 03/28/2021 at 9:50 AM. CBC unremarkable with with a normal white blood cell count at 7.09. BMP unremarkable. (no AST/ALT/total bili performed today). Patient also has an abdominal pelvic CT scan with and without contrast performed today 03/28/2021 at 12:42 PM. Impression:postoperative changes of the anterior abdominal wall and hysterectomy. No obvious complication. Minimal bladder wall thickening likely due to underdistention. Correlate with urinalysis. Probable 1.7 cm corpus luteum on the right ovary. Diffuse hepatic steatosis. Patient does not have a urine sample from today and provide pain control. Will obtain UA, Add on ALT/AST/Total bili from labs earlier today. ALT AST and total bili within normal limits. Urinalysis does show 3-6 white blood cells with positive leukocyte Estrace. I did discuss with patient and she states that she has been having some mild discomfort with urination. Concern for possible early urinary tract infection. We will treat for this with antibiotic at this time given patient is mildly symptomatic. Upon reevaluation of patient, she remains vitally stable and has improvement of her symptoms with therapeutics today in the emergency room. I did call and speak to PERSONNEL RECORDS CLERK provider on-call for [facility], Dr. Orozco, and thoroughly discussed patient's case. She does not have any other recommendations at this time and would like patient to follow up tomorrow in their clinic. Strict return precautions thoroughly discussed with patient. Discussed importance for follow-up with PERSONNEL RECORDS CLERK provider tomorrow. Voices understanding and is agreeable to plan of care. Denies any further questions or concerns at this time. Diagnostics: UA, AST/ALT, total bilirubin Therapeutics: Toradol, Donna Prescription: Keflex Impression: Postop abdominal pain Urinary tract infection, early Plan: 1. Take medication as prescribed. Continue to alternate ibuprofen and Tylenol as directed for pain and discomfort. 2. Follow-up with [facility] tomorrow as discussed. They are planning to see you for follow-up tomorrow. Call the clinic to establish an appointment time as discussed. 3. Return to the ED as needed and as discussed. Definitive disposition and diagnosis as appropriate pending reevaluation and review of above. Bilateral Pelvic Pain Score (Numeric/FACES): 7 - Related Data Allergies Allergy/AdvReac Type Severity Reaction Status Date / Time No Known Allergies Allergy Verified 03/28/21 16:28 Home Meds: Home Meds FLUoxetine HCl [Prozac] 40 mg PO QAM 09/09/17 [History] busPIRone [Buspar] 10 mg PO TID 10/05/20 [History] Topiramate [Topamax] 150 mg PO DAILY 02/20/21 [History] cephALEXin [Keflex] 500 mg PO Q8H 5 Days #15 cap 03/28/21 [Rx] Past Medical History HEENT 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: Other (See Below) Other HEENT History: wears glasses Cardiovascular 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: Other (See Below) Other Cardiovascular History: states had a murmur in her early teens Respiratory 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: None Gastrointestinal 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: None, Other (See Below) Genitourinary 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: None PERSONNEL RECORDS CLERK 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 Other PERSONNEL RECORDS CLERK History: spontaneous AB x15 Musculoskeletal 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: Arthritis Neurological 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: Migraines Psychiatric 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: Anxiety, Depression, Panic Attack Endocrine/Metabolic 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: None Hematologic 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: None, Other (See Below) Immunologic 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: None Oncologic (Cancer) 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: None Dermatologic 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: None - Infectious Disease History Infectious Disease 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: None - Past Surgical History Head Surgeries/Procedures: Reports: None HEENT Surgical 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: None Cardiovascular Surgical 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: None Respiratory Surgical 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: None GI Surgical 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: None Female Surgical 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: Other (See Below) Other Female Surgeries/Procedures: hysteroscopy 09/08/2017, laparotomy with myomectomy 12/07/2017 Endocrine Surgical 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: None Neurological Surgical 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: None Musculoskeletal Surgical 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: None Oncologic Surgical 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: None Dermatological Surgical 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: Plastic Surgical Reconstruction/Repair, Other (See Below) Social & Family History - Family History Family Medical History: No Pertinent Family History - Caffeine Use Caffeine Use: Reports: None ED ROS GENERAL - Review of Systems Review Of Systems: Comprehensive ROS is negative, except as noted in HPI. ED EXAM, GENERAL - Physical Exam Exam: See Below (see dictation) Course - Vital Signs Last Recorded V/S: Last Vital Signs Temp 98.7 F 03/28/21 16:30 Pulse 91 03/28/21 16:30 Resp 17 03/28/21 16:30 BP 123/86 03/28/21 16:30 Pulse Ox 99 03/28/21 16:30 - Orders/Labs/Meds Orders: Active Orders 24 hr Category Date Time Status CULTURE URINE [MREF] Stat Lab 03/28/21 16:52 Received Labs: Laboratory Tests 03/28/21 03/28/21 Range/Units 09:50 16:52 Total Bilirubin 0.3 (0.2-1.0) mg/dL AST 19 (15-37) IU/L ALT 25 (14-63) IU/L Urine Color YELLOW Urine Appearance HAZY Urine pH 6.5 (5.0-8.0) Ur Specific Cooper 1.020 (1.001-1.035) Urine Protein NEGATIVE (NEGATIVE) mg/dL Urine Glucose (UA) NEGATIVE (NEGATIVE) mg/dL Urine Ketones NEGATIVE (NEGATIVE) mg/dL Urine Occult Blood MODERATE H (NEGATIVE) Urine Nitrite NEGATIVE (NEGATIVE) Urine Bilirubin NEGATIVE (NEGATIVE) Urine Urobilinogen 0.2 (<2.0) EU/dL Ur Leukocyte Esterase TRACE H (NEGATIVE) Urine RBC 1-3 (0-2/HPF) Urine WBC 3-6 (0-5/HPF) Ur Epithelial Cells MODERATE (NONE-FEW) Urine Bacteria FEW (NEGATIVE) Urine Mucus LIGHT (NONE-MOD) Urinalysis Comment Meds: Medications Discontinued Medications Generic Name Dose Route Start Last Admin Trade Name Gianna PRN Reason Stop Dose Admin Hydrocodone Bitart/Acetaminophen 1 tab 03/28/21 16:37 03/28/21 16:46 Acetaminophen/Hydrocodone 325-5 Mg Tab PO 03/28/21 16:38 1 tab ONETIME ONE Administration Ketorolac Tromethamine 60 mg 03/28/21 16:37 03/28/21 16:50 Ketorolac 60 Mg/2 Ml Sdv IM 03/28/21 16:38 60 mg ONETIME ONE Administration Departure - Departure Time of Disposition: 17:25 Disposition: Home, Self-Care 01 Clinical Impression: Postoperative abdominal pain Urinary tract infection Qualifiers: Urinary tract infection type: acute cystitis Hematuria presence: without hematuria Qualified Code(s): N30.00 - Acute cystitis without hematuria - Discharge Information Prescriptions: cephALEXin [Keflex] 500 mg PO Q8H 5 Days #15 cap Referrals: Cece Martin REPRODUCTION MACHINE LOADER [Primary Care Provider] - Forms: ED Department Discharge Additional Instructions: The following information is given to patients seen in the emergency department who are being discharged to home. This information is to outline your options for follow-up care. We provide all patients seen in our emergency department with a follow-up referral. The need for follow-up, as well as the timing and circumstances, are variable depending upon the specifics of your emergency department visit. If you don't have a primary care physician on staff, we will provide you with a referral. We always advise you to contact your personal physician following an emergency department visit to inform them of the circumstance of the visit and for follow-up with them and/or the need for any referrals to a consulting specialist. The emergency department will also refer you to a specialist when appropriate. This referral assures that you have the opportunity for follow-up care with a specialist. All of these measure are taken in an effort to provide you with optimal care, which includes your follow-up. Under all circumstances we always encourage you to contact your private physician who remains a resource for coordinating your care. When calling for follow-up care, please make the office aware that this follow-up is from your recent emergency room visit. If for any reason you are refused follow-up, please contact the [facility] Emergency Department at and asked to speak to the emergency department charge nurse. [facility] [address] [place] [address] 1. Take medication as prescribed. Continue to alternate ibuprofen and Tylenol as directed for pain and discomfort. 2. Follow-up with [facility] tomorrow as discussed. They are planning to see you for follow-up tomorrow. Call the clinic to establish an appointment time as discussed. 3. Return to the ED as needed and as discussed. Sepsis Event Note (ED) - Focused Exam Vital Signs: Vital Signs Temp Pulse Resp BP Pulse Ox 03/28/21 16:30 98.7 F 91 17 123/86 99 - My Orders Last 24 Hours: My Active Orders 03/28/21 16:52 CULTURE URINE [MREF] Stat - Assessment/Plan Last 24 Hours: My Active Orders 03/28/21 16:52 CULTURE URINE [MREF] Stat
== END 2021-03-28 17:45 | disposition home or self-care (01) ==
LOC: MW.ED 16:11
DX: G89.18 Other acute postprocedural pain (principal); R10.2 Pelvic and perineal pain; N30.00 Acute cystitis without hematuria; M19.90 Unspecified osteoarthritis, unspecified site; Z90.710 Acquired absence of both cervix and uterus; Z90.722 Acquired absence of ovaries, bilateral
CPT/HCPCS: 36415; 81001; 82247; 84450; 84460; 87086; 96372; 99284; A9270; J1885

== ENCOUNTER 2023-01-08 13:23 | Emergency (ER) | payer OTHER, BC ==
[2023-01-08] MEDS ORDERED: Sodium Chloride 0.9% 2.5 ML Syringe FLUSH PRN (13:25)
[2023-01-08] MEDS ORDERED: Sodium Chloride 0.9% 10 ML Syringe FLUSH PRN (13:25)
[2023-01-08] MEDS ORDERED: Sodium Chloride 0.9% 1,000 ML IV STA (13:37)
[2023-01-08 14:17] LABS: BASOPHILS ABSOLUTE AUTO 0.1 K/uL (0.0-0.1); BASOPHILS PERCENT AUTO 0.7 % (0.0-1.5); EOSINOPHILS ABSOLUTE AUTO 0.3 K/uL (0.0-0.7); EOSINOPHILS PERCENT AUTO 3.9 % (0.0-7.0); HEMATOCRIT 39.8 % (36.0-46.0); HEMOGLOBIN 13.6 g/dL (12.0-16.0); LYMPHOCYTES ABSOLUTE AUTO 2.9 K/uL (0.6-2.4); LYMPHOCYTES PERCENT AUTO 41.3 % (16.0-40.0); MEAN CORPUSCULAR HEMOGLOBIN 31.3 pg (27.0-32.0); MEAN CORPUSCULAR HGB CONC 34.2 g/dL (31.0-37.0); MEAN CORPUSCULAR VOLUME 91.7 fL (80.0-98.0); MONOCYTES ABSOLUTE AUTO 0.6 K/uL (0.0-0.8); MONOCYTES PERCENT AUTO 8.4 % (0.0-15.0); NEUTROPHILS ABSOLUTE AUTO 3.2 K/uL (1.4-5.7); NEUTROPHILS PERCENT AUTO 45.7 % (48.0-80.0); NRBC ABSOLUTE 0 K/uL; PLATELET COUNT,PLT 267 K/uL (150-400); RED BLOOD CELL COUNT 4.34 M/uL (4.30-5.90)
[2023-01-08 14:19] LABS: A/G RATIO 0.8 (0.9-1.6); ALANINE AMINOTRANSFERASE,ALT 139 IU/L (14-63); ALBUMIN 3.2 g/dL (3.4-5.0); ALKALINE PHOSPHATASE 95 U/L (46-116); ASPARTATE AMNIOTRANSFERASE,AST 120 IU/L (15-37); BILIRUBIN TOTAL 0.1 mg/dL (0.2-1.0); BLOOD UREA NITROGEN,BUN 9 mg/dL (7.0-18.0); CALCIUM 8.1 mg/dL (8.5-10.1); CARBON DIOXIDE,CO2 19.8 mmol/L (21.0-32.0); CHLORIDE,CL 106 mmol/L (98-107); ESTIMATED GFR 72 mL/min (>60); ETHANOL BLOOD MEDICAL 251 mg/dL; GLUCOSE RANDOM 105 mg/dL (74-106); HCG QUANTITATIVE < 1.0 mIU/mL; LIPASE 106 U/L (73-393); POTASSIUM,K 3.8 mmol/L (3.5-5.1); PROTEIN TOTAL,TP 7.1 g/dL (6.4-8.2); SODIUM,NA 142 mmol/L (136-145)
[2023-01-08] MEDS ORDERED: HYDROmorphone 1 MG/ML Syringe IVPUSH STA (14:19)
[2023-01-08] MEDS ORDERED: Ondansetron 4 MG/2 ML SDV IVPUSH STA (14:19)
[2023-01-08 14:25] LABS: AMPHETAMINES SCREEN, URINE NEGATIVE (CUTOFF=500); BARBITURATE SCREEN,URINE NEGATIVE (CUTOFF=200); BENZODIAZEPINES SCREEN,URINE NEGATIVE (CUTOFF=150); BUPRENORPHINE SCREEN,URINE NEGATIVE (CUTOFF=10); METHADONE SCREEN, URINE NEGATIVE (CUTOFF=200); METHAMPHETAMINES SCREEN, URINE NEGATIVE (CUTOFF=500); OXYCODONE SCREEN,URINE NEGATIVE (CUT0FF=100); PCP SCREEN,URINE NEGATIVE (CUTOFF=25); PROPOXYPHENE SCREEN,URINE NEGATIVE (CUTOFF=300); THC SCREEN,URINE 20 NG/ML NEGATIVE (CUTOFF=50)
[2023-01-08 14:35] LABS: SALICYLATE 1.1 mg/dL (0.0-20.0)
[2023-01-08 14:53] VITALS: BP 97/59; PULSE 94
[2023-01-08 14:54] LABS: INR 1.02 (0.86-1.11)
[2023-01-08] MEDS ORDERED: Iopamidol 755 Mg/ML 100 ML Bottle IVPUSH ONE (18:52)
== END 2023-01-08 17:11 ==
LOC: MERGE 13:23 → EDBD 13:23 → MW.ED 13:23
DX: S20.212A Contusion of left front wall of thorax, initial encounter (principal); R41.82 Altered mental status, unspecified; R04.0 Epistaxis; Z79.899 Other long term (current) drug therapy; V49.40XA Driver injured in collision with unspecified motor vehicles in traffic accident, initial encounter; Y92.410 Unspecified street and highway as the place of occurrence of the external cause
CPT/HCPCS: 36415; 70450; 71260; 72125; 72128; 72131; 74177; 80053; 80179; 80305; 80307; 83690; 84484; 84702; 85025; 85610; 86850; 86900; 86901; 93005; 96361; 96374; 96375; 99285; G0390; J1170; J2405; J3490; J7030; Q9967; 93010; 99291

== ENCOUNTER 2023-03-05 22:33 | Emergency (ER) | payer BC ==
[2023-03-05] MEDS ORDERED: Sodium Chloride 0.9% 2.5 ML Syringe FLUSH PRN (23:06)
[2023-03-05] MEDS ORDERED: Sodium Chloride 0.9% 10 ML Syringe FLUSH PRN (23:06)
[2023-03-05] MEDS ORDERED: Morphine 4 MG/ML Syringe IVPUSH ONE (23:07)
[2023-03-05 23:36] LABS: BASOPHILS PERCENT AUTO 0.1 % (0.0-1.5); HEMATOCRIT 36.6 % (36.0-46.0); HEMOGLOBIN 12.4 g/dL (12.0-16.0); LYMPHOCYTES PERCENT AUTO 6.5 % (16.0-40.0); MEAN CORPUSCULAR HEMOGLOBIN 30.7 pg (27.0-32.0); MEAN CORPUSCULAR HGB CONC 33.9 g/dL (31.0-37.0); MEAN CORPUSCULAR VOLUME 90.6 fL (80.0-98.0); MONOCYTES ABSOLUTE AUTO 0.3 K/uL (0.0-0.8); MONOCYTES PERCENT AUTO 1.9 % (0.0-15.0); NEUTROPHILS ABSOLUTE AUTO 14.4 K/uL (1.4-5.7); NEUTROPHILS PERCENT AUTO 91.5 % (48.0-80.0); NRBC ABSOLUTE 0 K/uL; PLATELET COUNT,PLT 320 K/uL (150-400); RED BLOOD CELL COUNT 4.04 M/uL (4.30-5.90); WHITE BLOOD CELL COUNT,WBC 15.73 K/uL (4.0-11.0)
[2023-03-05 23:59] LABS: D-DIMER QUANTITATIVE 0.26 mg/L FEU (0.00-0.50); INR 1.05 (0.86-1.11)
[2023-03-06 00:34] LABS: A/G RATIO 0.9 (0.9-1.6); ALANINE AMINOTRANSFERASE,ALT 60 IU/L (14-63); ALBUMIN 3.4 g/dL (3.4-5.0); ALKALINE PHOSPHATASE 73 U/L (46-116); ASPARTATE AMNIOTRANSFERASE,AST 42 IU/L (15-37); BILIRUBIN TOTAL 0.2 mg/dL (0.2-1.0); BLOOD UREA NITROGEN,BUN 8 mg/dL (7.0-18.0); CALCIUM 8.2 mg/dL (8.5-10.1); CARBON DIOXIDE,CO2 18.3 mmol/L (21.0-32.0); CHLORIDE,CL 105 mmol/L (98-107); CREATININE 1.1 mg/dL (0.6-1.0); EST CRCL DRUG DOSING (CG) 52.69 mL/min; GLUCOSE RANDOM 163 mg/dL (74-106); LACTIC ACID 3.4 mmol/L (0.4-2.0); PROTEIN TOTAL,TP 7.4 g/dL (6.4-8.2); SODIUM,NA 138 mmol/L (136-145)
[2023-03-06 00:36] LABS: ESTIMATED GFR 64 mL/min (>60)
[2023-03-06] MEDS ORDERED: Iopamidol 755 MG/ML 500 ML Multipack Bottle IVPUSH STA (01:48)
[2023-03-06] MEDS ORDERED: Sodium Chloride 0.9% 1,000 ML IV ONE ×2 (02:01→02:34)
[2023-03-06] MEDS ORDERED: Morphine 4 MG/ML Syringe IVPUSH ONE (02:39)
[2023-03-06 05:40] VITALS: BP 121/81; PULSE 62
== END 2023-03-06 05:40 | disposition home or self-care (01) ==
LOC: MW.ED 22:33
DX: R07.9 Chest pain, unspecified (principal); Z41.1 Encounter for cosmetic surgery
CPT/HCPCS: 36415; 71045; 71275; 80053; 83605; 84484; 85025; 85379; 85610; 93005; 96374; 96376; 99285; J2270; J3490; J7030; Q9967; 93010; 99284